=== PATIENT | female | born 1955 | race African-American/Black ===

== ENCOUNTER 2017-07-28 18:23 | Emergency (ER) | payer MEDICAID, OTHER ==
[2017-07-28 19:36] LABS: #Lymphocytes 1.9 thou/uL (1.20-3.40); #Monocytes 0.2 thou/uL (0.11-0.59); %Basophils 0.1 % (0.0-1.0); %Eosinophils 0.2 % (0.0-10.0); %Lymphocytes 37.4 % (21.0-51.0); %Monocytes 4.4 % (0.0-10.0); Hematocrit 40.4 % (36.0-47.0); Mean Platelet Volume 8.1 fL (7.4-10.4); Red Blood Cell (RBC) Count 4.57 mill/uL (4.20-5.40); White Blood Cell (WBC) Count 5.2 thou/uL (4.8-10.8)
[2017-07-28 19:54] LABS: Anion Gap 12 mmol/L (10-20); BUN (Urea Nitrogen) 26 mg/dL (9.8-20.1); Calc. Creatinine Clearance 0 mL/min (70-130); Calcium 9.5 mg/dL (7.8-10.44); Carbon Dioxide 28 mmol/L (23-31); Chloride 106 mmol/L (98-107); Estimated GFR-MDRD 58
[2017-07-28 20:23] LABS: Bilirubin Negative (Negative); Blood, Urine Trace (Negative); Glucose, Urine (Dipstick) Negative (Negative); Ketone, Urine Negative (Negative); Nitrite Negative (Negative); Protein, Urine (Dipstick) 100 mg/dL (Neg-Trace); Urobilinogen 0.2 mg/dL (0.2-1.0)
[2017-07-28 20:24] LABS: Bacteria/HPF None Seen HPF (None Seen); Hyaline Casts/LPF 0-3 HYALINE CAST LPF (0-3 Hyaline); RBC/HPF 0-3 HPF (0-3); Squamous Epithelial 0-3 HPF (0-3); WBC/HPF 0-3 HPF (0-3)
== END 2017-07-28 21:28 | disposition home or self-care (01) ==
LOC: ERS 18:23
DX: S30.814A Abrasion of vagina and vulva, initial encounter (principal); E11.9 Type 2 diabetes mellitus without complications; E78.5 Hyperlipidemia, unspecified; F32.9 Major depressive disorder, single episode, unspecified; Z79.899 Other long term (current) drug therapy; Z79.84 Long term (current) use of oral hypoglycemic drugs
CPT/HCPCS: 36415; 51701; 80048; 81003; 81015; 82274; 85025; 87086; 87480; 87491; 87510; 87591; 87660; A4353

== ENCOUNTER 2020-03-01 16:23 | Inpatient (IN) | payer OTHER ==
[2020-03-01 17:31] LABS: #Monocytes 0.3 thou/uL (0.11-0.59); #Neutrophils 4.1 thou/uL (1.40-6.50); %Basophils 0.1 % (0.0-1.0); %Eosinophils 0.3 % (0.0-10.0); %Lymphocytes 17.8 % (21.0-51.0); %Monocytes 5.1 % (0.0-10.0); %Neutrophils 76.7 % (42.0-75.0); Hemoglobin 11.4 g/dL (12.0-16.0); Mean Corpuscular HGB CONC 33.6 g/dL (32.0-36.0); Mean Corpuscular Hemoglobin 30.8 pg (27.0-31.0); Mean Corpuscular Volume 91.8 fL (78.0-98.0); Mean Platelet Volume 8.6 fL (7.4-10.4); Platelet Count 176 thou/uL (130-400); RBC Distribution Width 12.6 % (11.5-14.5); White Blood Cell (WBC) Count 5.4 thou/uL (4.8-10.8)
--- NOTE | 2020-03-01 17:46 | RAD ---
SINGLE VIEW OF THE CHEST: 03/01/20 COMPARISON: 08/14/09. HISTORY: Shortness of breath and congestion for a week. FINDINGS: Single view of the chest shows an enlarged cardiomediastinal silhouette. There appears to be a small left pleural effusion. Adjacent atelectasis may be present. IMPRESSION: 1. Cardiomegaly. 2. Small left pleural effusion. POS: EAA
[2020-03-01 17:53] LABS: ALT (SGPT) 8 U/L (8-55); AST (SGOT) 10 U/L (5-34); Albumin 3.2 g/dL (3.4-4.8); Alkaline Phosphatase 55 U/L (40-110); Anion Gap 14 mmol/L (10-20); BUN (Urea Nitrogen) 28 mg/dL (9.8-20.1); Bilirubin, Total 0.5 mg/dL (0.2-1.2); Calc. Creatinine Clearance 0 mL/min (70-130); Calcium 8.2 mg/dL (7.8-10.44); Carbon Dioxide 24 mmol/L (23-31); Chloride 115 mmol/L (98-107); Estimated GFR-MDRD 26; Globulin 3.4 g/dL (2.4-3.5); Glucose 98 mg/dL (80-115); Potassium 4.7 mmol/L (3.5-5.1); Protein, Total 6.6 g/dL (6.0-8.3); Sodium 148 mmol/L (136-145)
[2020-03-01] MEDS ORDERED: Acetaminophen 500 MG TAB ONE (20:37)
[2020-03-01] MEDS ORDERED: Enoxaparin Sodium 100 MG/ML SYRINGE ONE (21:23)
[2020-03-01] MEDS ORDERED: Azithromycin 500 MG VIAL ONE (21:23)
[2020-03-01] MEDS ORDERED: Senokot S 8.6-50 MG TAB PO PRN (21:52)
[2020-03-01] MEDS: Sodium Chloride 0.45% 1,000 ML IV SCH (22:35)
[2020-03-02] MEDS ORDERED: Simethicone Chewable 80 MG TAB PO PRN (02:41)
--- NOTE | 2020-03-02 03:20 | HP ---
CHIEF COMPLAINT: Shortness of breath. HISTORY OF PRESENT ILLNESS: The patient is a 64-year-old female, who lives at [facility], who presents to the hospital with complaints of shortness of breath going on for the past week. Per the ER records, it is noted that the there was an employee at [facility] who was positive for COVID. The patient was swabbed on , however, her results have not been up yet. The patient has a history of stroke with left-sided weakness and paralysis. She denies any cough, denies any fevers; however, states that she has been feeling shortness of breath at times. Denies any chest tightness, any abdominal pain. However, she stated that she had some diarrhea yesterday, which resolved. The patient is bed-bound and does not ambulate. In the ER, she was given Lovenox full dose. Unable to get a CTA for concerns for acute kidney injury. The patient states that she has been short of breath and that is why she has not been eating and drinking very much. However, denies any difficulty swallowing or any pain. PAST MEDICAL HISTORY: She has a history of stroke, has a history of epilepsy, anemia, osteoporosis, acute subdural hematoma, hemorrhoids, diabetes type 2, and hyperlipidemia. PAST SURGICAL HISTORY: She has had a subdural hematoma and surgical history of cholecystectomy. SOCIAL HISTORY: She denies any alcohol use, drug use, or smoking history. She is a full code. REVIEW OF SYSTEMS: All negative except the ones mentioned above in the HPI. ALLERGIES: NO KNOWN DRUG ALLERGIES. MEDICATIONS: She is on the following medications; 1. Amlodipine 10 mg daily. 2. She is on amoxicillin 500 mg twice a day until 03/04. 3. Atorvastatin 40 mg daily. 4. Colace 100 mg as needed. 5. Coreg 25 mg twice a day. 6. Hydralazine 10 mg every 6 hours as needed. 7. Hydralazine 25 mg twice a day. 8. Ipratropium as needed. 9. Levothyroxine 50 mcg daily. 10. Sertraline 25 mg daily. 11. Vitamin D daily. PHYSICAL EXAMINATION: VITAL SIGNS: As of the following; temperature 98.0, 86, 18, 92% on room air, 129/86. GENERAL: She is awake, alert, and oriented x3. Does not appear in any distress. CV: S1, S2 present. No murmurs, rubs, or gallops. LUNGS: Clear to auscultation. No rhonchi or wheezes noted. ABDOMEN: Soft, nontender. Bowel sounds are present x2. EXTREMITIES: She does have lower extremity edema. NEUROVASCULAR: She does have left-sided paralysis, upper extremity and lower extremity and she does have some slurred speech also. SKIN: No cuts, lesions or bruises noted. LABORATORY RESULTS: Her EKG is reviewed which appears to be regular normal sinus. WBC of 5.0, hemoglobin of 11.4, hematocrit of 34.0, platelets of 176, lymphocytes are low. Chemistry; sodium of 148, potassium of 4.7, BUN of 20, creatinine of 2.31. LFTs are normal. Troponins are negative. Her urine appears she has trace of blood. She did have a chest x-ray which indicated small left pleural effusion and cardiomegaly. ASSESSMENT AND PLAN: The patient is a 64-year-old female, who presents to the hospital with complaints of dyspnea. 1. Shortness of breath. The patient did have mildly elevated BNP of 117, however, nothing significant. Her chest x-ray has some mild effusion, nothing significant either. We will go ahead and get an echocardiogram on this patient. We retest her for COVID since we called the senior care who stated that the results might take about a week to come back. She may benefit from the Decadron if she is COVID positive. She is currently now on COVID isolation. I will hold off on the neb treatments. However, her lungs sound clear. We will hydrate her gently and see if her creatinine improves. 2. Acute kidney injury. Her baseline creatinine back in 2017 was 1.15, she is currently 2.31. We will hydrate her, check her labs in the morning. 3. Hypernatremia, possible from dehydration, mild. We will continue to monitor and give her some half-normal saline. 4. Cerebrovascular accident. I do not see aspirin on her medication list. It states that she had a subdural hematoma, unclear how old that is. We will continue the statin and I will add a baby aspirin. 5. Deep venous thrombosis prophylaxis. I will put her on Lovenox or heparin for deep vein thrombosis prophylaxis. Her D-dimer was only mildly elevated at 0.77. Unclear of the etiology of her shortness of breath. We will also get Speech to evaluate her for possible aspiration. Job ID: [id number]
[2020-03-02] MEDS: AMOXicillin 250 MG CAP PO SCH ×3 (06:10→20:39)
[2020-03-02] MEDS: Levothyroxine Sodium 50 MCG TAB PO SCH (06:11)
[2020-03-02] MEDS: Carvedilol 25 MG TAB PO SCH ×2 (08:20→16:41)
[2020-03-02] MEDS: Aspirin 81 mg Enteric Coated Tablet PO SCH (08:20)
[2020-03-02] MEDS: Ezetimibe 10 MG TAB PO SCH (08:20)
[2020-03-02] MEDS: Latanoprost 0.005% Ophth Soln 2.5 ml Bottle EA EYE SCH (08:20)
[2020-03-02] MEDS ORDERED: Furosemide 40 MG/4 ML VIAL SLOW IVP SCH ×2 (09:00→15:30)
[2020-03-02] MEDS ORDERED: Enoxaparin Sodium 40 MG/0.4 ML SYRINGE SC SCH (09:00)
[2020-03-02] MEDS: Sodium Chloride 0.45% 1,000 ML IV SCH ×2 (10:21→11:54)
[2020-03-02 10:29] LABS: #Lymphocytes 0.8 thou/uL (1.20-3.40); #Monocytes 0.3 thou/uL (0.11-0.59); #Neutrophils 5.2 thou/uL (1.40-6.50); %Basophils 0.1 % (0.0-1.0); %Eosinophils 0.6 % (0.0-10.0); %Lymphocytes 12.5 % (21.0-51.0); %Monocytes 4.7 % (0.0-10.0); Hemoglobin 10.4 g/dL (12.0-16.0); Mean Corpuscular HGB CONC 32.7 g/dL (32.0-36.0); Mean Corpuscular Hemoglobin 30.2 pg (27.0-31.0); Mean Corpuscular Volume 92.5 fL (78.0-98.0); Mean Platelet Volume 9.4 fL (7.4-10.4); Platelet Count 131 thou/uL (130-400); RBC Distribution Width 12.6 % (11.5-14.5); Red Blood Cell (RBC) Count 3.44 mill/uL (4.20-5.40); White Blood Cell (WBC) Count 6.4 thou/uL (4.8-10.8)
[2020-03-02 10:57] LABS: ALT (SGPT) 10 U/L (8-55); AST (SGOT) 14 U/L (5-34); Albumin 2.9 g/dL (3.4-4.8); Alkaline Phosphatase 53 U/L (40-110); Anion Gap 16 mmol/L (10-20); BUN (Urea Nitrogen) 28 mg/dL (9.8-20.1); Bilirubin, Total 0.4 mg/dL (0.2-1.2); Calc. Creatinine Clearance 39 mL/min (70-130); Calcium 7.8 mg/dL (7.8-10.44); Carbon Dioxide 19 mmol/L (23-31); Chloride 117 mmol/L (98-107); Estimated GFR-MDRD 26; Globulin 3.1 g/dL (2.4-3.5); Glucose 72 mg/dL (80-115); Potassium 4.7 mmol/L (3.5-5.1); Sodium 147 mmol/L (136-145)
[2020-03-02 11:51] LABS: SARS-CoV-2 MS2 Positive; SARS-CoV-2 N Gene Negative; SARS-CoV-2 S Gene Negative; SARS-CoV-2 orf1ab Negative
[2020-03-02] MEDS ORDERED: Ondansetron ODT 4 MG TAB PO PRN (11:53)
[2020-03-02] MEDS: Acetaminophen 325 MG TAB PO PRN (14:13)
--- NOTE | 2020-03-02 19:53 | PDOC.HOSPP ---
- Subjective Encounter Date: 03/02/20 Encounter Time: 16:00 Subjective: CC: SOB The patient reports chronic shortness of breath. She reports having multiple strokes and being bed-bound at baseline. She has mild dry cough. She states she feels she cannot take a deep breath She denies URI symptoms Patient desaturated when weaned down to room air this afternoon - Objective Vital Signs & Weight: Vital Signs (12 hours) Temp Pulse Resp BP Pulse Ox 03/02/20 19:26 95 03/02/20 16:10 80 18 95 03/02/20 16:05 83 18 72 L 03/02/20 16:02 97.4 F L 84 18 147/73 H 03/02/20 12:10 98.4 F 81 16 155/72 H 96 03/02/20 08:15 98.3 F 72 18 147/70 H 93 L Weight Weight 220 lb 7.396 oz I&O: 03/01/20 03/02/20 03/03/20 06:59 06:59 06:59 Intake Total 1050 Balance 1050 Result Diagrams: 03/02/20 10:19 03/02/20 10:19 Additional Labs: Accuchecks 03/02/20 03/02/20 16:13 12:05 POC Glucose 79 75 Hospitalist ROS - Review of Systems Constitutional: denies: fever, chills - Medication Medications: Active Medications Generic Name Dose Route Start Last Admin Trade Name Freq PRN Reason Stop Dose Admin Acetaminophen 650 mg 03/01/20 21:52 03/02/20 14:13 Tylenol PO 650 mg Q4H PRN Administration Headache/Fever/Mild Pain (1-3) Amoxicillin 500 mg 03/02/20 06:00 03/02/20 14:13 Amoxil PO 500 mg Q8HR TRANG Administration Aspirin 81 mg 03/02/20 09:00 03/02/20 08:20 Ecotrin PO 81 mg DAILY TRANG Administration Carvedilol 25 mg 03/02/20 08:00 03/02/20 16:41 Coreg PO 25 mg BID-WM TRANG Administration Ezetimibe 10 mg 03/02/20 09:00 03/02/20 08:20 Zetia PO 10 mg DAILY TRANG Administration Furosemide 40 mg 03/02/20 09:00 03/02/20 15:38 Lasix SLOW IVP Not Given 0900 [facility] Latanoprost 1 drop 03/02/20 09:00 03/02/20 08:20 Xalatan 0.005% Ophth Soln EA EYE 1 drop DAILY TRANG Administration Levothyroxine Sodium 50 mcg 03/02/20 06:00 03/02/20 06:11 Synthroid PO 50 mcg 0600 TRANG Administration Ondansetron HCl 4 mg 03/02/20 11:53 03/02/20 14:14 Zofran Odt PO 4 mg Q8H PRN Administration Nausea/Vomiting Sertraline HCl 25 mg 03/02/20 09:00 03/02/20 08:20 Zoloft PO 25 mg DAILY TRANG Administration - Exam General Appearance: NAD, awake alert Eye: PERRL, anicteric sclera ENT: normocephalic atraumatic, no oropharyngeal lesions Neck: supple, no JVD Heart: RRR, no murmur, no gallops, no rubs Respiratory: no wheezes, rales Respiratory - other findings: dec breath sounds bilaterally but with poor effort Gastrointestinal: soft, non-tender, non-distended, normal bowel sounds, no palpable masses Extremities: no cyanosis, no clubbing Skin: normal turgor, no lesions, no rashes Neurological: cranial nerve grossly intact, normal sensation to touch, no focal deficits, no new deficit Musculoskeletal: normal tone, normal strength, no muscle wasting Psychiatric: normal affect, normal behavior, A&O x 3 Hosp A/P - Plan Chest Xray: cardiomegaly, left pleural effusion This is a 64 year old female who presented with SOB and respiratory failure Acute hypoxic respiratory failure secondary to like CHF - COVID negative. Xray shows cardiomegaly. Still on 2L nasal cannula - will start IV lasix - ECHO pending YING - creatinine 2.30. Start IV lasix - check UA Hypernatremia/Hyperchloremia - sodium 147. Will d/c IV fluids - give 40 mg IV lasix Code statuS: full code
[2020-03-02] MEDS: Atorvastatin Calcium 40 MG TAB PO SCH (20:39)
[2020-03-03 00:52] LABS: Bacteria/HPF None Seen HPF (None Seen); Bilirubin Negative (Negative); Blood, Urine Negative (Negative); Clarity Clear (Clear); Glucose, Urine (Dipstick) Normal (Negative); Ketone, Urine Trace mg/dL (Negative); Leukocyte Negative Leu/uL (Negative); Nitrite Negative (Negative); Protein, Urine (Dipstick) 100 mg/dL (Neg-Trace); RBC/HPF 0-3 HPF (0-3); Specific Gravity, Urine 1.013 (1.002-1.036); Squamous Epithelial None Seen HPF (0-3); Urobilinogen Normal mg/dL (Less than 2); WBC/HPF 0-3 HPF (0-3); pH, Urine 5.5 (5.0-9.0)
[2020-03-03] MEDS: Levothyroxine Sodium 50 MCG TAB PO SCH (05:42)
[2020-03-03] MEDS: AMOXicillin 250 MG CAP PO SCH ×2 (05:42→14:00)
[2020-03-03 06:15] LABS: #Lymphocytes 0.7 thou/uL (1.20-3.40); #Neutrophils 13.3 thou/uL (1.40-6.50); %Basophils 0.1 % (0.0-1.0); %Eosinophils 0.1 % (0.0-10.0); %Lymphocytes 4.3 % (21.0-51.0); %Monocytes 6.6 % (0.0-10.0); %Neutrophils 88.9 % (42.0-75.0); Hemoglobin 11.3 g/dL (12.0-16.0); Mean Corpuscular HGB CONC 32.9 g/dL (32.0-36.0); Mean Corpuscular Hemoglobin 31.2 pg (27.0-31.0); Mean Corpuscular Volume 94.8 fL (78.0-98.0); Mean Platelet Volume 8.7 fL (7.4-10.4); Platelet Count 222 thou/uL (130-400); RBC Distribution Width 12.6 % (11.5-14.5); Red Blood Cell (RBC) Count 3.61 mill/uL (4.20-5.40); White Blood Cell (WBC) Count 14.9 thou/uL (4.8-10.8)
[2020-03-03 06:33] LABS: Anion Gap 15 mmol/L (10-20); BUN (Urea Nitrogen) 42 mg/dL (9.8-20.1); Calc. Creatinine Clearance 28 mL/min (70-130); Calcium 8.1 mg/dL (7.8-10.44); Carbon Dioxide 20 mmol/L (23-31); Chloride 115 mmol/L (98-107); Estimated GFR-MDRD 18; Glucose 104 mg/dL (80-115); Potassium 6.4 mmol/L (3.5-5.1); Sodium 144 mmol/L (136-145)
[2020-03-03] MEDS ORDERED: Calcium Gluconate 4.6 MEQ in Sodium Chloride 0.9% 100 ML IVPB SCH (06:37)
[2020-03-03] MEDS ORDERED: Sodium Chloride 0.9% 500 ML IV SCH (06:45)
--- NOTE | 2020-03-03 08:06 | ULT ---
ULTRASOUND RETROPERITONEUM COMPLETE: (RENAL) DATE: 03/03/2020 HISTORY: Acute kidney injury in 64-year-old female FINDINGS: Left kidney is very poorly visualized because patient is unable to follow instructions for right late ral decubitus positioning. The right kidney measures 10.5 x 5.5 x 5 cm. The left kidney measures 9 x 5.5 x 4.5 cm. Both kidneys have diffusely abnormally increased parenchymal echogenicity. There is no hydronephrosis. No moderate sized or large right renal cystic or solid right renal lesion is identified. The urinary bladder volume is 25 mL at time of scan. IMPRESSION: 1) Evidence for medical renal disease. 2) no hydronephrosis.
[2020-03-03] MEDS ORDERED: Heparin 10,000 UNITS/ 10 ML VIAL ONE (09:03)
[2020-03-03] MEDS: Aspirin 81 mg Enteric Coated Tablet PO SCH (09:40)
[2020-03-03] MEDS: Ezetimibe 10 MG TAB PO SCH (09:41)
[2020-03-03] MEDS: Latanoprost 0.005% Ophth Soln 2.5 ml Bottle EA EYE SCH ×2 (09:42)
--- NOTE | 2020-03-03 11:11 | RAD ---
Chest AP view INDICATION: Hypoxia COMPARISON: March 01, 2020 FINDINGS: Lungs: There is worsening bilateral perihilar airspace disease suspicious for airspace edema Cardiac silhouette: Moderate to prominent cardiomegaly persists Pulmonary vasculature: Pulmonary vascular congestion persists Pleural spaces: There are tiny right and [id number] left pleural effusions, increased in size from prior exam. Upper abdomen: No abnormality seen. Osseous structures: No acute osseous abnormality. Additional findings: None. IMPRESSION: Worsening CHF
[2020-03-03 11:41] LABS: Calcium 7.8 mg/dL (7.8-10.44); Chloride 117 mmol/L (98-107); Sodium 147 mmol/L (136-145)
[2020-03-03 11:42] LABS: Glucose 93 mg/dL (80-115)
[2020-03-03 11:43] LABS: Anion Gap 22 mmol/L (10-20); Carbon Dioxide 15 mmol/L (23-31)
[2020-03-03 11:45] LABS: Calc. Creatinine Clearance 25 mL/min (70-130); Estimated GFR-MDRD 15
[2020-03-03 11:46] LABS: BUN (Urea Nitrogen) 46 mg/dL (9.8-20.1); Potassium 7.1 mmol/L (3.5-5.1)
[2020-03-03 12:45] LABS: Base Excess (BEa) -8.9 mEq/L (-2.0 to +3.0); Calcium, Ionized (arterial) 1.21 mmol/L (1.12-1.30); Carboxyhemoglobin (COHb) 0.8 gm% (0.0-3.0); Hemoglobin (Hb) 11.3 g/dL (12.0-16.0); O2 Tension (PaO2), arterial 62.9 mmHg (> 80.0); Potassium - ABG Lab 6.13 mmol/L (3.70-5.30)
[2020-03-03 12:46] LABS: CO2 Tension 101.1 mmHg (35.0-45.0); pH, Arterial 6.99 (7.35-7.45)
[2020-03-03 12:47] LABS: ALV-art Gradient 10.365 (0-20); Puncture Site RRA
--- NOTE | 2020-03-03 13:01 | PDOC.HOSPP ---
- Subjective Encounter Date: 03/03/20 Encounter Time: 13:02 Subjective: The patient was noted to desaturate overnight and become less responsive. Patient minimally arousable to stimuli. Potassium was 6.7 this morning, 500 cc fluid bolus was given. Calcium gluconate was given as well. Repeat BMP showed worsening potassium up to 7.1. Per nursing they were unable to give her kayexelate. Albuterol ordered and request for kayexelate rectally . Nephrology also contacted as well - Objective Vital Signs & Weight: Vital Signs (12 hours) Temp Pulse Resp BP BP Pulse Ox 03/03/20 11:36 67 26 H 96/62 100 03/03/20 11:30 69 30 H 92/60 96 03/03/20 08:00 96 03/03/20 07:01 97.4 F L 73 15 90/57 L 96 03/03/20 05:57 97.3 F L 71 22 H 91/56 L 98 Weight Weight 225 lb I&O: 03/02/20 03/03/20 03/04/20 06:59 06:59 06:59 Intake Total 1050 30 Balance 1050 30 Result Diagrams: 03/03/20 05:46 03/03/20 10:35 Additional Labs: Accuchecks 03/03/20 03/03/20 03/02/20 11:43 03:57 19:59 POC Glucose 103 114 H 109 03/02/20 03/02/20 16:13 12:05 POC Glucose 79 75 Hospitalist ROS - Review of Systems Constitutional: denies: fever, chills - Medication Medications: Active Medications Generic Name Dose Route Start Last Admin Trade Name Lemuelq PRN Reason Stop Dose Admin Acetaminophen 650 mg 03/01/20 21:52 03/02/20 14:13 Tylenol PO 650 mg Q4H PRN Administration Headache/Fever/Mild Pain (1-3) Amoxicillin 500 mg 03/02/20 06:00 03/03/20 05:42 Amoxil PO 03/04/20 06:00 Not Given Q8HR TRANG Aspirin 81 mg 03/02/20 09:00 03/03/20 09:40 Ecotrin PO Not Given DAILY TRANG Atorvastatin Calcium 40 mg 03/02/20 21:00 03/02/20 20:39 Lipitor PO 40 mg HS TRANG Administration Carvedilol 25 mg 03/02/20 08:00 03/02/20 16:41 Coreg PO 25 mg BID-WM TRANG Administration Ezetimibe 10 mg 03/02/20 09:00 03/03/20 09:41 Zetia PO Not Given DAILY TRANG Furosemide 40 mg 03/02/20 09:00 03/02/20 15:38 Lasix SLOW IVP Not Given 0900 [facility] Latanoprost 1 drop 03/02/20 09:00 03/03/20 09:42 Xalatan 0.005% Ophth Soln EA EYE 1 drop DAILY TRANG Administration Levothyroxine Sodium 50 mcg 03/02/20 06:00 03/03/20 05:42 Synthroid PO Not Given 0600 TRANG Ondansetron HCl 4 mg 03/02/20 11:53 03/02/20 14:14 Zofran Odt PO 4 mg Q8H PRN Administration Nausea/Vomiting Sertraline HCl 25 mg 03/02/20 09:00 03/03/20 09:42 Zoloft PO Not Given DAILY [facility] Sodium Chloride 10 ml 03/03/20 09:00 03/03/20 09:43 Flush - Normal Saline IVF 10 ml Q12HR TRANG Administration - Exam General Appearance: NAD General - other findings: less responsive Eye: PERRL, anicteric sclera ENT: normocephalic atraumatic, no oropharyngeal lesions Neck: no JVD Heart: RRR, no murmur, no gallops, no rubs Respiratory - other findings: diminished breath sounds bilaterally, poor effort Gastrointestinal: soft, non-tender, non-distended, normal bowel sounds Extremities: 1+ LE edema Skin: normal turgor, no lesions, no rashes Neurological: cranial nerve grossly intact, normal sensation to touch, no focal deficits, no new deficit Hosp A/P - Plan Chest Xray: cardiomegaly, left pleural effusion Renal US: chronic kidney disease, no hydronephrosis This is a 64 year old female who presented with SOB and respiratory failure #Acute hypoxic respiratory failure secondary to like aspiration pneumonia vs fluid overload #Acute respiratory acidosis - COVID negative. Xray shows cardiomegaly. She was on oral amoxicillin for pneumonia initially. REpeat Xray today shows worsening pleural effusion on left side. -given decompensation and WBC up to 14.9, will check blood cultures, start vanc and zosyn - hold additional lasix since patient may be dialyzed - ECHO pending - pulm consult, possibly needs BIPAP or intubation #YING #Hyperkalemia -creatinine worsening, has decreased urine output - nephrology consulted, plan for possible dialysis #Hypernatremia -improved with lasix but then worsened again after fluid bolus - likely needs dialysis Anemia - Hb 11, stable Code statuS: full code
[2020-03-03] MEDS ORDERED: Vancomycin HCl 1.5 GM in Sodium Chloride 0.9% 250 ML 300 ML IVPB SCH (14:00)
[2020-03-03] MEDS: Sodium Chloride 0.9% 1,000 ML IV SCH (14:00)
[2020-03-03] MEDS ORDERED: Vancomycin HCl 750 MG in Sodium Chloride 0.9% 250 ML 250 ML IVPB SCH (14:00)
[2020-03-03] MEDS ORDERED: Piperacillin/Tazobactam 3.375 GM in Sodium Chloride 0.9% 100 ML IVPB SCH (14:00)
[2020-03-03] MEDS ORDERED: Vancomycin Sliding Scale 1 EACH FS ONE (14:00)
[2020-03-03] MEDS ORDERED: Vancomycin 1 GM in Premix Bag 1 BAG IVPB SCH (14:00)
[2020-03-03] MEDS ORDERED: Vancomycin HCl 1.25 GM in Sodium Chloride 0.9% 250 ML 250 ML IVPB SCH (14:00)
[2020-03-03] MEDS ORDERED: HOLD VANCOMYCIN FOR LEVEL >20 FS SCH (14:00)
[2020-03-03] MEDS ORDERED: Fentanyl BOLUS 250 ML IVPB PRN (14:19)
[2020-03-03] MEDS ORDERED: Morphine 2 MG/ML SYRINGE SLOW IVP PRN (14:19)
[2020-03-03] MEDS ORDERED: fentaNYL Citrate/PF 2,000 MCG in Sodium Chloride 0.9% 60 ML IV SCH (14:19)
[2020-03-03] MEDS ORDERED: Lorazepam 2 MG/ML VIAL SLOW IVP PRN (14:19)
[2020-03-03] MEDS ORDERED: Propofol BOLUS 1,000 MG/100 ML VIAL IV PRN (14:19)
[2020-03-03] MEDS ORDERED: Norepinephrine 8 MG/0.9% NS 250 ML ONE (14:25)
[2020-03-03] MEDS ORDERED: Dextrose 50% Abboject 50 ML SYRINGE SLOW IVP SCH (14:45)
[2020-03-03] MEDS ORDERED: Insulin Regular 300 UNITS/3 ML VIAL IVP SCH (14:45)
--- NOTE | 2020-03-03 14:49 | CON ---
DATE OF CONSULTATION: 03/03/2020 CONSULTING PHYSICIAN: Marie Peña MD REASON FOR CONSULT: Hyperkalemia, acidosis, altered mentation, uremia. REASON FOR ADMISSION: Shortness of breath. HISTORY OF PRESENT ILLNESS: This is a 64-year-old female with history of CVA, epilepsy, anemia, osteoporosis, hemorrhoids, type 2 diabetes, who came to the hospital with shortness of breath that had been treated. She was found to have potassium of 7.1 this morning with acidosis and altered mentation. She was also found to have pH of 6.9 later, and she was being moved to ICU. The patient is obtunded and cannot give any history and I did talk with her brother over the phone. PAST MEDICAL HISTORY: Positive for CVA, epilepsy, anemia, osteoporosis, Subdural hematoma, hemorrhoids, type 2 diabetes, and hyperlipidemia. PAST SURGICAL HISTORY: Subdural hematoma, cholecystectomy. HOME MEDICATIONS: 1. Amlodipine. 2. Amoxicillin. 3. Atorvastatin. 4. Colace. 5. Coreg. 6. Hydralazine. 7. Ipratropium. 8. Levothyroxine. 9. Sertraline. 10. Vitamin D. ALLERGIES: NO KNOWN DRUG ALLERGIES. SOCIAL HISTORY: No smoking, alcohol, or illicit drugs abuse. FAMILY HISTORY: No history of kidney disease. REVIEW OF SYSTEMS: Could not be obtained. PHYSICAL EXAMINATION: GENERAL: Reveals an obese female, who is obtunded. VITAL SIGNS: Temperature 97.5, pulse 73, respiratory rate 18, and blood pressure 92/60. HEENT: Atraumatic, normocephalic. NECK: Supple. CV: S1 and S2 heard. RESPIRATORY: Clear. GASTROINTESTINAL: Abdomen is soft. MUSCULOSKELETAL: No edema. DERMATOLOGIC: No skin rash. NEUROLOGIC: Obtunded. LABORATORY DATA: Potassium 7, BUN is 46, and creatinine is 3.6. ASSESSMENT AND PLAN: 1. Acute kidney injury with hyperkalemia. Plan to have dialysis emergently. 2. Hypernatremia. 3. Severe hyperkalemia. 4. Acidosis. 5. Anemia. 6. Altered mentation. 7. Acute hypoxic respiratory failure. 8. Respiratory acidosis. Prognosis is y poor. I did talk over with her brother over the phone and he agrees with emergent dialysis. We will continue to have close monitor. Surgeon is being notified for dialysis access. Dialysis nurse notified. Dialysis orders as tolerated. Prognosis is very, very poor. Continue critical care monitoring and care and agree with involving critical care team and we will continue close followup for renal issues. Plan is to have dialysis once access is placed. If tolerated risk for complications during dialysis. We will have close followup. Thank you for the consult. Job ID: [id number]
[2020-03-03] MEDS ORDERED: Vancomycin 1.5 GRAM/300 ML BAG 1.5 GM in Premix Bag 1 BAG IVPB SCH (15:00)
[2020-03-03 16:21] LABS: Hep B Core Total Ab Non-Reactive (NonReactive); Thyroid Stimulating Hormone 0.8412 uIU/mL (0.35-4.94)
[2020-03-03 16:22] LABS: HBSAB Concentration 2.55 mIU/mL; HBSAg Index 0.16 S/CO (0-0.99); Hep B Surf AB Non-Reactive (NonReactive); Hep B Surf Ag Non-Reactive S/CO (NonReactive); Hep C IgG Ab Non-Reactive (NonReactive); Hep C Index 0.13 S/CO (0-0.79)
--- NOTE | 2020-03-03 17:07 | CON ---
DATE OF CONSULTATION: HISTORY OF PRESENT ILLNESS: Amy Jerez is a 64-year-old morbidly obese female, 103 kg. She was admitted on 03/01 with shortness of breath from the senior care. She had previous CVA with left-sided weakness. She had further change in her mental status today with an emergency blood gas which shows a pO2 of 62, pCO2 of 101, pH of 7.69, was transferred to the ICU as she ws probably intubated. Potassium is 6.3. Additionally, her potassium on the chemistry profile is 7.1, BUN is 46, creatinine 3.61, and glucose is 103. She had a chest x-ray taken at 10 o'clock this morning, which showed she had cardiomegaly, possibly left-sided pleural effusion. Unable to get any additional information. She was very encephalopathic, unable to arouse. PAST MEDICAL HISTORY: Acute on chronic renal failure, CVA, osteoporosis, previous subdural hematoma, previous epilepsy, chronic anemia, history of glaucoma, hyperlipidemia, and morbid obesity. PAST SURGICAL HISTORY: Cholecystectomy, subdural evacuation. SOCIAL HISTORY: No alcohol or tobacco abuse. MEDICATIONS: From the senior care include: 1. Eyedrops for glaucoma. 2. Zofran. 3. Zoloft 25. 4. DuoNeb. 5. Hydralazine 25 twice a day. 6. Zetia 10. 7. Coreg 25 b.i.d. 8. Amlodipine 10. 9. Tylenol. She is now on vancomycin, Zosyn, Lasix, Synthroid, and Coreg. PHYSICAL EXAMINATION: NEUROLOGIC: She is encephalopathic. VITAL SIGNS: Temperature 97, pulse 67, respirations 26, blood pressure 92/62. CHEST: Decreased breath sounds. No wheezing. CARDIAC: Normal S1, S2. No gallops. ABDOMEN: Massive. EXTREMITIES: Trace edema. LABORATORY DATA: White count 14,000, H and H 11 and 34, platelet count is normal. Creatinine is 3.6, BUN 46. ASSESSMENT: 1. Acute on chronic respiratory failure, morbid obesity, probably hypoventilation syndrome. 2. Probably retained secretions. 3. Renal failure. 4. History of CVA. 5. History of hypertension. PLAN: She is intubated. #8 tube was placed with a bronchoscope with a bite block in place without any sedation. There was copious amount of purulent secretions back of throat, which was suctioned. Tube was passed above the vocal cords, placed above the wilma. She was bagged. Bronchoscope was repassed again to assess the placement of the tube. Both lungs were suctioned and lavaged until clear. No endobronchial disease was seen. She was connected to she was given an amp of D50 and 10 units of insulin. For the potassium, she has emergency dialysis. I agree with antibiotics, supportive care. Antibiotics are adjusted for renal failure. This is a 45-minute critical care time exclusive of the intubation. Job ID: [id number]
[2020-03-03] MEDS: cefTRIAXone\\ROCEPHIN 1 GM in Sodium Chloride 0.9% 100 ML IVPB SCH (17:21)
--- NOTE | 2020-03-03 18:09 | OP ---
DATE OF PROCEDURE: 03/03/2020 PREOPERATIVE DIAGNOSES: 1. Acute renal failure. 2. Acute hyperkalemia. POSTOPERATIVE DIAGNOSES: 1. Acute renal failure. 2. Acute hyperkalemia. PROCEDURE PERFORMED: Placement of right femoral Trialysis catheter for emergent hemodialysis. INDICATIONS FOR PROCEDURE: A 64-year-old woman, admitted with worsening acute renal failure and hyperkalemia. Potassium this morning was noted at 6.4 and repeat noted at 7.1. I was asked to place a temporary dialysis catheter for emergent hemodialysis. DESCRIPTION OF PROCEDURE: Informed consent obtained from the patient's power of compliance attorney. The patient is placed in supine position. Right groin was sterilely prepped and draped in the usual fashion. The right femoral artery was palpated at the groin. Medial to this, the overlying skin was anesthetized with 1% lidocaine. The right femoral vein was cannulated with an 18-gauge introducer needle, returning dark venous blood. Guidewire was passed through the needle and advanced into the right femoral vein without resistance. The needle was withdrawn over the guidewire. A stab incision was made adjacent to the guidewire using an 11 scalpel. Dilator was advanced over the guidewire, dilating the subcutaneous tissues. Dilator was removed and a triple-lumen Trialysis catheter was advanced over the guidewire and placed in the right femoral vein without resistance down to the hub. Guidewire was removed. Dark venous blood was aspirated from all 3 ports, which were individually flushed first with saline followed by heparin. The catheter was secured to anterior groin using 3-0 nylon suture at 2 points. Sterile dressings were applied. The patient tolerated this procedure without any apparent complication and remained hemodynamically stable following completion of procedure. Job ID: [id number]
[2020-03-03 18:17] LABS: Actual Bicarbonate (HCO3a) 20.9 mEq/L (22-28); Base Excess (BEa) -4.3 mEq/L (-2.0 to +3.0); CO2 Tension 38.9 mmHg (35.0-45.0); Carboxyhemoglobin (COHb) 0.4 gm% (0.0-3.0); Hemoglobin (Hb) 10.3 g/dL (12.0-16.0); O2 Tension (PaO2), arterial 78.9 mmHg (> 80.0); Potassium - ABG Lab 4.35 mmol/L (3.70-5.30); pH, Arterial 7.35 (7.35-7.45)
[2020-03-03 18:25] LABS: ALV-art Gradient 228.975 (0-20); Puncture Site RRA
[2020-03-03] MEDS: Propofol 1,000 MG/100 ML VIAL IV PRN (18:35)
[2020-03-03] MEDS: Atorvastatin Calcium 40 MG TAB PO SCH (21:43)
[2020-03-03 21:59] LABS: Anion Gap 17 mmol/L (10-20); BUN (Urea Nitrogen) 31 mg/dL (9.8-20.1); Calc. Creatinine Clearance 31 mL/min (70-130); Calcium 7.9 mg/dL (7.8-10.44); Carbon Dioxide 22 mmol/L (23-31); Chloride 110 mmol/L (98-107); Estimated GFR-MDRD 20; Glucose 76 mg/dL (80-115); Potassium 4.8 mmol/L (3.5-5.1); Sodium 144 mmol/L (136-145)
[2020-03-03] MEDS ORDERED: hydrALAZINE 25 MG TAB PO SCH (23:45)
[2020-03-04] MEDS: Sodium Chloride 0.9% 1,000 ML IV SCH ×3 (00:37→19:54)
[2020-03-04] MEDS: Propofol 1,000 MG/100 ML VIAL IV PRN (02:58)
[2020-03-04] MEDS: Levothyroxine Sodium 50 MCG TAB PO SCH (06:11)
[2020-03-04] MEDS: hydrALAZINE 10 MG TAB PO PRN ×2 (06:11→15:14)
[2020-03-04 06:55] LABS: Hemoglobin 9.5 g/dL (12.0-16.0); Mean Corpuscular HGB CONC 33.6 g/dL (32.0-36.0); Mean Corpuscular Hemoglobin 30.2 pg (27.0-31.0); Mean Corpuscular Volume 89.9 fL (78.0-98.0); Mean Platelet Volume 8.8 fL (7.4-10.4); Platelet Count 157 thou/uL (130-400); RBC Distribution Width 12.4 % (11.5-14.5); Red Blood Cell (RBC) Count 3.16 mill/uL (4.20-5.40); White Blood Cell (WBC) Count 13.3 thou/uL (4.8-10.8)
[2020-03-04 07:12] LABS: Anion Gap 15 mmol/L (10-20); BUN (Urea Nitrogen) 34 mg/dL (9.8-20.1); Calc. Creatinine Clearance 30 mL/min (70-130); Calcium 7.8 mg/dL (7.8-10.44); Carbon Dioxide 22 mmol/L (23-31); Chloride 111 mmol/L (98-107); Estimated GFR-MDRD 19; Glucose 73 mg/dL (80-115); Sodium 144 mmol/L (136-145)
[2020-03-04 07:41] LABS: Actual Bicarbonate (HCO3a) 18.3 mEq/L (22-28); CO2 Tension 28.1 mmHg (35.0-45.0); Calcium, Ionized (arterial) 1.11 mmol/L (1.12-1.30); Carboxyhemoglobin (COHb) 0.5 gm% (0.0-3.0); Hemoglobin (Hb) 9.7 g/dL (12.0-16.0); O2 Tension (PaO2), arterial 91.8 mmHg (> 80.0); Potassium - ABG Lab 4.03 mmol/L (3.70-5.30); pH, Arterial 7.43 (7.35-7.45)
[2020-03-04 07:46] LABS: Band 3 % (5-11); Lymphocytes 4 % (21-51); MDiff Complete? YES; Monocytes 2 % (0-10); Neutrophil 91 % (42-75); Platelet Morphology Comment Appears Adequate; Polychromasia SLIGHT = 2-3 cells (100X) (0-2/hpf)
[2020-03-04 08:24] LABS: ALV-art Gradient 158.275 (0-20); Puncture Site RB
[2020-03-04] MEDS: Aspirin 81 mg Enteric Coated Tablet PO SCH (08:40)
[2020-03-04] MEDS: Ezetimibe 10 MG TAB PO SCH (08:40)
[2020-03-04] MEDS: hydrALAZINE 25 MG TAB PO SCH ×2 (08:40→19:54)
[2020-03-04] MEDS: Latanoprost 0.005% Ophth Soln 2.5 ml Bottle EA EYE SCH (08:42)
[2020-03-04] MEDS ORDERED: Heparin 10,000 UNITS/ 10 ML VIAL ONE (08:55)
--- NOTE | 2020-03-04 08:59 | PRG ---
DATE OF SERVICE: 03/04/2020 SUBJECTIVE: Amy Jerez remains intubated in the vent, shows emergency dialysis last night. OBJECTIVE: VITAL SIGNS: Saturations are 98%, blood pressure , respirations 18, pulse 80. GENERAL: Morbidly obese. CHEST: Decreased breath sounds. No wheezing. CARDIAC: Normal S1, S2. No gallops. ABDOMEN: No masses. LABORATORY DATA: White count 13,000, H and H of 9 and 28, platelet count 57. PO2 is 91, pCO2 is . Creatinine is 3, BUN is 44, potassium is 4. ASSESSMENT: 1. Morbid obesity. 2. Respiratory failure. 3. Renal failure. 4. Sleep apnea. 5. Hypertension. PLAN: Hold sedation. We will consider weaning and extubation today. TIME SPENT: One-half hour of critical care time. Job ID: [id number]
--- NOTE | 2020-03-04 09:53 | RAD ---
CHEST 1 VIEW: INDICATION: History of intubation. COMPARISON: Prior exam dated 03/03/2020. IMPRESSION: There is worsening central edema pattern. There is persistent cardiomegaly and pulmonary vascular co ngestion. There are tiny bilateral pleural effusions. Endotracheal tube tip is now in place ending 2.7 cm above the wilma. There is a new gastric catheter projecting beyond the field of view and bel ow the left hemidiaphragm. No pneumothorax is evident. POS: BH
[2020-03-04 12:26] LABS: Vancomycin, Random 6.9 ug/mL (See Comment)
[2020-03-04] MEDS ORDERED: Vancomycin 1 GM in Premix Bag 1 BAG IVPB SCH (12:50)
--- NOTE | 2020-03-04 13:05 | PDOC.HOSPP ---
- Subjective Encounter Date: 03/04/20 Encounter Time: 11:00 Subjective: The patient was still intubated. SHe is following commands. Was trying to communicate some concerns but unable to understand patient. She reports some discomfort from the breathing tube. Per nursing, they are planning on keeping her ventilated one more day - Objective Vital Signs & Weight: Vital Signs (12 hours) Temp Pulse Resp BP Pulse Ox 03/04/20 12:00 98.8 F 14 03/04/20 11:19 93 20 100 03/04/20 11:17 95 171/68 H 03/04/20 10:00 12 03/04/20 08:00 16 03/04/20 07:25 92 16 100 03/04/20 07:05 91 197/121 H 03/04/20 07:00 98.8 F 03/04/20 06:11 89 173/98 H 03/04/20 06:00 16 03/04/20 04:00 97.0 F L 16 03/04/20 02:00 16 Weight Admit Weight 220 lb 7.396 oz Weight 225 lb Most Recent Monitor Data Heart Rate from ECG 92 NIBP 170/68 NIBP BP-Mean 102 Respiration from ECG 20 SpO2 100 I&O: 03/03/20 03/04/20 03/05/20 06:59 06:59 06:59 Intake Total 1050 2791 Output Total 140 80 Balance 1050 2651 -80 Result Diagrams: 03/04/20 06:29 03/04/20 06:29 Additional Labs: Accuchecks 03/03/20 16:20 POC Glucose 112 H Hospitalist ROS - Review of Systems Constitutional: denies: fever, chills - Medication Medications: Active Medications Generic Name Dose Route Start Last Admin Trade Name Freq PRN Reason Stop Dose Admin Acetaminophen 650 mg 03/01/20 21:52 03/02/20 14:13 Tylenol PO 650 mg Q4H PRN Administration Headache/Fever/Mild Pain (1-3) Albumin Human 12.5 gm 03/03/20 14:22 03/03/20 16:00 Albumin 5% IVPB 03/04/20 16:00 12.5 gm NOW TRANG Administration Albuterol/Ipratropium 3 ml 03/03/20 19:00 03/04/20 11:20 Duoneb NEB Not Given [id number] TRANG Albuterol/Ipratropium 3 ml 03/04/20 10:30 03/04/20 11:19 Duoneb NEB 3 ml [id number] TRANG Administration Aspirin 81 mg 03/02/20 09:00 03/04/20 08:40 Ecotrin PO 81 mg DAILY TRANG Administration Atorvastatin Calcium 40 mg 03/02/20 21:00 03/03/20 21:43 Lipitor PO 40 mg HS TRANG Administration Carvedilol 25 mg 03/02/20 08:00 03/02/20 16:41 Coreg PO 25 mg BID-WM TRANG Administration Ezetimibe 10 mg 03/02/20 09:00 03/04/20 08:40 Zetia PO 10 mg DAILY TRANG Administration Hydralazine HCl 25 mg 03/04/20 09:00 03/04/20 08:40 Apresoline PO 25 mg BID TRANG Administration Hydralazine HCl 10 mg 03/03/20 23:40 03/04/20 06:11 Apresoline PO 10 mg Q6HR PRN Administration Hypertension Ceftriaxone Sodium 1 gm/ 100 mls @ 200 mls/hr 03/03/20 14:00 03/03/20 17:21 Sodium Chloride IVPB 100 mls Q24HR TRANG Administration Sodium Chloride 1,000 mls @ 100 mls/hr 03/03/20 14:30 03/04/20 08:48 Normal Saline 0.9% IV 1,000 mls .Q10H TRANG Administration Latanoprost 1 drop 03/02/20 09:00 03/04/20 08:42 Xalatan 0.005% Ophth Soln EA EYE 1 drop DAILY TRANG Administration Levothyroxine Sodium 50 mcg 03/02/20 06:00 03/04/20 06:11 Synthroid PO 50 mcg 0600 TRANG Administration Lorazepam 2 mg 03/03/20 14:19 03/03/20 15:24 Ativan SLOW IVP 04/02/20 14:19 2 mg Q1H PRN Administration Breakthrough agitation Ondansetron HCl 4 mg 03/02/20 11:53 03/02/20 14:14 Zofran Odt PO 4 mg Q8H PRN Administration Nausea/Vomiting Propofol 1,000 mg 03/03/20 14:19 03/04/20 02:58 Diprivan IV 07/22/20 14:19 1,000 mg INF PRN Administration TO ACHIEVE GOAL RASS Protocol Sertraline HCl 25 mg 03/02/20 09:00 03/04/20 08:40 Zoloft PO 25 mg DAILY TRANG Administration Sodium Chloride 10 ml 03/03/20 09:00 03/04/20 08:42 Flush - Normal Saline IVF 10 ml Q12HR TRANG Administration - Exam General Appearance: NAD General - other findings: intubated Eye: PERRL, anicteric sclera ENT: normocephalic atraumatic, no oropharyngeal lesions Neck: no JVD Heart: RRR, no murmur, no gallops, no rubs Respiratory: CTAB, no wheezes, no rales, no ronchi Gastrointestinal: soft, non-tender, non-distended, normal bowel sounds Extremities: no cyanosis, no clubbing, no edema Extremities - other findings: left arm restrained. Can move left leg and arms Skin: normal turgor, no rashes Neurological: cranial nerve grossly intact, normal sensation to touch, no focal deficits, no new deficit Musculoskeletal: normal tone, normal strength, no muscle wasting Hosp A/P - Plan Chest Xray: cardiomegaly, left pleural effusion Renal US: chronic kidney disease, no hydronephrosis Chest Xray: worsening pulmonary edema ECHO: EF 60-65%, mild TR, mild MR, mild UT This is a 64 year old female who presented with SOB and respiratory failure #Acute hypoxic respiratory failure secondary to like aspiration pneumonia vs fluid overload #Acute respiratory acidosis - COVID negative. Xray shows cardiomegaly. She was on oral amoxicillin for pneumonia initially. - patient decompensated 03/03, started on IV vanc and ceftriaxone. WBC has improved to 13.3 - patient required intubation for acute respiratory acidosis 03/03. Repeat ABG have improved - ECHO unremarkable - chesT X ray 03/04 shows persistent pulmonary edema. Plan to do another session of dialysis again today #YING- worsened #Hyperkalemia - resolved -creatinine worsening to 3.06 still - repeat dialysis planned for today #Hypernatremia resolved Anemia - Hb 11, stable Code statuS: full code
[2020-03-04] MEDS: Carvedilol 25 MG TAB PO SCH ×2 (15:13→19:54)
[2020-03-04] MEDS: cefTRIAXone\\ROCEPHIN 1 GM in Sodium Chloride 0.9% 100 ML IVPB SCH (15:19)
--- NOTE | 2020-03-04 18:38 | PRG ---
DATE OF SERVICE: 03/04/2020 SUBJECTIVE: The patient was seen and examined in ICU, she remains intubated. OBJECTIVE: GENERAL: This is an obese female, intubated. VITAL SIGNS: Temperature 98.4, pulse is 88, respiratory rate 22, blood pressure 147/69. HEENT: Intubated. CV: S1 and S2 heard. RESPIRATORY: Clear. GI: Abdomen is soft. MUSCULOSKELETAL: 1+ edema. Dermatologic: No skin rash. NEUROLOGIC: Intubated. LABORATORY DATA: Potassium 4.0, BUN is 34, creatinine 3.06. ASSESSMENT AND PLAN: 1. Acute kidney injury on chronic kidney disease, stage 3 with improvement after dialysis, tolerated dialysis well, plan to have another dialysis today. 2. Hypernatremia, better. 3. Hyperkalemia, it was severe and life-threatening yesterday, better. 4. Acidosis. 5. Acute hypoxic respiratory failure. 6. Respiratory acidosis. Overall, labs are better with dialysis, remains fluid overloaded. Plan to have dialysis today. Monitor fluid status. Job ID: [id number]
[2020-03-04] MEDS: Atorvastatin Calcium 40 MG TAB PO SCH (19:54)
[2020-03-05 04:44] LABS: Anion Gap 16 mmol/L (10-20); BUN (Urea Nitrogen) 24 mg/dL (9.8-20.1); Calc. Creatinine Clearance 35 mL/min (70-130); Calcium 7.9 mg/dL (7.8-10.44); Carbon Dioxide 24 mmol/L (23-31); Chloride 103 mmol/L (98-107); Estimated GFR-MDRD 23; Glucose 72 mg/dL (80-115); Potassium 3.7 mmol/L (3.5-5.1); Sodium 139 mmol/L (136-145)
[2020-03-05] MEDS: Levothyroxine Sodium 50 MCG TAB PO SCH ×2 (05:14→05:15)
[2020-03-05 05:41] LABS: Band 14 % (5-11); Hemoglobin 10.2 g/dL (12.0-16.0); Lymphocytes 5 % (21-51); MDiff Complete? YES; Mean Corpuscular HGB CONC 34.1 g/dL (32.0-36.0); Mean Corpuscular Volume 90.8 fL (78.0-98.0); Mean Platelet Volume 8.3 fL (7.4-10.4); Monocytes 2 % (0-10); Neutrophil 79 % (42-75); Platelet Count 143 thou/uL (130-400); RBC Distribution Width 12.4 % (11.5-14.5); Red Blood Cell (RBC) Count 3.31 mill/uL (4.20-5.40); White Blood Cell (WBC) Count 18.8 thou/uL (4.8-10.8)
--- NOTE | 2020-03-05 07:11 | RAD ---
CHEST 1 VIEW: INDICATION: History of intubation. COMPARISON: Prior study dated 03/04/2020. FINDINGS: The patient has been intervally extubated with removal of the gastric catheter. Cardiomegaly with pu lmonary vascular congestion persists. There is worsening airspace opacity seen perihilarly but great er in the right. There is persistent small left and tiny right pleural effusion. No pneumothorax is evident. IMPRESSION: 1. Interval extubation with removal of the gastric catheter. 2. Worsening perihilar opacity suspicious for worsening central edema. Continued followup is recomm ended. POS: HIEN
[2020-03-05] MEDS: Latanoprost 0.005% Ophth Soln 2.5 ml Bottle EA EYE SCH (08:04)
[2020-03-05] MEDS: Piperacillin/Tazobactam 2.25 GM in Sodium Chloride 0.9% 100 ML IVPB SCH ×3 (08:04→23:21)
[2020-03-05] MEDS ORDERED: Heparin 10,000 UNITS/ 10 ML VIAL ONE (10:08)
--- NOTE | 2020-03-05 10:44 | PRG ---
DATE OF SERVICE: 03/05/2020 SUBJECTIVE: Amy Jerez is a morbidly obese female. This morning, she is awake, responsive, but clearly encephalopathic, weak. Last night, she had bouts of apnea, had to be placed on BiPAP as opposed to CPAP. OBJECTIVE: VITAL SIGNS: Temperature 99, pulse 105, saturations are 91 on 4 L, and blood pressure 174/55. CHEST: Decreased breath sounds, bilateral rhonchi. CARDIAC: Normal S1, S2. No gallops. ABDOMEN: No masses. IMPRESSION: Respiratory failure, renal failure, morbid obesity, sleep apnea, cerebrovascular accident. I spoke to patient's brother, Shayne Schulte, telephone number is [phone], who wants everything to be done for his sister including intubation, PEG, trach, etc. Regarding his wishes, will get Palliative Care to talk to the family. One-half hour of critical care time. Job ID: [id number]
[2020-03-05] MEDS: Amlodipine 10 MG TAB PO SCH (11:33)
[2020-03-05] MEDS: Carvedilol 25 MG TAB PO SCH ×2 (11:33→19:07)
[2020-03-05] MEDS: hydrALAZINE 25 MG TAB PO SCH ×2 (11:34→19:07)
[2020-03-05] MEDS: Aspirin 81 mg Enteric Coated Tablet PO SCH (11:34)
[2020-03-05] MEDS: Ezetimibe 10 MG TAB PO SCH (11:34)
[2020-03-05] MEDS ORDERED: hydrALAZINE 20 MG/ML VIAL SLOW IVP PRN (12:18)
[2020-03-05] MEDS: methylPREDNISolone Sod Succ 40 MG VIAL IVP SCH ×3 (12:22→23:21)
--- NOTE | 2020-03-05 14:02 | PQF ---
CLINICAL DOCUMENTATION IMPROVEMENT CLARIFICATION FORM: ICD-10 Updated PLEASE DO AN ADDENDUM TO THE PROGRESS NOTE WITH ANY DOCUMENTATION UPDATES OR ADDITIONS AND CARRY THROUGH TO DC SUMMARY. THANK YOU. DATE: 03/05/2020 ATTN: Dr. Peña Please exercise your independent, professional judgment in responding to the clarification form. Clinical indicators are provided on the bottom of this form for your review Please check appropriate box(s): [ X] Encephalopathy: Type: [ X ] Acute [ ] Subacute [ ] Chronic Etiology: [X ] Metabolic [ ] Toxic [ X] Hypoxic [ ] Septic [ ] Unspecified [ ] Other (please specify) [ ] Other diagnosis [ ] Unable to determine In addition, please specify: Present on Admission (POA): [ ] Yes [ X ] No [ ] Unable to determine For continuity of documentation, please document condition throughout progress notes and discharge summary. Thank You. CLINICAL INDICATORS - SIGNS / SYMPTOMS / LABS / RESULTS AND LOCATION IN EMR 03/03 (Mariana) Subjective: The pt was noted to desaturate overnight and became less responsive. Pt minimally arousable to stimuli. Potassium was 6.7 this morning. A/P: Acute hypoxic resp. failure 2/2 like aspiration pneumonia vs fluid overload Acute respiratory acidosis Hyperkalemia Hypernatremia 03/03 (Kc) She was very encephalopathic, unable to arouse. 03/04 (Mariana) The pt still intubated. She is following commands. RISKS: H&P 03/01: Hx DM 2. A/P: YING. Hypernatremia 03/03 (Kc) Acute on chronic respiratory failure. Renal failure. TREATMENT: 03/03 (Mariana) Albuterol ordered and request for kayexalate rectally. 03/04 (Mariana) A/P: pt required intubation for acute respiratory acidosis 03/03 Thank you, Nuzhat (This form is maintained as a part of the permanent medical record) 2014 [employer]. All Rights Reserved Nuzhat Sen, RN, BSN [email or web address]
--- NOTE | 2020-03-05 14:19 | PDOC.HOSPP ---
- Subjective Encounter Date: 03/05/20 Encounter Time: 09:30 Subjective: The patient was extubated yesterday. She sounds extremely rhonchorous - Objective Vital Signs & Weight: Vital Signs (12 hours) Temp Pulse Resp Pulse Ox 03/05/20 12:00 97.7 F 03/05/20 11:07 95 34 H 93 L 03/05/20 08:09 91 L 03/05/20 08:08 105 H 28 H 91 L 03/05/20 08:00 99.0 F 03/05/20 04:00 98.2 F Weight Admit Weight 220 lb 7.396 oz Weight 225 lb Most Recent Monitor Data Heart Rate from ECG 108 NIBP 133/76 NIBP BP-Mean 95 Respiration from ECG 43 SpO2 96 I&O: 03/04/20 03/05/20 03/06/20 06:59 06:59 06:59 Intake Total 2791 1028.4 Output Total 140 165 40 Balance 2651 863.4 -40 Result Diagrams: 03/05/20 04:03 03/05/20 04:03 Hospitalist ROS - Review of Systems Constitutional: denies: fever, chills Respiratory: denies: cough, dry, shortness of breath - Medication Medications: Active Medications Generic Name Dose Route Start Last Admin Trade Name Freq PRN Reason Stop Dose Admin Acetaminophen 650 mg 03/01/20 21:52 03/02/20 14:13 Tylenol PO 650 mg Q4H PRN Administration Headache/Fever/Mild Pain (1-3) Albuterol/Ipratropium 3 ml 03/04/20 10:30 03/05/20 11:07 Duoneb NEB 3 ml [id number] TRANG Administration Amlodipine Besylate 10 mg 03/05/20 09:00 03/05/20 11:33 Norvasc PO Not Given DAILY TRANG Aspirin 81 mg 03/02/20 09:00 03/05/20 11:34 Ecotrin PO Not Given DAILY TRANG Atorvastatin Calcium 40 mg 03/02/20 21:00 03/04/20 19:54 Lipitor PO Not Given HS TRANG Carvedilol 25 mg 03/04/20 21:00 03/05/20 11:33 Coreg PO Not Given BID TRANG Ezetimibe 10 mg 03/02/20 09:00 03/05/20 11:34 Zetia PO Not Given DAILY TRANG Hydralazine HCl 25 mg 03/04/20 09:00 03/05/20 11:34 Apresoline PO Not Given BID TRANG Hydralazine HCl 10 mg 03/03/20 23:40 03/04/20 15:14 Apresoline PO 10 mg Q6HR PRN Administration Hypertension Hydralazine HCl 20 mg 03/05/20 12:18 03/05/20 12:25 Apresoline SLOW IVP 20 mg Q6H PRN Administration Hypertension Vancomycin HCl 1.25 gm/ Sodium 250 mls @ 166.667 mls/hr 03/03/20 14:00 13:50 Chloride IVPB 250 mls WILLCALL TRANG Administration Sodium Chloride 1,000 mls @ 0 mls/hr 03/03/20 14:30 03/04/20 19:54 Normal Saline 0.9% IV Not Given .Q0M TRANG KVO Piperacillin Sod/Tazobactam 100 mls @ 200 mls/hr 03/05/20 08:00 03/05/20 08: 04 Sod 2.25 gm/ Sodium Chloride IVPB 100 mls 0800,1600,2359 TRANG Administration Latanoprost 1 drop 03/02/20 09:00 03/05/20 08:04 Xalatan 0.005% Ophth Soln EA EYE 1 drop DAILY TRANG Administration Levothyroxine Sodium 50 mcg 03/05/20 06:00 03/05/20 05:15 Synthroid PO Not Given 0600 TRANG Lorazepam 2 mg 03/03/20 14:19 03/03/20 15:24 Ativan SLOW IVP 04/02/20 14:19 2 mg Q1H PRN Administration Breakthrough agitation Methylprednisolone Sodium Succinate 40 mg 03/05/20 12:00 03/05/20 12:22 Solu-Medrol IVP 40 mg Q6HR TRANG Administration Ondansetron HCl 4 mg 03/02/20 11:53 03/02/20 14:14 Zofran Odt PO 4 mg Q8H PRN Administration Nausea/Vomiting Propofol 1,000 mg 03/03/20 14:19 03/04/20 02:58 Diprivan IV 04/02/20 14:19 1,000 mg INF PRN Administration TO ACHIEVE GOAL RASS Protocol Sertraline HCl 25 mg 03/02/20 09:00 03/05/20 11:34 Zoloft PO Not Given DAILY TRANG Sodium Chloride 10 ml 03/03/20 09:00 03/05/20 09:00 Flush - Normal Saline IVF 10 ml Q12HR TRANG Administration - Exam General - other findings: groggy Eye: PERRL, anicteric sclera ENT: normocephalic atraumatic, no oropharyngeal lesions Neck: supple, symmetric, no JVD, no thyromegaly Heart: RRR, no murmur, no gallops, no rubs Respiratory - other findings: diffuse crackles Gastrointestinal: soft, non-tender, non-distended, normal bowel sounds Extremities: no cyanosis, no clubbing Extremities - other findings: 4+ edema Skin: normal turgor, no lesions, no rashes Hosp A/P - Plan Chest Xray: cardiomegaly, left pleural effusion Renal US: chronic kidney disease, no hydronephrosis Chest Xray: worsening pulmonary edema ECHO: EF 60-65%, mild TR, mild MR, mild MO This is a 64 year old female who presented with SOB and respiratory failure #Acute hypoxic respiratory failure secondary to like aspiration pneumonia vs fluid overload #Acute respiratory acidosis - COVID negative. Xray shows cardiomegaly. She was on oral amoxicillin for pneumonia initially. - patient decompensated 03/03, required intubation and was started on IV vanc and ceftriaxone. WBC increased to 18.8. Switch ceftriaxone to zosyn 03/05 - patient is now extubated. Per family discussion, they still want aggressive care - CXR today shows persistent pulmonary edema. ECHO unremarkable. Plan for dialysis today #YING- improved - creatinine down to 2.58 - continue dialysis today #Hypertensive Urgency - BP 180, added IV BP meds prn - plan for dialysis today #Hyperkalemia - resolved #Hypernatremia resolved Anemia - Hb 11, stable Code statuS: full code
--- NOTE | 2020-03-05 15:56 | PRG ---
DATE OF SERVICE: 03/05/2020 SUBJECTIVE: Patient was seen and examined at bedside and overnight events noted. Patient denies any shortness of breath or chest pain or palpitation. No history of nausea or vomiting or diarrhea or fever or chills or cramps. OBJECTIVE: GENERAL: This is an obese female, in no apparent distress. VITAL SIGNS: Temperature 97.7, pulse 94, respiratory rate , and blood pressure 117/54. HEENT: Atraumatic, normocephalic. Oral mucosa is moist. NECK: Supple. CARDIOVASCULAR: S1, S2 heard. Rate and rhythm regular. RESPIRATORY: Clear to auscultation. GASTROINTESTINAL: Abdomen is soft. MUSCULOSKELETAL: No tenderness. No edema. DERMATOLOGIC: No skin rash. NEUROLOGIC: Alert and awake and oriented x3. No focal neurologic deficits. Moving all the extremities. PSYCHIATRIC: Mood and affect normal. LABORATORY DATA: Potassium is 3.7, BUN is 24, creatinine is 2.5. ASSESSMENT AND PLAN: 1. Acute kidney injury on chronic kidney disease, stage 3, dialysis dependent. Had good clearance yesterday, but she remains fluid overloaded today and plan is to have ultrafiltration only today. We will have dialysis for 3 hours, attempt to remove 3 L of if tolerated. Her blood pressure is stable. She is looking puffy and crackles present. 2. Hypernatremia, better. 3. Hyperkalemia, better. 4. Acidosis, stable. 5. Acute hypoxic respiratory failure. 6. Respiratory acidosis. Overall, labs are better. Monitor urine output. Avoid nephrotoxins, and we will have another session of dialysis for fluid removal as tolerated. Job ID: [id number]
[2020-03-05 18:46] LABS: Vancomycin, Random 12.3 ug/mL (See Comment)
[2020-03-05] MEDS: Atorvastatin Calcium 40 MG TAB PO SCH (19:07)
[2020-03-05] MEDS: Sodium Chloride 0.9% 1,000 ML IV SCH (19:07)
[2020-03-06 05:09] LABS: Band 11 % (5-11); Eosinophils 1 % (0-10); Hemoglobin 9.3 g/dL (12.0-16.0); Lymphocytes 4 % (21-51); MDiff Complete? YES; Mean Corpuscular HGB CONC 32.2 g/dL (32.0-36.0); Mean Corpuscular Hemoglobin 29.6 pg (27.0-31.0); Mean Platelet Volume 8.8 fL (7.4-10.4); Neutrophil 84 % (42-75); Platelet Count 156 thou/uL (130-400); Platelet Morphology Comment Appears Adequate; RBC Distribution Width 12.7 % (11.5-14.5); Red Blood Cell (RBC) Count 3.15 mill/uL (4.20-5.40); White Blood Cell (WBC) Count 17.1 thou/uL (4.8-10.8)
[2020-03-06 05:19] LABS: Anion Gap 20 mmol/L (10-20); BUN (Urea Nitrogen) 39 mg/dL (9.8-20.1); Calc. Creatinine Clearance 23 mL/min (70-130); Calcium 8.2 mg/dL (7.8-10.44); Carbon Dioxide 20 mmol/L (23-31); Chloride 104 mmol/L (98-107); Estimated GFR-MDRD 14; Glucose 108 mg/dL (80-115); Potassium 4.1 mmol/L (3.5-5.1); Sodium 140 mmol/L (136-145)
[2020-03-06] MEDS: Levothyroxine Sodium 50 MCG TAB PO SCH ×2 (05:31→10:24)
[2020-03-06] MEDS: methylPREDNISolone Sod Succ 40 MG VIAL IVP SCH ×3 (05:31→20:18)
[2020-03-06] MEDS: Sodium Chloride 0.9% 1,000 ML IV SCH ×2 (05:31→20:18)
--- NOTE | 2020-03-06 07:46 | EKG ---
Test Reason : Blood Pressure : / mmHG Vent. Rate : 074 BPM Atrial Rate : 074 BPM P-R Int : 156 ms QRS Dur : 092 ms QT Int : 430 ms P-R-T Axes : 058 012 041 degrees QTc Int : 477 ms Normal sinus rhythm Normal ECG When compared with ECG of 01-MAR-2020 17:22, (Unconfirmed) QT has lengthened Confirmed by DR. Padmini COYLE ([id number]) on 03/06/2020 7:45:56 AM Referred By: JERSEY Confirmed By:DR. Padmini COYLE
--- NOTE | 2020-03-06 07:53 | RAD ---
EXAM: Single view of the chest HISTORY: Ventilated patient with respiratory failure. COMPARISON: 03/05/2020 FINDINGS: Single view of the chest shows an enlarged but stable cardiomediastinal silhouette. Multifo franklin areas of airspace opacity is seen in the right lung. The left hemidiaphragm cannot be visualized which may be secondary to patient's large heart or a left pleural effusion. The bones are unremarkable. IMPRESSION: Stable exam
[2020-03-06] MEDS: Piperacillin/Tazobactam 2.25 GM in Sodium Chloride 0.9% 100 ML IVPB SCH ×2 (07:58→15:26)
[2020-03-06 08:28] LABS: Base Excess (BEa) -5.1 mEq/L (-2.0 to +3.0); CO2 Tension 43.3 mmHg (35.0-45.0); Calcium, Ionized (arterial) 1.15 mmol/L (1.12-1.30); Carboxyhemoglobin (COHb) 0.7 gm% (0.0-3.0); Hemoglobin (Hb) 10.4 g/dL (12.0-16.0); O2 Tension (PaO2), arterial 68.7 mmHg (> 80.0); Potassium - ABG Lab 4.31 mmol/L (3.70-5.30); Puncture Site RB
[2020-03-06 08:29] LABS: ALV-art Gradient 105.335 (0-20)
[2020-03-06] MEDS ORDERED: Heparin 10,000 UNITS/ 10 ML VIAL ONE (10:12)
[2020-03-06] MEDS: Amlodipine 10 MG TAB PO SCH (10:23)
[2020-03-06] MEDS: hydrALAZINE 25 MG TAB PO SCH ×2 (10:24→20:23)
[2020-03-06] MEDS: Carvedilol 25 MG TAB PO SCH ×2 (10:24→20:23)
[2020-03-06] MEDS ORDERED: Aspirin Chewable 81 MG TAB PO SCH (10:30)
[2020-03-06] MEDS: Latanoprost 0.005% Ophth Soln 2.5 ml Bottle EA EYE SCH (10:34)
[2020-03-06] MEDS ORDERED: Sodium Chloride 0.9% (PF) 10 ML VIAL FS PRN (10:55)
--- NOTE | 2020-03-06 12:33 | PRG ---
DATE OF SERVICE: 03/06/2020 SUBJECTIVE: Patient was seen and examined at bedside and overnight events noted. Patient denies any shortness of breath or chest pain or palpitation. No history of nausea or vomiting or diarrhea or fever or chills or cramps. OBJECTIVE: GENERAL: This is an obese female, in no apparent distress. VITAL SIGNS: Temperature 98.1. Pulse 105. Respiratory rate 18. Blood pressure 169/81. HEENT: Atraumatic, normocephalic. Oral mucosa is moist. NECK: Supple. CARDIOVASCULAR: S1, S2 heard. Rate and rhythm regular. RESPIRATORY: Clear to auscultation. GASTROINTESTINAL: Abdomen is soft. MUSCULOSKELETAL: No tenderness. No edema. DERMATOLOGIC: No skin rash. NEUROLOGIC: Alert and awake and oriented x3. No focal neurologic deficits. Moving all the extremities. PSYCHIATRIC: Mood and affect normal. LABORATORY DATA: Potassium 4.1, BUN is 39, and creatinine is 3.9. ASSESSMENT AND PLAN: 1. Acute kidney injury on chronic kidney stage 3, dialysis dependent. We will have dialysis today with cleaning for 3 hours as tolerated. 2. Fluid overload, seems to be better. 3. Hypernatremia. 4. Hyperkalemia. 5. Acute hypoxic respiratory failure. 6. Respiratory distress. 7. The patient is looking much better clinically and we will continue to follow. Job ID: [id number]
--- NOTE | 2020-03-06 14:33 | PRG ---
DATE OF SERVICE: 03/06/2020 SUBJECTIVE: This morning, she is much more awake, responsive to my surprise. She is answering appropriately, nodding. OBJECTIVE: VITAL SIGNS: Saturations on 3 L are 95%, pulse 103, respiratory rate , blood pressure 142/65. CHEST: Decreased breath sounds, no wheezing. CARDIAC: Normal S1, S2. ABDOMEN: No masses. LABORATORY DATA: White count 51261, H and H are 9 and 23, platelet count 156. BUN and creatinine are elevated. All cultures are negative. ASSESSMENT: Respiratory failure, superimposed fluid overload, acute renal failure. Abnormal x-ray, probably nonspecific infiltrates, pleural effusion. PLAN: Continue aggressive dialysis. Continue nocturnal BiPAP, transfer out of the ICU. PT, supportive care. One-half hour of critical care time. Job ID: [id number]
[2020-03-06] MEDS: Aspirin 81 mg Enteric Coated Tablet PO SCH (15:14)
[2020-03-06] MEDS: Ezetimibe 10 MG TAB PO SCH (15:14)
--- NOTE | 2020-03-06 17:39 | PDOC.HOSPP ---
- Objective Vital Signs & Weight: Vital Signs (12 hours) Temp Pulse Resp BP Pulse Ox 03/06/20 15:10 98.2 F 03/06/20 14:39 93 24 H 99 03/06/20 11:00 99.5 F 03/06/20 10:55 108 H 20 97 03/06/20 10:24 108 H 169/81 H 03/06/20 10:23 108 H 168/81 H 03/06/20 08:00 96 03/06/20 07:38 107 H 24 H 95 03/06/20 07:34 95 03/06/20 07:00 98.1 F Weight Admit Weight 220 lb 7.396 oz Weight 225 lb Most Recent Monitor Data Heart Rate from ECG 86 NIBP 130/58 NIBP BP-Mean 82 Respiration from ECG 30 SpO2 97 I&O: 03/05/20 03/06/20 03/07/20 06:59 06:59 06:59 Intake Total 1028.4 746 145 Output Total 165 116 40 Balance 863.4 630 105 Result Diagrams: 03/06/20 03:53 03/06/20 03:53 Additional Labs: Accuchecks 03/06/20 03/05/20 03/05/20 16:51 20:51 17:32 POC Glucose 134 H 115 H 81 03/05/20 03/04/20 03/04/20 12:12 20:42 17:45 POC Glucose 76 111 H 95 03/04/20 03/04/20 03/03/20 11:29 06:20 21:46 POC Glucose 83 76 79 Hospitalist ROS - Medication Medications: Active Medications Generic Name Dose Route Start Last Admin Trade Name Freq PRN Reason Stop Dose Admin Acetaminophen 650 mg 03/01/20 21:52 03/02/20 14:13 Tylenol PO 650 mg Q4H PRN Administration Headache/Fever/Mild Pain (1-3) Albuterol/Ipratropium 3 ml 03/04/20 10:30 03/06/20 14:39 Duoneb NEB 3 ml [id number] TRANG Administration Amlodipine Besylate 10 mg 03/05/20 09:00 03/06/20 10:23 Norvasc PO 10 mg DAILY TRANG Administration Atorvastatin Calcium 40 mg 03/02/20 21:00 03/05/20 19:07 Lipitor PO Not Given HS TRANG Carvedilol 25 mg 03/04/20 21:00 03/06/20 10:24 Coreg PO 25 mg BID TRANG Administration Ezetimibe 10 mg 03/02/20 09:00 03/06/20 15:14 Zetia PO Not Given DAILY TRANG Hydralazine HCl 25 mg 03/04/20 09:00 03/06/20 10:24 Apresoline PO 25 mg BID TRANG Administration Hydralazine HCl 10 mg 03/03/20 23:40 03/04/20 15:14 Apresoline PO 10 mg Q6HR PRN Administration Hypertension Hydralazine HCl 20 mg 03/05/20 12:18 03/05/20 12:25 Apresoline SLOW IVP 20 mg Q6H PRN Administration Hypertension Sodium Chloride 1,000 mls @ 0 mls/hr 03/03/20 14:30 03/06/20 05:31 Normal Saline 0.9% IV Not Given .Q0M TRANG KVO Piperacillin Sod/Tazobactam 100 mls @ 200 mls/hr 03/05/20 08:00 03/06/20 15: 26 Sod 2.25 gm/ Sodium Chloride IVPB 100 mls 0800,1600,2359 TRANG Administration Latanoprost 1 drop 03/02/20 09:00 03/06/20 10:34 Xalatan 0.005% Ophth Soln EA EYE 1 drop DAILY TRANG Administration Levothyroxine Sodium 50 mcg 03/05/20 06:00 03/06/20 10:24 Synthroid PO 50 mcg 0600 TRANG Administration Methylprednisolone Sodium Succinate 40 mg 03/06/20 09:00 03/06/20 10:30 Solu-Medrol IVP 40 mg BID TRANG Administration Ondansetron HCl 4 mg 03/02/20 11:53 03/02/20 14:14 Zofran Odt PO 4 mg Q8H PRN Administration Nausea/Vomiting Sertraline HCl 25 mg 03/02/20 09:00 03/06/20 10:24 Zoloft PO 25 mg DAILY TRANG Administration Sodium Chloride 10 ml 03/03/20 09:00 03/06/20 10:31 Flush - Normal Saline IVF 10 ml Q12HR TRANG Administration - Exam General Appearance: NAD, awake alert Eye: PERRL, anicteric sclera ENT: normocephalic atraumatic, no oropharyngeal lesions Neck: supple, symmetric, no JVD, no thyromegaly Hosp A/P - Plan Chest Xray: cardiomegaly, left pleural effusion Renal US: chronic kidney disease, no hydronephrosis Chest Xray: worsening pulmonary edema ECHO: EF 60-65%, mild TR, mild MR, mild AL This is a 64 year old female who presented with SOB and respiratory failure #Acute hypoxic respiratory failure secondary to like aspiration pneumonia vs fluid overload #Acute respiratory acidosis - COVID negative. Xray shows cardiomegaly. She was on oral amoxicillin for pneumonia initially. - patient decompensated 03/03, required intubation and was started on IV vanc and ceftriaxone. WBC increased to 18.8. Switch ceftriaxone to zosyn 03/05 - patient is now extubated. Per family discussion, they still want aggressive care - CXR today shows persistent pulmonary edema. ECHO unremarkable. Plan for dialysis today #YING- improved - creatinine down to 2.58 - continue dialysis today #Hypertensive Urgency - BP 180, added IV BP meds prn - plan for dialysis today #Hyperkalemia - resolved #Hypernatremia resolved Anemia - Hb 11, stable Code statuS: full code
--- NOTE | 2020-03-06 17:45 | PDOC.HOSPP ---
- Subjective Encounter Date: 03/06/20 Encounter Time: 11:00 Subjective: The patient was extubated today. She denies significant chest pain or shortness of breath. Patient failed swallow eval today. The patient states before coming to the hospital she was eating solid food. She does not have dentures. She denies prior problems with swallowing. - Objective Vital Signs & Weight: Vital Signs (12 hours) Temp Pulse Resp BP Pulse Ox 03/06/20 15:10 98.2 F 03/06/20 14:39 93 24 H 99 03/06/20 11:00 99.5 F 03/06/20 10:55 108 H 20 97 03/06/20 10:24 108 H 169/81 H 03/06/20 10:23 108 H 168/81 H 03/06/20 08:00 96 03/06/20 07:38 107 H 24 H 95 03/06/20 07:34 95 03/06/20 07:00 98.1 F Weight Admit Weight 220 lb 7.396 oz Weight 225 lb Most Recent Monitor Data Heart Rate from ECG 86 NIBP 130/58 NIBP BP-Mean 82 Respiration from ECG 30 SpO2 97 I&O: 03/05/20 03/06/20 03/07/20 06:59 06:59 06:59 Intake Total 1028.4 746 145 Output Total 165 116 40 Balance 863.4 630 105 Result Diagrams: 03/06/20 03:53 03/06/20 03:53 Additional Labs: Accuchecks 03/06/20 03/05/20 03/05/20 16:51 20:51 17:32 POC Glucose 134 H 115 H 81 03/05/20 03/04/20 03/04/20 12:12 20:42 17:45 POC Glucose 76 111 H 95 03/04/20 03/04/20 03/03/20 11:29 06:20 21:46 POC Glucose 83 76 79 Hospitalist ROS - Review of Systems Constitutional: denies: fever, chills - Medication Medications: Active Medications Generic Name Dose Route Start Last Admin Trade Name Freq PRN Reason Stop Dose Admin Acetaminophen 650 mg 03/01/20 21:52 03/02/20 14:13 Tylenol PO 650 mg Q4H PRN Administration Headache/Fever/Mild Pain (1-3) Albuterol/Ipratropium 3 ml 03/04/20 10:30 03/06/20 14:39 Duoneb NEB 3 ml [id number] TRANG Administration Amlodipine Besylate 10 mg 03/05/20 09:00 03/06/20 10:23 Norvasc PO 10 mg DAILY TRANG Administration Atorvastatin Calcium 40 mg 03/02/20 21:00 03/05/20 19:07 Lipitor PO Not Given HS TRANG Carvedilol 25 mg 03/04/20 21:00 03/06/20 10:24 Coreg PO 25 mg BID TRANG Administration Ezetimibe 10 mg 03/02/20 09:00 03/06/20 15:14 Zetia PO Not Given DAILY TRANG Hydralazine HCl 25 mg 03/04/20 09:00 03/06/20 10:24 Apresoline PO 25 mg BID TRANG Administration Hydralazine HCl 10 mg 03/03/20 23:40 03/04/20 15:14 Apresoline PO 10 mg Q6HR PRN Administration Hypertension Hydralazine HCl 20 mg 03/05/20 12:18 03/05/20 12:25 Apresoline SLOW IVP 20 mg Q6H PRN Administration Hypertension Sodium Chloride 1,000 mls @ 0 mls/hr 03/03/20 14:30 03/06/20 05:31 Normal Saline 0.9% IV Not Given .Q0M TRANG KVO Piperacillin Sod/Tazobactam 100 mls @ 200 mls/hr 03/05/20 08:00 03/06/20 15: 26 Sod 2.25 gm/ Sodium Chloride IVPB 100 mls 0800,1600,2359 TRANG Administration Latanoprost 1 drop 03/02/20 09:00 03/06/20 10:34 Xalatan 0.005% Ophth Soln EA EYE 1 drop DAILY TRANG Administration Levothyroxine Sodium 50 mcg 03/05/20 06:00 03/06/20 10:24 Synthroid PO 50 mcg 0600 TRANG Administration Methylprednisolone Sodium Succinate 40 mg 03/06/20 09:00 03/06/20 10:30 Solu-Medrol IVP 40 mg BID TRANG Administration Ondansetron HCl 4 mg 03/02/20 11:53 03/02/20 14:14 Zofran Odt PO 4 mg Q8H PRN Administration Nausea/Vomiting Sertraline HCl 25 mg 03/02/20 09:00 03/06/20 10:24 Zoloft PO 25 mg DAILY TRANG Administration Sodium Chloride 10 ml 03/03/20 09:00 03/06/20 10:31 Flush - Normal Saline IVF 10 ml Q12HR TRANG Administration - Exam General Appearance: NAD, awake alert Eye: PERRL, anicteric sclera ENT: normocephalic atraumatic, no oropharyngeal lesions Neck: supple, no JVD Heart: RRR, no murmur, no gallops, no rubs Respiratory: CTAB, no wheezes, no rales, no ronchi Gastrointestinal: soft, non-tender, non-distended, normal bowel sounds Extremities: no cyanosis, no clubbing, no edema Skin: normal turgor, no lesions, no rashes Neurological: cranial nerve grossly intact, normal sensation to touch, no focal deficits, no new deficit Musculoskeletal: normal tone, normal strength, no muscle wasting Hosp A/P - Plan Chest Xray: cardiomegaly, left pleural effusion Renal US: chronic kidney disease, no hydronephrosis Chest Xray: worsening pulmonary edema ECHO: EF 60-65%, mild TR, mild MR, mild HI This is a 64 year old female who presented with SOB and respiratory failure #Acute hypoxic respiratory failure secondary to like aspiration pneumonia vs fluid overload #Acute respiratory acidosis - COVID negative. Xray shows cardiomegaly. She was on oral amoxicillin for pneumonia initially. - patient decompensated 03/03, required intubation and was started on IV vanc and ceftriaxone. IV vanc discontinued. Ceftriaxone switched to zosyn 03/05. WBC decreasing to 17, continue - patient is now extubated. Patient transferred to IMCU today #YING- improved - creatinine 3.91 - nephrology following #Hypertensive Urgency - BP 180, added IV BP meds prn - plan for dialysis today #Hyperkalemia - resolved #Hypernatremia resolved Anemia - Hb 11, stable Code statuS: full code
[2020-03-06] MEDS: Pantoprazole 40 MG VIAL IVP SCH (20:18)
[2020-03-06] MEDS: Atorvastatin Calcium 40 MG TAB PO SCH (20:23)
[2020-03-06] MEDS ORDERED: Morphine 2 MG/ML SYRINGE SLOW IVP SCH (22:15)
[2020-03-07] MEDS: Piperacillin/Tazobactam 2.25 GM in Sodium Chloride 0.9% 100 ML IVPB SCH ×3 (00:24→16:08)
[2020-03-07] MEDS: Levothyroxine Sodium 50 MCG TAB PO SCH (05:32)
[2020-03-07] MEDS: Sodium Chloride 0.9% 1,000 ML IV SCH ×3 (05:32→21:08)
[2020-03-07] MEDS: Latanoprost 0.005% Ophth Soln 2.5 ml Bottle EA EYE SCH (09:35)
[2020-03-07] MEDS: hydrALAZINE 25 MG TAB PO SCH ×2 (09:37→20:42)
[2020-03-07] MEDS: Ezetimibe 10 MG TAB PO SCH (09:38)
[2020-03-07] MEDS: Carvedilol 25 MG TAB PO SCH ×2 (09:38→20:42)
[2020-03-07] MEDS: Aspirin Chewable 81 MG TAB PO SCH (09:38)
[2020-03-07] MEDS: Amlodipine 10 MG TAB PO SCH (09:38)
[2020-03-07] MEDS: methylPREDNISolone Sod Succ 40 MG VIAL IVP SCH ×2 (09:39→20:47)
[2020-03-07 11:51] LABS: Hemoglobin 8.8 g/dL (12.0-16.0); Mean Corpuscular HGB CONC 31.8 g/dL (32.0-36.0); Mean Corpuscular Hemoglobin 29.5 pg (27.0-31.0); Mean Corpuscular Volume 92.6 fL (78.0-98.0); Mean Platelet Volume 7.9 fL (7.4-10.4); Platelet Count 174 thou/uL (130-400); RBC Distribution Width 12.3 % (11.5-14.5); Red Blood Cell (RBC) Count 2.98 mill/uL (4.20-5.40); White Blood Cell (WBC) Count 12.4 thou/uL (4.8-10.8)
[2020-03-07 12:10] LABS: Anion Gap 16 mmol/L (10-20); BUN (Urea Nitrogen) 36 mg/dL (9.8-20.1); Calc. Creatinine Clearance 25 mL/min (70-130); Calcium 7.9 mg/dL (7.8-10.44); Carbon Dioxide 26 mmol/L (23-31); Chloride 101 mmol/L (98-107); Estimated GFR-MDRD 15; Glucose 146 mg/dL (80-115); Potassium 3.8 mmol/L (3.5-5.1); Sodium 139 mmol/L (136-145)
--- NOTE | 2020-03-07 12:31 | PRG ---
DATE OF SERVICE: 03/07/2020 SUBJECTIVE: Patient was seen and examined at bedside and overnight events noted. Patient denies any shortness of breath or chest pain or palpitation. No history of nausea or vomiting or diarrhea or fever or chills or cramps. OBJECTIVE: GENERAL: This is a well-built female, in no apparent distress. VITAL SIGNS: Temperature 98.6. Heart Rate 74. Respiratory rate 20. Blood pressure 107/49. HEENT: Atraumatic, normocephalic. Oral mucosa is moist. NECK: Supple. CARDIOVASCULAR: S1, S2 heard. Rate and rhythm regular. RESPIRATORY: Clear to auscultation. GASTROINTESTINAL: Abdomen is soft. MUSCULOSKELETAL: No tenderness. No edema. DERMATOLOGIC: No skin rash. NEUROLOGIC: Alert and awake and oriented x3. No focal neurologic deficits. Moving all the extremities. PSYCHIATRIC: Mood and affect normal. LABORATORY DATA: Not done today. ASSESSMENT AND PLAN: 1. Acute kidney injury on chronic kidney disease stage 3, dialysis dependent. We will monitor. No dialysis today. 2. Fluid overload, better. 3. Hyperkalemia. 4. Respiratory distress. Overall, no indication for dialysis today. We will continue to monitor. Job ID: [id number]
[2020-03-07 12:57] VITALS: BMI 33.0
--- NOTE | 2020-03-07 14:35 | PDOC.HOSPP ---
- Subjective Encounter Date: 03/07/20 Encounter Time: 10:00 Subjective: The patient is doing well, no chest pain or SOB. Speech has upgraded her diet today. I spoke with patient's brother who had questions about whether patient needs dialysis long-term, stated unsure yet - Objective Vital Signs & Weight: Vital Signs (12 hours) Temp Pulse Resp BP Pulse Ox 03/07/20 11:24 98.6 F 03/07/20 11:07 74 20 98 03/07/20 09:38 87 110/44 L 03/07/20 09:37 92 110/44 L 03/07/20 07:51 100 03/07/20 07:41 79 23 H 100 03/07/20 07:18 98.3 F 03/07/20 03:37 97.8 F Weight Admit Weight 220 lb 7.396 oz Weight 223 lb 5.252 oz Most Recent Monitor Data Heart Rate from ECG 67 NIBP 118/50 NIBP BP-Mean 72 Respiration from ECG 22 SpO2 100 I&O: 03/06/20 03/07/20 03/08/20 06:59 06:59 06:59 Intake Total 746 360 Output Total 116 2615 Balance 630 -2255 Result Diagrams: 03/07/20 11:40 03/07/20 11:40 Additional Labs: Accuchecks 03/07/20 03/07/20 03/06/20 10:39 05:28 20:26 POC Glucose 156 H 127 H 91 03/06/20 16:51 POC Glucose 134 H Hospitalist ROS - Review of Systems Constitutional: denies: fever, chills - Medication Medications: Active Medications Generic Name Dose Route Start Last Admin Trade Name Freq PRN Reason Stop Dose Admin Acetaminophen 650 mg 03/01/20 21:52 03/02/20 14:13 Tylenol PO 650 mg Q4H PRN Administration Headache/Fever/Mild Pain (1-3) Albuterol/Ipratropium 3 ml 03/04/20 10:30 03/07/20 11:07 Duoneb NEB 3 ml [id number] TRANG Administration Amlodipine Besylate 10 mg 03/05/20 09:00 03/07/20 09:38 Norvasc PO 10 mg DAILY TRANG Administration Aspirin 81 mg 03/07/20 09:00 03/07/20 09:38 Aspirin Chewable PO 81 mg DAILY TRANG Administration Atorvastatin Calcium 40 mg 03/02/20 21:00 03/06/20 20:23 Lipitor PO Not Given HS [facility] Carvedilol 25 mg 03/04/20 21:00 03/07/20 09:38 Coreg PO 25 mg BID TRANG Administration Ezetimibe 10 mg 03/02/20 09:00 03/07/20 09:38 Zetia PO 10 mg DAILY TRANG Administration Hydralazine HCl 25 mg 03/04/20 09:00 03/07/20 09:37 Apresoline PO 25 mg BID TRANG Administration Hydralazine HCl 10 mg 03/03/20 23:40 03/04/20 15:14 Apresoline PO 10 mg Q6HR PRN Administration Hypertension Hydralazine HCl 20 mg 03/05/20 12:18 03/05/20 12:25 Apresoline SLOW IVP 20 mg Q6H PRN Administration Hypertension Sodium Chloride 1,000 mls @ 0 mls/hr 03/03/20 14:30 03/07/20 11:59 Normal Saline 0.9% IV 1,000 mls .Q0M TRANG Administration KVO Piperacillin Sod/Tazobactam 100 mls @ 200 mls/hr 03/05/20 08:00 03/07/20 09: 36 Sod 2.25 gm/ Sodium Chloride IVPB 100 mls 0800,1600,2359 TRANG Administration Latanoprost 1 drop 03/02/20 09:00 03/07/20 09:35 Xalatan 0.005% Ophth Soln EA EYE 1 drop DAILY TRANG Administration Levothyroxine Sodium 50 mcg 03/05/20 06:00 03/07/20 05:32 Synthroid PO Not Given 0600 [facility] Methylprednisolone Sodium Succinate 40 mg 03/06/20 09:00 03/07/20 09:39 Solu-Medrol IVP 40 mg BID TRANG Administration Ondansetron HCl 4 mg 03/02/20 11:53 03/02/20 14:14 Zofran Odt PO 4 mg Q8H PRN Administration Nausea/Vomiting Pantoprazole Sodium 40 mg 03/06/20 21:00 03/06/20 20:18 Protonix IVP 40 mg 2100 TRANG Administration Sertraline HCl 25 mg 03/02/20 09:00 03/07/20 09:39 Zoloft PO 25 mg DAILY TRANG Administration Sodium Chloride 10 ml 03/03/20 09:00 03/07/20 09:39 Flush - Normal Saline IVF 10 ml Q12HR TRANG Administration - Exam General Appearance: NAD, awake alert Eye: PERRL, anicteric sclera ENT: normocephalic atraumatic, no oropharyngeal lesions Neck: no JVD Heart: RRR, no murmur, no gallops, no rubs Respiratory: CTAB, no wheezes, no rales, no ronchi Gastrointestinal: soft, non-tender, non-distended, normal bowel sounds Extremities: no cyanosis, no clubbing, 1+ LE edema Skin: normal turgor, no lesions, no rashes Neurological: cranial nerve grossly intact, normal sensation to touch, no focal deficits, no new deficit Hosp A/P - Plan Chest Xray: cardiomegaly, left pleural effusion Renal US: chronic kidney disease, no hydronephrosis Chest Xray: worsening pulmonary edema ECHO: EF 60-65%, mild TR, mild MR, mild NC This is a 64 year old female who presented with SOB and respiratory failure #Acute hypoxic respiratory failure secondary to like aspiration pneumonia vs fluid overload #Acute respiratory acidosis - possibly from COPD vs obesity hypoventilation - COVID negative. Xray shows cardiomegaly. She was on oral amoxicillin for pneumonia initially. Patient decompensated 03/03, required intubation and was started on IV vanc and ceftriaxone. IV vanc discontinued. Ceftriaxone switched to zosyn 03/05. She is extubated now. - 03/07: continue zosyn. WBC is improving to 12.1. Consider switching to oral abx tomorrow. Transfer to medical floor. - continue IV steroids 40 mg po bid - continue BIPAP 16/6 qhs #YING- improved - creatinine 3.66, nephrology following - patient did require dialysis when intubated #Anemia - Hb 8.8, stable #Hypertension - continue hydralazine 25 mg po bid - coreg 25 mg po bid #Hyperkalemia - resolved #Hypernatremia resolved Dispo: transfer to medical floor Code statuS: full code
--- NOTE | 2020-03-07 17:54 | ULT ---
EXAM: US Pelvic Limited DATE: 03/07/2020 3:34 PM INDICATION: Vaginal bleeding COMPARISON: CT of the pelvis dated 06/24/2016 FINDING: Transabdominal examination was performed only. The patient declined a transvaginal exam. Overlying bowel gas heavily limits image detail. There is a large fibroid uterus measuring 11.4 x 7.7 x 8.5 cm. Endometrium is not seen. The ovaries were not seen. No definite free fluid is evident. IMPRESSION:Limited exam. Fibroid uterus.
[2020-03-07] MEDS: Atorvastatin Calcium 40 MG TAB PO SCH (20:43)
[2020-03-07] MEDS: Pantoprazole 40 MG VIAL IVP SCH (20:43)
[2020-03-08] MEDS: Piperacillin/Tazobactam 2.25 GM in Sodium Chloride 0.9% 100 ML IVPB SCH ×2 (00:20→08:36)
[2020-03-08 05:34] LABS: Hemoglobin 9.2 g/dL (12.0-16.0); Mean Corpuscular HGB CONC 33.6 g/dL (32.0-36.0); Mean Corpuscular Hemoglobin 30.4 pg (27.0-31.0); Mean Corpuscular Volume 90.6 fL (78.0-98.0); Mean Platelet Volume 7.7 fL (7.4-10.4); Platelet Count 146 thou/uL (130-400); RBC Distribution Width 12.1 % (11.5-14.5); Red Blood Cell (RBC) Count 3.02 mill/uL (4.20-5.40); White Blood Cell (WBC) Count 9.8 thou/uL (4.8-10.8)
[2020-03-08 05:48] LABS: Anion Gap 15 mmol/L (10-20); BUN (Urea Nitrogen) 58 mg/dL (9.8-20.1); Calc. Creatinine Clearance 18 mL/min (70-130); Calcium 7.8 mg/dL (7.8-10.44); Carbon Dioxide 25 mmol/L (23-31); Chloride 105 mmol/L (98-107); Estimated GFR-MDRD 10; Glucose 164 mg/dL (80-115); Potassium 3.7 mmol/L (3.5-5.1); Sodium 141 mmol/L (136-145)
[2020-03-08] MEDS: Levothyroxine Sodium 50 MCG TAB PO SCH (06:08)
[2020-03-08] MEDS: hydrALAZINE 25 MG TAB PO SCH ×2 (08:37→20:39)
[2020-03-08] MEDS: Sodium Chloride 0.9% 1,000 ML IV SCH ×2 (08:37→17:58)
[2020-03-08] MEDS: Carvedilol 25 MG TAB PO SCH ×2 (08:38→20:38)
[2020-03-08] MEDS: Acetaminophen 325 MG TAB PO PRN ×2 (08:38→15:37)
[2020-03-08] MEDS: Ezetimibe 10 MG TAB PO SCH (08:38)
[2020-03-08] MEDS: Aspirin Chewable 81 MG TAB PO SCH (08:38)
[2020-03-08] MEDS: Amlodipine 10 MG TAB PO SCH (08:38)
[2020-03-08] MEDS: methylPREDNISolone Sod Succ 40 MG VIAL IVP SCH (08:39)
[2020-03-08] MEDS: Latanoprost 0.005% Ophth Soln 2.5 ml Bottle EA EYE SCH (08:39)
[2020-03-08] MEDS ORDERED: Heparin 10,000 UNITS/ 10 ML VIAL ONE (09:49)
[2020-03-08] MEDS ORDERED: Tuberculin PPD 0.1 ML VIAL I-DERMAL SCH (13:00)
--- NOTE | 2020-03-08 13:03 | PRG ---
DATE OF SERVICE: 03/08/2020 SUBJECTIVE: Patient was seen and examined at bedside and overnight events noted. Patient denies any shortness of breath or chest pain or palpitation. No history of nausea or vomiting or diarrhea or fever or chills or cramps. OBJECTIVE: GENERAL: This is an obese female, in no apparent distress, seen today in dialysis. VITAL SIGNS: Temperature 99.0. Heart rate 64. Respiratory rate 18. Blood pressure 121/63. HEENT: Atraumatic, normocephalic. Oral mucosa is moist NECK: Supple. CARDIOVASCULAR: S1, S2 heard. Rate and rhythm regular. RESPIRATORY: Clear to auscultation. GASTROINTESTINAL: Abdomen is soft. MUSCULOSKELETAL: No tenderness. No edema. DERMATOLOGIC: No skin rash. NEUROLOGIC: Alert and awake and oriented X3. No focal neurologic deficits. Moving all the extremities. PSYCHIATRIC: Mood and affect normal. LABORATORY DATA: Potassium 3.7, BUN is 58, and creatinine is 5.02. ASSESSMENT AND PLAN: 1. Acute kidney injury on chronic kidney disease, stage 3, dialysis dependent. We will monitor. Remains dialysis dependent. Had dialysis today and tolerated well. 2. Fluid overload. 3. Hyperkalemia. 4. Respiratory distress. 5. History of hypertension. 6. Anemia of chronic disease. We will continue on dialysis as tolerated. Case Management consult for outpatient dialysis placement. We will follow. Job ID: [id number]
--- NOTE | 2020-03-08 15:11 | PDOC.HOSPP ---
- Subjective Encounter Date: 03/08/20 (f/u resp failure) Encounter Time: 15:10 Subjective: Pt is now on HD8 - admitted for respiratory failure. She has been on antibiotics, steroids, and was intubated -04 March. She is also receiving dialysis per Nephrology. Pt is c/o right hand pain and left leg pain. She did receive dialysis today. She denies any n/v/abd pain/dyspnea or other concerns. - Objective Vital Signs & Weight: Vital Signs (12 hours) Temp Pulse Resp BP BP Pulse Ox 03/08/20 08:38 64 121/63 03/08/20 08:37 64 121/63 03/08/20 08:00 100 03/08/20 07:37 98.0 F 64 22 H 121/63 100 03/08/20 07:32 73 18 03/08/20 04:30 98 03/08/20 04:23 98.6 F 73 20 149/71 H 20 L 03/08/20 03:30 99 Weight Admit Weight 220 lb 7.396 oz Weight 223 lb 5.252 oz Most Recent Monitor Data Heart Rate from ECG 67 NIBP 118/50 NIBP BP-Mean 72 Respiration from ECG 22 SpO2 100 I&O: 03/07/20 03/08/20 03/09/20 06:59 06:59 06:59 Intake Total 360 Output Total 2615 Balance -2255 Result Diagrams: 03/08/20 05:26 03/08/20 05:26 Additional Labs: Accuchecks 03/08/20 03/07/20 03/07/20 05:02 19:33 16:38 POC Glucose 167 H 171 H 139 H Hospitalist ROS - Medication Medications: Active Medications Generic Name Dose Route Start Last Admin Trade Name Freq PRN Reason Stop Dose Admin Acetaminophen 650 mg 03/01/20 21:52 03/08/20 08:38 Tylenol PO 650 mg Q4H PRN Administration Headache/Fever/Mild Pain (1-3) Albuterol/Ipratropium 3 ml 03/04/20 10:30 03/08/20 12:48 Duoneb NEB Not Given [id number] TRANG Amlodipine Besylate 10 mg 03/05/20 09:00 03/08/20 08:38 Norvasc PO 10 mg DAILY TRANG Administration Aspirin 81 mg 03/07/20 09:00 03/08/20 08:38 Aspirin Chewable PO 81 mg DAILY TRANG Administration Atorvastatin Calcium 40 mg 03/02/20 21:00 03/07/20 20:43 Lipitor PO 40 mg HS TRANG Administration Carvedilol 25 mg 03/04/20 21:00 03/08/20 08:38 Coreg PO 25 mg BID TRANG Administration Ezetimibe 10 mg 03/02/20 09:00 03/08/20 08:38 Zetia PO 10 mg DAILY TRANG Administration Hydralazine HCl 25 mg 03/04/20 09:00 03/08/20 08:37 Apresoline PO 25 mg BID TRANG Administration Hydralazine HCl 10 mg 03/03/20 23:40 03/04/20 15:14 Apresoline PO 10 mg Q6HR PRN Administration Hypertension Hydralazine HCl 20 mg 03/05/20 12:18 03/05/20 12:25 Apresoline SLOW IVP 20 mg Q6H PRN Administration Hypertension Sodium Chloride 1,000 mls @ 0 mls/hr 03/03/20 14:30 03/08/20 08:37 Normal Saline 0.9% IV 1,000 mls .Q0M TRANG Administration KVO Latanoprost 1 drop 03/02/20 09:00 03/08/20 08:39 Xalatan 0.005% Ophth Soln EA EYE 1 drop DAILY TRANG Administration Levothyroxine Sodium 50 mcg 03/05/20 06:00 03/08/20 06:08 Synthroid PO 50 mcg 0600 TRANG Administration Ondansetron HCl 4 mg 03/02/20 11:53 03/02/20 14:14 Zofran Odt PO 4 mg Q8H PRN Administration Nausea/Vomiting Sertraline HCl 25 mg 03/02/20 09:00 03/08/20 08:38 Zoloft PO 25 mg DAILY TRANG Administration Sodium Chloride 10 ml 03/03/20 09:00 03/08/20 08:39 Flush - Normal Saline IVF 10 ml Q12HR TRANG Administration - Exam General Appearance: NAD Heart: RRR, no murmur Respiratory: no wheezes, no rales, no ronchi Respiratory - other findings: decreased breath sounds at the bases Gastrointestinal: soft, non-tender, non-distended Extremities - other findings: 1+ pitting edema in LE Neurological - other findings: No movement of left arm/leg, left facial droop Hosp A/P (1) Acute respiratory failure Code(s): J96.00 - ACUTE RESPIRATORY FAILURE, UNSP W HYPOXIA OR HYPERCAPNIA Status: Acute Qualifiers: Respiratory failure complication: hypoxia Qualified Code(s): J96.01 - Acute respiratory failure with hypoxia (2) Acute on chronic kidney failure Code(s): N17.9 - ACUTE KIDNEY FAILURE, UNSPECIFIED; N18.9 - CHRONIC KIDNEY DISEASE, UNSPECIFIED Status: Acute Qualifiers: Acute renal failure type: unspecified (3) Volume overload Code(s): E87.70 - FLUID OVERLOAD, UNSPECIFIED Status: Acute Qualifiers: Hypervolemia type: other Qualified Code(s): E87.79 - Other fluid overload (4) Anemia Code(s): D64.9 - ANEMIA, UNSPECIFIED Status: Chronic Qualifiers: Anemia type: due to chronic kidney disease (5) Hypertension Code(s): I10 - ESSENTIAL (PRIMARY) HYPERTENSION Status: Chronic Qualifiers: Hypertension type: essential hypertension Qualified Code(s): I10 - Essential (primary) hypertension (6) Pneumonia Code(s): J18.9 - PNEUMONIA, UNSPECIFIED ORGANISM Status: Suspected Qualifiers: Pneumonia type: aspiration pneumonia - Plan YING with CKD - s/p dialysis today and tolerated well. She currently has a right groin femoral dialysis cath. Hand pain - unknown etiology, may be related to blood draws or IV. Will request RN remove. Acute hypoxic resp failure -may be secondary to pneumonia vs volume overload associated with YING - WBC count now in normal range - change or oral antibiotics with renal dosing for 2 more doses. - Change to oral steroids and start to wean Anemia - stable HTN - well controlled Will order PT/OT evaluations Has a patiño catheter - will ask Dr. Norris if it's still needed. dvt prophy - hepari gi prophy - change from IV to oral protonix while pt is on steroids code status full Anticipated length of stay based on determination of future dialysis needs, arranging access/location for dialysis prn. Reviewed plan of care with patient , no questions or further needs at end of eval.
--- NOTE | 2020-03-08 17:44 | PRG ---
DATE OF SERVICE: 03/08/2020 SUBJECTIVE: Ms. Jerez is awake and alert today. She denies pain. She unfortunately is not able to tell me when she came to the hospital or why she came to the hospital. She feels that she is getting close to baseline. She cannot tell me where she lives other than "in [place]." PHYSICAL EXAMINATION: VITAL SIGNS: Blood pressure 121/63, heart rate 64. She is afebrile. Pulse ox 100% on 3 L oxygen. GENERAL: She is an obese, slow, female with somewhat dysarthric speech. She is not using accessory muscles. LUNGS: Fairly clear without wheezing. HEART: Regular rate and rhythm. ABDOMEN: Morbidly obese. There is no organomegaly. EXTREMITIES: She has 1+ edema. LABORATORY DATA: White count 9800, hemoglobin was 9.2 with platelet count of 146,000. Sodium 141, potassium 3.7, chloride 105, BUN 58, and creatinine 5. IMPRESSION: Respiratory failure with initial blood gas demonstrating very severe hypercapnic respiratory acidosis. Following ventilatory support, she was weaned , and blood gas is dramatically improved. It is difficult for me to fully explain the severity of her hypercapnia. There is a question of whether she might have sleep apnea, but the patient is not able to give history to confirm or deny it. She does not have evidence of secondary polycythemia or evidence of chronic CO2 retention given her normal bicarbonate. PLAN: At this point, we will continue supportive care. It does not appear as though she is going to need home noninvasive ventilator support. Outpatient sleep study would be quite reasonable, but decision that regard is deferred at this time. Job ID: [id number] MTDD
[2020-03-08] MEDS: Atorvastatin Calcium 40 MG TAB PO SCH (20:39)
[2020-03-08] MEDS: Heparin 5,000 UNITS/ML VIAL SC SCH (20:39)
[2020-03-09] MEDS: Sodium Chloride 0.9% 1,000 ML IV SCH ×2 (04:06→15:26)
[2020-03-09] MEDS: Levothyroxine Sodium 50 MCG TAB PO SCH (05:55)
[2020-03-09 06:28] LABS: #Neutrophils 7.5 thou/uL (1.40-6.50); %Eosinophils 0.4 % (0.0-10.0); %Lymphocytes 10.7 % (21.0-51.0); %Monocytes 10.3 % (0.0-10.0); %Neutrophils 78.6 % (42.0-75.0); Hemoglobin 9.5 g/dL (12.0-16.0); Mean Corpuscular HGB CONC 33.6 g/dL (32.0-36.0); Mean Corpuscular Hemoglobin 30.2 pg (27.0-31.0); Mean Corpuscular Volume 89.8 fL (78.0-98.0); Mean Platelet Volume 8.6 fL (7.4-10.4); Platelet Count 172 thou/uL (130-400); RBC Distribution Width 11.9 % (11.5-14.5); Red Blood Cell (RBC) Count 3.16 mill/uL (4.20-5.40); White Blood Cell (WBC) Count 9.6 thou/uL (4.8-10.8)
[2020-03-09 06:51] LABS: Anion Gap 13 mmol/L (10-20); BUN (Urea Nitrogen) 37 mg/dL (9.8-20.1); Calc. Creatinine Clearance 23 mL/min (70-130); Calcium 7.7 mg/dL (7.8-10.44); Carbon Dioxide 29 mmol/L (23-31); Chloride 104 mmol/L (98-107); Estimated GFR-MDRD 14; Glucose 129 mg/dL (80-115); Potassium 3.6 mmol/L (3.5-5.1); Sodium 142 mmol/L (136-145)
[2020-03-09] MEDS ORDERED: predniSONE 20 MG TAB PO SCH ×3 (08:00→12:15)
[2020-03-09] MEDS: Carvedilol 25 MG TAB PO SCH ×2 (08:40→22:37)
[2020-03-09] MEDS: Amlodipine 10 MG TAB PO SCH (08:40)
[2020-03-09] MEDS: Cefdinir 300 MG CAP PO SCH (08:40)
[2020-03-09] MEDS: Aspirin Chewable 81 MG TAB PO SCH (08:40)
[2020-03-09] MEDS: Ezetimibe 10 MG TAB PO SCH (08:40)
[2020-03-09] MEDS: Heparin 5,000 UNITS/ML VIAL SC SCH ×2 (08:41→22:36)
[2020-03-09] MEDS: hydrALAZINE 25 MG TAB PO SCH ×2 (08:41→22:37)
[2020-03-09] MEDS: Latanoprost 0.005% Ophth Soln 2.5 ml Bottle EA EYE SCH (08:41)
--- NOTE | 2020-03-09 11:17 | EKG ---
Test Reason : Blood Pressure : / mmHG Vent. Rate : 069 BPM Atrial Rate : 069 BPM P-R Int : 142 ms QRS Dur : 076 ms QT Int : 378 ms P-R-T Axes : 061 005 046 degrees QTc Int : 405 ms Normal sinus rhythm with sinus arrhythmia Normal ECG Confirmed by ALBA GOODWIN DO ([id number]), image editor TONNY LOPEZ ([id number]) on 03/09/2020 11:17:13 AM Referred By: Confirmed By:ALBA GOODWIN DO
--- NOTE | 2020-03-09 12:18 | PDOC.HOSPP ---
- Subjective Encounter Date: 03/09/20 (f/u Resp failure) Encounter Time: 12:16 Subjective: Pt less alert today during my evaluation - RN reports she was more awake and interactive with family present this mrjohn. She declined breakfast, and was sleeping at time of arrival. Pt c/o left sided arm and leg pain - chronic. - Objective Vital Signs & Weight: Vital Signs (12 hours) Temp Pulse Resp BP BP Pulse Ox Pulse Ox 03/09/20 11:36 75 16 03/09/20 10:50 98 03/09/20 08:41 61 134/73 03/09/20 08:40 61 134/73 03/09/20 08:00 96 03/09/20 07:52 61 20 03/09/20 07:31 98.5 F 61 20 134/73 100 03/09/20 04:10 98.3 F 66 18 111/57 L 99 03/09/20 02:53 100 03/09/20 02:52 100 Weight Admit Weight 220 lb 7.396 oz Weight 223 lb 5.252 oz Most Recent Monitor Data Heart Rate from ECG 67 NIBP 118/50 NIBP BP-Mean 72 Respiration from ECG 22 SpO2 100 Result Diagrams: 03/09/20 06:10 03/09/20 06:10 Additional Labs: Accuchecks 03/09/20 03/09/20 03/08/20 11:42 05:44 19:38 POC Glucose 97 127 H 167 H 03/08/20 03/06/20 16:51 12:27 POC Glucose 133 H 123 H Hospitalist ROS - Medication Medications: Active Medications Generic Name Dose Route Start Last Admin Trade Name Freq PRN Reason Stop Dose Admin Acetaminophen 650 mg 03/01/20 21:52 03/08/20 15:37 Tylenol PO 650 mg Q4H PRN Administration Headache/Fever/Mild Pain (1-3) Albuterol/Ipratropium 3 ml 03/04/20 10:30 03/09/20 11:36 Duoneb NEB 3 ml [id number] TRANG Administration Amlodipine Besylate 10 mg 03/05/20 09:00 03/09/20 08:40 Norvasc PO 10 mg DAILY TRANG Administration Aspirin 81 mg 03/07/20 09:00 03/09/20 08:40 Aspirin Chewable PO 81 mg DAILY TRANG Administration Atorvastatin Calcium 40 mg 03/02/20 21:00 03/08/20 20:39 Lipitor PO 40 mg HS TRANG Administration Carvedilol 25 mg 03/04/20 21:00 03/09/20 08:40 Coreg PO 25 mg BID TRANG Administration Cefdinir 300 mg 03/09/20 09:00 03/09/20 08:40 Omnicef PO 03/11/20 09:01 300 mg Q48H TRANG Administration Ezetimibe 10 mg 03/02/20 09:00 03/09/20 08:40 Zetia PO 10 mg DAILY TRANG Administration Heparin Sodium (Porcine) 5,000 units 03/08/20 21:00 03/09/20 08:41 Heparin SC 5,000 units BID TRANG Administration Hydralazine HCl 25 mg 03/04/20 09:00 03/09/20 08:41 Apresoline PO 25 mg BID TRANG Administration Hydralazine HCl 10 mg 03/03/20 23:40 03/04/20 15:14 Apresoline PO 10 mg Q6HR PRN Administration Hypertension Hydralazine HCl 20 mg 03/05/20 12:18 03/05/20 12:25 Apresoline SLOW IVP 20 mg Q6H PRN Administration Hypertension Sodium Chloride 1,000 mls @ 0 mls/hr 03/03/20 14:30 03/09/20 04:06 Normal Saline 0.9% IV Not Given .Q0M [facility] KVO Latanoprost 1 drop 03/02/20 09:00 03/09/20 08:41 Xalatan 0.005% Ophth Soln EA EYE Not Given DAILY [facility] Levothyroxine Sodium 50 mcg 03/05/20 06:00 03/09/20 05:55 Synthroid PO 50 mcg 0600 TRANG Administration Ondansetron HCl 4 mg 03/02/20 11:53 03/02/20 14:14 Zofran Odt PO 4 mg Q8H PRN Administration Nausea/Vomiting Pantoprazole Sodium 40 mg 03/09/20 09:00 03/09/20 08:40 Protonix PO 40 mg DAILY TRANG Administration Sertraline HCl 25 mg 03/02/20 09:00 03/09/20 08:42 Zoloft PO 25 mg DAILY TRANG Administration Sodium Chloride 10 ml 03/03/20 09:00 06/28/20 08:42 Flush - Normal Saline IVF 10 ml Q12HR TRANG Administration Tuberculin PPD 0.1 ml 03/08/20 13:00 03/08/20 15:34 Tuberculin Ppd I-DERMAL 03/11/20 13:01 0.1 ml ONE TRANG Administration - Exam General Appearance: NAD Heart: RRR, no murmur Respiratory: CTAB, no wheezes, no rales, no ronchi Extremities: no cyanosis, no clubbing, no edema Neurological - other findings: known left sided hemiparesis secondary to prior stroke Hosp A/P (1) Acute respiratory failure Code(s): J96.00 - ACUTE RESPIRATORY FAILURE, UNSP W HYPOXIA OR HYPERCAPNIA Status: Acute Qualifiers: Respiratory failure complication: hypoxia Qualified Code(s): J96.01 - Acute respiratory failure with hypoxia (2) Acute on chronic kidney failure Code(s): N17.9 - ACUTE KIDNEY FAILURE, UNSPECIFIED; N18.9 - CHRONIC KIDNEY DISEASE, UNSPECIFIED Status: Acute Qualifiers: Acute renal failure type: unspecified (3) Volume overload Code(s): E87.70 - FLUID OVERLOAD, UNSPECIFIED Status: Acute Qualifiers: Hypervolemia type: other Qualified Code(s): E87.79 - Other fluid overload (4) Anemia Code(s): D64.9 - ANEMIA, UNSPECIFIED Status: Chronic Qualifiers: Anemia type: due to chronic kidney disease (5) Hypertension Code(s): I10 - ESSENTIAL (PRIMARY) HYPERTENSION Status: Chronic Qualifiers: Hypertension type: essential hypertension Qualified Code(s): I10 - Essential (primary) hypertension (6) Pneumonia Code(s): J18.9 - PNEUMONIA, UNSPECIFIED ORGANISM Status: Suspected Qualifiers: Pneumonia type: aspiration pneumonia - Plan YING with CKD - s/p dialysis yesterday and tolerated well. She currently has a right groin femoral dialysis cath - will d/w Nephrology regarding needs for longer-term catheter. Hand & leg pain =- chronic issue, start low dose gabapentin. Continue prn tylenol Acute hypoxic resp failure -may be secondary to pneumonia vs volume overload associated with YING - Continue weaning steroids - Abx changed to oral yesterday with plan for 2 doses - q48h apart due to renal function Anemia - stable HTN - well controlled d/c patiño cath - no longer needed Consult placed to Pall Care to re-engage with goals of care and pt's understanding of dialysis. dvt prophy - heparin gi prophy - protonix while on steroids code status full Anticipated length of stay based on determination of future dialysis needs, arranging access/location for dialysis prn. Reviewed plan of care with patient , no questions or further needs at end of eval.
[2020-03-09] MEDS ORDERED: CEFAZOLIN 2 GM in Premix Bag 1 BAG IVPB SCH (14:30)
--- NOTE | 2020-03-09 16:03 | PRG ---
DATE OF SERVICE: 03/09/2020 SUBJECTIVE: Patient was seen and examined at bedside and overnight events noted. Patient denies any shortness of breath or chest pain or palpitation. No history of nausea or vomiting or diarrhea or fever or chills or cramps. OBJECTIVE: GENERAL: This is an obese female, in no apparent distress. VITAL SIGNS: Temperature 98.5. Heart rate 75. Respiratory rate 16. Blood pressure 134/73. HEENT: Atraumatic, normocephalic. Oral mucosa is moist. NECK: Supple. CARDIOVASCULAR: S1, S2 heard. Rate and rhythm regular. RESPIRATORY: Clear to auscultation. GASTROINTESTINAL: Abdomen is soft. MUSCULOSKELETAL: No tenderness. No edema. DERMATOLOGIC: No skin rash. NEUROLOGIC: Alert and awake and oriented x3. No focal neurologic deficits. Moving all the extremities. PSYCHIATRIC: Mood and affect normal. LABORATORY DATA: Potassium 3.6, BUN is 37, and creatinine is 3.9. ASSESSMENT AND PLAN: 1. Acute kidney injury on chronic kidney disease, stage 3, dialysis dependent. We will continue on dialysis. Monitor urine output. 2. Fluid overload. 3. Respiratory distress. 4. Hyperkalemia. 5. Hypertension. 6. Anemia of chronic disease. 7. Obesity. Continue on dialysis as tolerated. Job ID: [id number]
--- NOTE | 2020-03-09 17:57 | ULT ---
MAPPING BILATERAL UPPER EXTREMITIES: Technique: Ultrasound of veins of both upper extremities evaluated to access veins for dialysis graft . RIGHT UPPER EXTREMITY BRACHIAL ARTERY: 3.8 mm RADIAL ARTERY: 1.8 mm ULNAR ARTERY: 2.2 mm CEPHALIC VEIN Axilla: 3.4 mm Proximal humerus: 3.0 mm Mid humerus: 1.2 mm Distal humerus: 2.4 mm Elbow: 2.4 mm Mid Forearm: 2.0 mm BASILIC VEIN Axilla: 3.4 mm Proximal humerus: 3.4 mm Mid humerus: 3.2 mm Distal humerus: 2.7 mm Elbow: 3.1 mm Mid Forearm: 1.1 mm LEFT UPPER EXTREMITY BRACHIAL ARTERY: 4.1 mm RADIAL ARTERY: 1.9 mm ULNAR ARTERY: 1.9 mm CEPHALIC VEIN Axilla: 3.8 mm Proximal humerus: 3.3 mm Mid humerus: 2.4 mm Distal humerus: 2.3 mm Elbow: 3.7 mm Mid Forearm: 2.2 mm BASILIC VEIN Axilla: Unable to visualize Proximal humerus: 2.3 mm Mid humerus: 2.2 mm Distal humerus: 2.0 mm Elbow: 1.9 mm Mid Forearm: 1.6 mm IMPRESSION: As above. POS: AGW
--- NOTE | 2020-03-09 20:02 | PRG ---
DATE OF SERVICE: 03/09/2020 SUBJECTIVE: Ms. Jerez is feeling fairly well today, although she complains of pain in her left leg. She states that this has been present only briefly today and began after her leg was flexed to allow her to be repositioned in bed. She is tentatively scheduled for placement of a PermCath tomorrow for ongoing hemodialysis. OBJECTIVE: VITAL SIGNS: Blood pressure 129/63, oxygen saturations 100% on 2 L. She is afebrile at 99.2 and heart rate 75. GENERAL: She is a somewhat difficult to understand speech, but can communicate that she is having pain in her leg. She has features with suggestive of obstructive sleep apnea, but has never been studied. LUNGS: Show rhonchi, but no wheezing. She has no increase in effort or evidence of distress. HEART: Regular rate and rhythm. ABDOMEN: Soft, obese. EXTREMITIES: She has edema of her lower extremities. She has paresis of the left. She reports increasing pain when I have re-manipulated her left leg. LABORATORY DATA: White count today 9600, hemoglobin is 9.5, stable, and hematocrit 28.3. Electrolytes today had included BUN of 37 and creatinine of 3.92. Potassium is 3.6. She is not acidemic. IMPRESSION: Respiratory distress, improved. This is most likely related to her renal failure and volume overload. Her COVID test was negative. PLAN: We will continue supportive care. The patient would be a candidate for sleep study evaluation on outpatient basis. She is stable from a pulmonary perspective for PermCath tomorrow and probable discharge thereafter. Job ID: [id number]
[2020-03-09] MEDS: Acetaminophen 325 MG TAB PO PRN (22:37)
[2020-03-09] MEDS: Atorvastatin Calcium 40 MG TAB PO SCH (22:38)
[2020-03-09] MEDS: Gabapentin 100 MG CAP PO SCH (22:38)
[2020-03-10 06:02] LABS: Anion Gap 12 mmol/L (10-20); BUN (Urea Nitrogen) 60 mg/dL (9.8-20.1); Calc. Creatinine Clearance 16 mL/min (70-130); Calcium 7.7 mg/dL (7.8-10.44); Carbon Dioxide 28 mmol/L (23-31); Chloride 107 mmol/L (98-107); Estimated GFR-MDRD 9; Glucose 112 mg/dL (80-115); Potassium 3.6 mmol/L (3.5-5.1); Sodium 143 mmol/L (136-145)
[2020-03-10] MEDS: Levothyroxine Sodium 50 MCG TAB PO SCH (06:06)
[2020-03-10] MEDS: Carvedilol 25 MG TAB PO SCH ×2 (06:06→21:25)
[2020-03-10] MEDS: Sodium Chloride 0.9% 1,000 ML IV SCH ×3 (06:08→21:25)
--- NOTE | 2020-03-10 06:40 | CON ---
DATE OF CONSULTATION: HISTORY OF PRESENT ILLNESS: Amy Jerez is a 64-year-old black female, some cognitive disability. Height 5 foot and 9 inches, weight 223 pounds, 33 BMI, whom Dr. Raymundo placed a Trialysis catheter on 03/03/2020. Dr. Norris asked me to see her regarding placement of a hemodialysis catheter. There are still hopes that her kidney function may improve that the fistula is not yet indicated. Plan at this time is placement of hemodialysis catheter and a central line tomorrow. I have discussed with the patient, she consents. The patient has chronic kidney disease with acute kidney injury and she has longstanding chronic kidney disease. She is morbidly obese and hypertensive. HOME MEDICATIONS: 1. Eyedrops. 2. Sertraline. 3. Zofran. 4. Levothyroxine. 5. Inhalers. 6. Hydralazine. 7. Ezetimibe. 8. Colace. 9. Vitamin D3. 10. Coreg. 11. Atorvastatin. 12. Amlodipine. 13. Acetaminophen. FAMILY HISTORY: Not possible due to her cognitive disability. REVIEW OF SYSTEMS: Not possible due to her cognitive disability. She is not reliable. PAST SURGICAL HISTORY: Subdural hematoma and surgical history of cholecystectomy. PAST MEDICAL HISTORY: Hypertension, past history of stroke, epilepsy, anemia, osteoporosis, subdural hematoma, hemorrhoids, diabetes mellitus type 2, and hyperlipidemia. SOCIAL HISTORY: Alcohol drug use, none. Tobacco, none. CODE STATUS: She is a full code. PHYSICAL EXAMINATION: VITAL SIGNS: Height 5 foot and 9 inches, weight 223 pounds, 33 BMI, pulse 74, and blood pressure 134/73. HEAD, EARS, EYES, NOSE, AND THROAT: Unremarkable. LUNGS: Clear to auscultation. CARDIAC: Rhythm without murmur or gallop. ABDOMEN: Soft, obese, and nontender. EXTREMITIES: Unremarkable. Femoral catheter, Trialysis, right groin. ASSESSMENT AND PLAN: Morbidly obese, fluid overloaded. Edema of lower extremities and upper extremities. Recommend hemodialysis catheter and central line tomorrow. N.p.o. after midnight. Ultrasound vein mapping ordered and pending, but performed. Job ID: [id number]
[2020-03-10] MEDS ORDERED: predniSONE 20 MG TAB PO SCH (08:00)
[2020-03-10] MEDS: Heparin 5,000 UNITS/ML VIAL SC SCH ×2 (08:10→21:24)
[2020-03-10] MEDS: Latanoprost 0.005% Ophth Soln 2.5 ml Bottle EA EYE SCH (08:11)
[2020-03-10] MEDS ORDERED: Heparin 10,000 UNITS/ 10 ML VIAL ONE (09:23)
[2020-03-10] MEDS: hydrALAZINE 25 MG TAB PO SCH ×2 (09:44→21:24)
[2020-03-10] MEDS: Ezetimibe 10 MG TAB PO SCH (09:44)
[2020-03-10] MEDS: Aspirin Chewable 81 MG TAB PO SCH (09:44)
[2020-03-10] MEDS: Amlodipine 10 MG TAB PO SCH (09:44)
--- NOTE | 2020-03-10 12:26 | PRG ---
DATE OF SERVICE: 03/10/2020 SUBJECTIVE: This morning, she is awake, alert, and responsive. She is being dialyzed, more awake. OBJECTIVE: VITAL SIGNS: Temperature 97, pulse 74, respiratory rate 20, saturations 100%, blood pressure 135/68. CHEST: Decreased breath sounds. No wheezing. CARDIAC: Normal S1 and S2. No gallops. ABDOMEN: No masses. ASSESSMENT: Morbid obesity, respiratory failure, CVA hypoventilation syndrome. PLAN: Continue present treatment, nocturnal BiPAP as tolerated, eventually placement. Job ID: [id number]
--- NOTE | 2020-03-10 14:07 | PRG ---
DATE OF SERVICE: 03/10/2020 SUBJECTIVE: A 64-year-old female, being seen for end-stage renal disease. The patient denied any nausea, vomiting, or chest pain. OBJECTIVE: General: The patient is awake and alert. Vital Signs: Afebrile, pulse 75, breathing at 16, blood pressure 135/68. HEENT: Head normocephalic and atraumatic. Eyes intact, no ulcers. Nose intact, no ulcers. Ears intact, no ulcers. Neck: Supple. No JVD. Chest: Symmetrical and clear. Cardiovascular: Shows S1 and S2, no rub, no murmur. Gastrointestinal: Abdomen is soft, bowel sounds positive. Extremities: Show no edema or ulcers. Skin: Shows no rash or petechiae. Musculoskeletal: Shows no joint swelling or stiffness. Genitourinary: Shows no Napoles or CVA tenderness. Neurologic: Motor intact. Cranial nerves intact. LABORATORY DATA: Reviewed. ASSESSMENT AND PLAN: 1. chronic kidney disease, plan hemodialysis. 2. Hypertension, stable. 3. Anemia, stable. 4. Medication based on GFR appropriate. Job ID: [id number]
[2020-03-10] MEDS ORDERED: Fentanyl 100 MCG/2 ML VIAL ONE (14:22)
[2020-03-10] MEDS ORDERED: Sodium Chloride 0.9% 20 ML ONE (14:28)
[2020-03-10] MEDS ORDERED: Bupivacaine PF 0.5% 30 ML VIAL ONE (14:28)
[2020-03-10] MEDS ORDERED: Lidocaine 1% w/Epinephrine 1:100K 20 ML VIAL ONE (14:28)
[2020-03-10] MEDS ORDERED: Ondansetron HCl/PF 4 MG/2 ML Vial IVP PRN (15:54)
[2020-03-10] MEDS ORDERED: Promethazine HCl 25 MG/ML VIAL IM PRN (15:54)
[2020-03-10] MEDS ORDERED: Promethazine HCl 25 MG/ML VIAL SLOW IVP PRN (15:54)
--- NOTE | 2020-03-10 16:19 | RAD ---
EXAM: Single view of the chest HISTORY: Central line placement COMPARISON: 03/06/2020 FINDINGS: Single view of the chest shows an enlarged but stable cardiomediastinal silhouette. A righ t IJ dialysis catheter seen with its tip in the superior vena cava. A left IJ central venous catheter seen with its tip in the superior vena cava. No pneumothorax is seen. Opacity in the left l lizzy base may represent atelectasis or an infiltrate. The bones are unremarkable. IMPRESSION: 1. Status post central line placement without evidence of complication 2. Possible left lower lobe infiltrate
--- NOTE | 2020-03-10 17:11 | PDOC.HOSPP ---
- Subjective Encounter Date: 03/10/20 (f/u resp failure) Encounter Time: 17:10 Subjective: Pt is s/p OR today for chest dialysis catheter and central line placement. She is without complaints. - Objective Vital Signs & Weight: Vital Signs (12 hours) Temp Pulse Resp BP BP Pulse Ox 03/10/20 16:30 98.4 F 72 18 144/69 H 94 L 03/10/20 09:44 74 03/10/20 08:00 100 03/10/20 07:32 97.9 F 74 20 135/68 100 03/10/20 07:17 68 16 97 Weight Admit Weight 220 lb 7.396 oz Weight 223 lb 5.252 oz Most Recent Monitor Data Heart Rate from ECG 67 NIBP 118/50 NIBP BP-Mean 72 Respiration from ECG 22 SpO2 100 Result Diagrams: 03/09/20 06:10 03/10/20 05:10 Additional Labs: Accuchecks 03/10/20 03/09/20 04:32 19:42 POC Glucose 121 H 110 Hospitalist ROS - Medication Medications: Active Medications Generic Name Dose Route Start Last Admin Trade Name Freq PRN Reason Stop Dose Admin Acetaminophen 650 mg 03/01/20 21:52 03/09/20 22:37 Tylenol PO 650 mg Q4H PRN Administration Headache/Fever/Mild Pain (1-3) Albuterol/Ipratropium 3 ml 03/04/20 10:30 03/10/20 14:42 Duoneb NEB Not Given F6OO-LR TRANG Amlodipine Besylate 10 mg 03/05/20 09:00 03/10/20 09:44 Norvasc PO Not Given DAILY TRANG Aspirin 81 mg 03/07/20 09:00 03/10/20 09:44 Aspirin Chewable PO Not Given DAILY TRANG Atorvastatin Calcium 40 mg 03/02/20 21:00 03/09/20 22:38 Lipitor PO 40 mg HS TRANG Administration Carvedilol 25 mg 03/04/20 21:00 03/10/20 06:06 Coreg PO 25 mg BID TRANG Administration Cefdinir 300 mg 03/09/20 09:00 03/09/20 08:40 Omnicef PO 03/11/20 09:01 300 mg Q48H TRANG Administration Ezetimibe 10 mg 03/02/20 09:00 03/10/20 09:44 Zetia PO Not Given DAILY TRANG Gabapentin 100 mg 03/09/20 21:00 03/09/20 22:38 Neurontin PO 100 mg HS TRANG Administration Heparin Sodium (Porcine) 5,000 units 03/08/20 21:00 03/10/20 08:10 Heparin SC Not Given BID TRANG Hydralazine HCl 25 mg 03/04/20 09:00 03/10/20 09:44 Apresoline PO Not Given BID TRANG Hydralazine HCl 10 mg 03/03/20 23:40 03/04/20 15:14 Apresoline PO 10 mg Q6HR PRN Administration Hypertension Hydralazine HCl 20 mg 03/05/20 12:18 03/05/20 12:25 Apresoline SLOW IVP 20 mg Q6H PRN Administration Hypertension Sodium Chloride 1,000 mls @ 0 mls/hr 03/03/20 14:30 03/10/20 10:15 Normal Saline 0.9% IV Not Given .Q0M [facility] KVO Latanoprost 1 drop 03/02/20 09:00 03/10/20 08:11 Xalatan 0.005% Ophth Soln EA EYE Not Given DAILY [facility] Levothyroxine Sodium 50 mcg 03/05/20 06:00 03/10/20 06:06 Synthroid PO 50 mcg 0600 TRANG Administration Ondansetron HCl 4 mg 03/02/20 11:53 03/02/20 14:14 Zofran Odt PO 4 mg Q8H PRN Administration Nausea/Vomiting Pantoprazole Sodium 40 mg 03/09/20 09:00 03/10/20 09:44 Protonix PO Not Given DAILY TRANG Prednisone 30 mg 03/10/20 08:00 03/10/20 09:44 Prednisone PO Not Given QAM-WM TRANG Sertraline HCl 25 mg 03/02/20 09:00 03/10/20 09:45 Zoloft PO Not Given DAILY TRANG Sodium Chloride 10 ml 03/03/20 09:00 03/10/20 09:45 Flush - Normal Saline IVF Not Given Q12HR TRANG Tuberculin PPD 0.1 ml 03/08/20 13:00 03/08/20 15:34 Tuberculin Ppd I-DERMAL 03/11/20 13:01 0.1 ml ONE TRANG Administration - Exam General Appearance: NAD Heart: RRR, no murmur Respiratory: CTAB, no wheezes, no rales, no ronchi Extremities - other findings: unchanged left hemiparesis Psychiatric - other findings: speech is slowed c/w post-operative condition Hosp A/P (1) Acute respiratory failure Code(s): J96.00 - ACUTE RESPIRATORY FAILURE, UNSP W HYPOXIA OR HYPERCAPNIA Status: Acute Qualifiers: Respiratory failure complication: hypoxia Qualified Code(s): J96.01 - Acute respiratory failure with hypoxia (2) Acute on chronic kidney failure Code(s): N17.9 - ACUTE KIDNEY FAILURE, UNSPECIFIED; N18.9 - CHRONIC KIDNEY DISEASE, UNSPECIFIED Status: Acute Qualifiers: Acute renal failure type: unspecified (3) Volume overload Code(s): E87.70 - FLUID OVERLOAD, UNSPECIFIED Status: Acute Qualifiers: Hypervolemia type: other Qualified Code(s): E87.79 - Other fluid overload (4) Anemia Code(s): D64.9 - ANEMIA, UNSPECIFIED Status: Chronic Qualifiers: Anemia type: due to chronic kidney disease (5) Hypertension Code(s): I10 - ESSENTIAL (PRIMARY) HYPERTENSION Status: Chronic Qualifiers: Hypertension type: essential hypertension Qualified Code(s): I10 - Essential (primary) hypertension (6) Pneumonia Code(s): J18.9 - PNEUMONIA, UNSPECIFIED ORGANISM Status: Suspected Qualifiers: Pneumonia type: aspiration pneumonia - Plan YING with CKD with ongoing need for dialysis, now with longer-term access Hand & leg pain = gabapentin started yesterday Acute hypoxic resp failure -may be secondary to pneumonia vs volume overload associated with YING - Will continue weaning steroids - Abx changed to oral yesterday with plan for 2 doses - q48h apart due to renal function Anemia - stable HTN - well controlled Consult placed to Pall Care placed yesterday to re-engage with goals of care. dvt prophy - heparin gi prophy - protonix while on steroids code status full Anticipated length of stay based on determination of future dialysis needs, arranging access/location for dialysis prn. Reviewed plan of care with patient , no questions or further needs at end of eval.
--- NOTE | 2020-03-10 17:54 | OP ---
DATE OF PROCEDURE: 03/10/2020 PREOPERATIVE DIAGNOSIS: End-stage renal disease, hopefully renal recovery, right arm midline placed in a chronic kidney disease patient, predisposing her to cephalic vein thrombosis and need for prosthetic graft. POSTOPERATIVE DIAGNOSIS: End-stage renal disease, hopefully renal recovery, right arm midline placed in a chronic kidney disease patient, predisposing her to cephalic vein thrombosis and need for prosthetic graft. PROCEDURES PERFORMED: 1. Right internal jugular cuffed tunneled hemodialysis catheter, angio Dynamics, pre-curved. 2. Left internal jugular central line triple lumen, ultrasound and fluoroscopy used. ANESTHESIA: Intravenous sedation and local with 0.5% Marcaine 30 mL, mixed with 1% Xylocaine with epinephrine 20 mL. DESCRIPTION OF PROCEDURE: The patient was taken to the operating room where under IV sedation, neck and chest prepared with ChloraPrep and draped in routine fashion. Local anesthetic mixture was infiltrated into the skin and subcutaneous tissue about the operative site. Using ultrasound guidance, the right and left internal jugular veins were cannulated with trocar catheter, J-wire threaded, trocar catheter removed. Skin site enlarged sharply at the J-wire entry site bilaterally. Stab incision was made over the right chest. Seldinger technique was used to place triple-lumen catheter in the left IJ, secured with 3-0 nylon suture. Each port aspirated blood, flushed with saline solution. Angio Dynamics pre-curved hemodialysis catheter tunneled between 2 incisions, placed the fabric cuff beneath the skin exit site over the chest. Catheter secured with 2 interrupted sutures of 3-0 nylon. Sterile dressing applied. Small and medium size dilators were placed over the J-wire into the internal jugular vein and removed. Dilator and Peel-Away sheath placed over the J-wire in the superior vena cava. Dilator and J-wire removed. Catheter placed with Peel-Away sheath. Peel-Away sheath was removed. Fluoroscopic images revealed good line placement. Platysma was approximated with 4-0 Monocryl, skin with subdermal 4-0 Monocryl and [place] glue and sterile dressings applied. Each of the ports of all catheters aspirated blood and flushed with saline solution and a hemodialysis catheter flushed with 1000 units of heparin per mL, indicating volume of the port. The patient tolerated the procedure well. Job ID: [id number]
[2020-03-10] MEDS: Atorvastatin Calcium 40 MG TAB PO SCH (21:24)
[2020-03-10] MEDS: Gabapentin 100 MG CAP PO SCH (21:24)
[2020-03-10] MEDS: Acetaminophen 325 MG TAB PO PRN (21:24)
[2020-03-11] MEDS: Levothyroxine Sodium 50 MCG TAB PO SCH (04:56)
[2020-03-11] MEDS: Acetaminophen 325 MG TAB PO PRN ×3 (04:59→14:46)
[2020-03-11] MEDS: Sodium Chloride 0.9% 1,000 ML IV SCH ×2 (07:23→15:24)
[2020-03-11] MEDS ORDERED: predniSONE 20 MG TAB PO SCH (08:00)
[2020-03-11] MEDS: Ezetimibe 10 MG TAB PO SCH (08:23)
[2020-03-11] MEDS: Heparin 5,000 UNITS/ML VIAL SC SCH ×2 (08:23→20:03)
[2020-03-11] MEDS: Aspirin Chewable 81 MG TAB PO SCH (08:24)
[2020-03-11] MEDS: hydrALAZINE 25 MG TAB PO SCH ×2 (08:24→20:01)
[2020-03-11] MEDS: Cefdinir 300 MG CAP PO SCH (08:24)
[2020-03-11] MEDS: Carvedilol 25 MG TAB PO SCH ×2 (08:24→20:02)
[2020-03-11] MEDS: Latanoprost 0.005% Ophth Soln 2.5 ml Bottle EA EYE SCH (08:25)
[2020-03-11] MEDS: Amlodipine 10 MG TAB PO SCH (08:25)
--- NOTE | 2020-03-11 11:55 | PRG ---
DATE OF SERVICE: 03/11/2020 SUBJECTIVE: Amy Jerez is morbidly obese female. This morning, still lethargic, but arousable. OBJECTIVE: VITAL SIGNS: Temperature 98, pulse 78, saturations 99% on 2 L, blood pressure . CHEST: No wheezing or crackles. CARDIAC: Normal S1 and S2. IMPRESSION: Respiratory failure secondary to obesity hypoventilation syndrome, chronic renal failure, permanent dialysis, severe deconditioning. Pulmonary perez, she will require nocturnal support in BiPAP or CPAP. Unfortunately, I am not so sure she is going to be able to have an outpatient sleep study done. Continue aggressive PT. Job ID: [id number]
--- NOTE | 2020-03-11 14:48 | PRG ---
DATE OF SERVICE: 03/11/2020 SUBJECTIVE: A 64-year-old female being seen for acute kidney injury. Patient denied nausea, vomiting, or chest pain. OBJECTIVE: GENERAL: The patient is awake and alert. VITAL SIGNS: Pulse 74, breathing 16, blood pressure 130/72. HEENT: Head normocephalic and atraumatic. Eyes intact, no ulcers. Nose intact, no ulcers. Ears intact, no ulcers. NECK: Supple. No JVD. CHEST: Symmetrical and clear. CARDIOVASCULAR: Shows S1 and S2, no rub, no murmur. GASTROINTESTINAL: Abdomen is soft, bowel sounds positive. EXTREMITIES: Show no edema or ulcers. SKIN: Shows no rash or petechiae. MUSCULOSKELETAL: Shows no joint swelling or stiffness. GENITOURINARY: Shows no Napoles or CVA tenderness. NEUROLOGIC: Motor intact. Cranial nerves intact. LABORATORY DATA: Hemoglobin 9.5, creatinine 5.78. ASSESSMENT: 1. Chronic kidney disease stage , plan dialysis. 2. Hypertension, stable. 3. Anemia, stable. Medication based on GFR appropriate. Job ID: [id number]
--- NOTE | 2020-03-11 15:09 | PDOC.HOSPP ---
- Subjective Encounter Date: 03/11/20 (f/u YING with CKD) Encounter Time: 15:07 Subjective: 64 y/o female with hx of stroke and left hemiparesis admitted for respiratory failure. Pt on bipap at night, and hemodialysis, with improvement in breathing through this hospitalization. Pt c/o pain in her left leg. She is requesting chocolate. She denies any problems with breathing, n/v/abd pain. - Objective Vital Signs & Weight: Vital Signs (12 hours) Temp Pulse Resp BP Pulse Ox Pulse Ox 03/11/20 13:29 79 14 98 03/11/20 10:01 98 03/11/20 08:25 75 03/11/20 08:24 75 03/11/20 08:00 98.5 F 78 18 116/64 99 03/11/20 06:48 75 16 98 Weight Admit Weight 220 lb 7.396 oz Weight 223 lb 5.252 oz Most Recent Monitor Data Heart Rate from ECG 67 NIBP 118/50 NIBP BP-Mean 72 Respiration from ECG 22 SpO2 100 Result Diagrams: 03/09/20 06:10 03/10/20 05:10 Additional Labs: Accuchecks 03/11/20 03/11/20 03/10/20 11:26 04:35 20:27 POC Glucose 118 H 101 102 Hospitalist ROS - Medication Medications: Active Medications Generic Name Dose Route Start Last Admin Trade Name Freq PRN Reason Stop Dose Admin Acetaminophen 650 mg 03/01/20 21:52 03/11/20 14:46 Tylenol PO 650 mg Q4H PRN Administration Headache/Fever/Mild Pain (1-3) Albuterol/Ipratropium 3 ml 03/04/20 10:30 03/11/20 13:29 Duoneb NEB 3 ml [id number] TRANG Administration Amlodipine Besylate 10 mg 03/05/20 09:00 03/11/20 08:25 Norvasc PO 10 mg DAILY TRANG Administration Aspirin 81 mg 03/07/20 09:00 03/11/20 08:24 Aspirin Chewable PO 81 mg DAILY TRANG Administration Atorvastatin Calcium 40 mg 03/02/20 21:00 03/10/20 21:24 Lipitor PO 40 mg HS TRANG Administration Carvedilol 25 mg 03/04/20 21:00 03/11/20 08:24 Coreg PO 25 mg BID TRANG Administration Ezetimibe 10 mg 03/02/20 09:00 03/11/20 08:23 Zetia PO 10 mg DAILY TRANG Administration Gabapentin 100 mg 03/09/20 21:00 03/10/20 21:24 Neurontin PO 100 mg HS TRANG Administration Heparin Sodium (Porcine) 5,000 units 03/08/20 21:00 03/11/20 08:23 Heparin SC 5,000 units BID TRANG Administration Hydralazine HCl 25 mg 03/04/20 09:00 03/11/20 08:24 Apresoline PO 25 mg BID TRANG Administration Hydralazine HCl 10 mg 03/03/20 23:40 03/04/20 15:14 Apresoline PO 10 mg Q6HR PRN Administration Hypertension Hydralazine HCl 20 mg 03/05/20 12:18 03/05/20 12:25 Apresoline SLOW IVP 20 mg Q6H PRN Administration Hypertension Sodium Chloride 1,000 mls @ 0 mls/hr 03/03/20 14:30 03/11/20 07:23 Normal Saline 0.9% IV Not Given .Q0M [facility] KVO Latanoprost 1 drop 03/02/20 09:00 03/11/20 08:25 Xalatan 0.005% Ophth Soln EA EYE Not Given DAILY TRANG Levothyroxine Sodium 50 mcg 03/05/20 06:00 03/11/20 04:56 Synthroid PO 50 mcg 0600 TRANG Administration Ondansetron HCl 4 mg 03/02/20 11:53 03/02/20 14:14 Zofran Odt PO 4 mg Q8H PRN Administration Nausea/Vomiting Pantoprazole Sodium 40 mg 03/09/20 09:00 03/11/20 08:25 Protonix PO 40 mg DAILY TRANG Administration Sertraline HCl 25 mg 03/02/20 09:00 03/11/20 08:24 Zoloft PO 25 mg DAILY TRANG Administration Sodium Chloride 10 ml 03/03/20 09:00 03/11/20 08:25 Flush - Normal Saline IVF Not Given Q12HR TRANG - Exam General Appearance: NAD Heart: RRR, no murmur Respiratory: CTAB, no wheezes, no rales, no ronchi Gastrointestinal: soft, non-tender, non-distended, normal bowel sounds Extremities - other findings: minimal movement of left hip flexor and left shoulder Hosp A/P (1) Acute respiratory failure Code(s): J96.00 - ACUTE RESPIRATORY FAILURE, UNSP W HYPOXIA OR HYPERCAPNIA Status: Acute Qualifiers: Respiratory failure complication: hypoxia Qualified Code(s): J96.01 - Acute respiratory failure with hypoxia (2) Acute on chronic kidney failure Code(s): N17.9 - ACUTE KIDNEY FAILURE, UNSPECIFIED; N18.9 - CHRONIC KIDNEY DISEASE, UNSPECIFIED Status: Acute Qualifiers: Acute renal failure type: unspecified (3) Volume overload Code(s): E87.70 - FLUID OVERLOAD, UNSPECIFIED Status: Acute Qualifiers: Hypervolemia type: other Qualified Code(s): E87.79 - Other fluid overload (4) Anemia Code(s): D64.9 - ANEMIA, UNSPECIFIED Status: Chronic Qualifiers: Anemia type: due to chronic kidney disease (5) Hypertension Code(s): I10 - ESSENTIAL (PRIMARY) HYPERTENSION Status: Chronic Qualifiers: Hypertension type: essential hypertension Qualified Code(s): I10 - Essential (primary) hypertension (6) Pneumonia Code(s): J18.9 - PNEUMONIA, UNSPECIFIED ORGANISM Status: Suspected Qualifiers: Pneumonia type: aspiration pneumonia (7) Leg pain Status: Chronic Qualifiers: Laterality: left Qualified Code(s): M79.605 - Pain in left leg - Plan YING with CKD now on dialysis - consul tto case management to arrange outpatient dialysis Hand & leg pain = increase gabapentin to 300 mg HS Acute hypoxic resp failure -may be secondary to pneumonia vs volume overload associated with YING - Will continue weaning steroids - 10 mg tomorrow then plan to stop - Abx changed to oral yesterday with plan for 2 doses - q48h apart due to renal function Anemia - stable HTN - well controlled Consult placed to Pall Care placed yesterday to re-engage with goals of care. dvt prophy - heparin gi prophy - protonix while on steroids code status full Anticipated length of stay based on determination of future dialysis needs, arranging access/location for dialysis prn. Reviewed plan of care with patient , no questions or further needs at end of eval.
[2020-03-11] MEDS: Atorvastatin Calcium 40 MG TAB PO SCH (20:01)
[2020-03-11] MEDS: Gabapentin 100 MG CAP PO SCH (20:02)
--- NOTE | 2020-03-11 22:46 | PDOC.EVN ---
Event Note - Event Note Event Note: Nurse called reporting periods of apnea on Bipap at night, sp02 99%, RT recommended ABG. Ordered ABG.
[2020-03-11 23:10] LABS: Base Excess (BEa) 0.9 mEq/L (-2.0 to +3.0); CO2 Tension 57.8 mmHg (35.0-45.0); Calcium, Ionized (arterial) 1.14 mmol/L (1.12-1.30); Carboxyhemoglobin (COHb) 0.3 gm% (0.0-3.0); Hemoglobin (Hb) 9.8 g/dL (12.0-16.0); O2 Tension (PaO2), arterial 176.5 mmHg (> 80.0); Potassium - ABG Lab 4.35 mmol/L (3.70-5.30)
[2020-03-11 23:11] LABS: Puncture Site RRA
[2020-03-12] MEDS: Sodium Chloride 0.9% 1,000 ML IV SCH ×4 (03:03→23:41)
[2020-03-12] MEDS: Levothyroxine Sodium 50 MCG TAB PO SCH (05:16)
[2020-03-12] MEDS: hydrALAZINE 25 MG TAB PO SCH ×2 (07:46→20:42)
[2020-03-12] MEDS: Aspirin Chewable 81 MG TAB PO SCH (07:46)
[2020-03-12] MEDS: Carvedilol 25 MG TAB PO SCH ×2 (07:46→20:42)
[2020-03-12] MEDS: Amlodipine 10 MG TAB PO SCH (07:46)
[2020-03-12] MEDS: Ezetimibe 10 MG TAB PO SCH (07:48)
[2020-03-12] MEDS: Latanoprost 0.005% Ophth Soln 2.5 ml Bottle EA EYE SCH (07:49)
[2020-03-12] MEDS: Heparin 5,000 UNITS/ML VIAL SC SCH ×2 (07:58→20:47)
[2020-03-12] MEDS ORDERED: predniSONE 5 MG TAB PO SCH (08:00)
[2020-03-12] MEDS ORDERED: Heparin 10,000 UNITS/ 10 ML VIAL ONE (09:02)
--- NOTE | 2020-03-12 10:33 | PRG ---
DATE OF SERVICE: 03/12/2020 SUBJECTIVE: 64-year-old female being seen for end-stage renal disease. The patient denies any nausea, vomiting, or chest pain. PHYSICAL EXAMINATION: General: The patient is awake and alert. Vital Signs: Afebrile, pulse 75, breathing at 16, blood pressure 132/78. HEENT: Head normocephalic and atraumatic. Eyes intact, no ulcers. Nose intact, no ulcers. Ears intact, no ulcers. Neck: Supple. No JVD. Chest: Symmetrical and clear. Cardiovascular: Shows S1 and S2, no rub, no murmur. Gastrointestinal: Abdomen is soft, bowel sounds positive. Extremities: Show no edema or ulcers. Skin: Shows no rash or petechiae. Musculoskeletal: Shows no joint swelling or stiffness. Genitourinary: Shows no Napoles or CVA tenderness. Neurologic: Motor intact. Cranial nerves intact. LABORATORY DATA: Labs reviewed. ASSESSMENT: 1. Stage 3 chronic kidney disease, stable. 2. Hypertension, stable. 3. Anemia. 4. Medication based on GFR appropriate. Job ID: [id number]
--- NOTE | 2020-03-12 11:46 | PRG ---
DATE OF SERVICE: 03/12/2020 SUBJECTIVE: This morning, she is being dialyzed. OBJECTIVE: VITAL SIGNS: Temperature 98, pulse 86, respirations 18, saturations 100% on 2 L, blood pressure 130/78. CHEST: No wheezing. No crackles. CARDIAC: Normal S1 and S2. No gallops. ABDOMEN: No masses. LABORATORY DATA: PO2 is 176, pCO2 of 50, pH is 7.3, on a BiPAP 40% FiO2. ASSESSMENT: 1. Chronic respiratory failure, morbid obesity hypoventilation syndrome. 2. Chronic renal failure. PLAN: She needs to be on nocturnal Bi[facility]AP [facility]. It is imperative otherwise she is going to come back into the hospital. Making a note with respiratory. Job ID: [id number]
--- NOTE | 2020-03-12 15:01 | PDOC.HOSPP ---
- Subjective Encounter Date: 03/12/20 (f/u resp failure) Encounter Time: 14:57 Subjective: Ms. Jerez is a 64 y/o female with hx of stroke and left hemiparesis who presented to the hospital for respiratory failure. Since admission, pt has been stabilized with bipap while sleeping, is now on hemodialysis with a chest catheter that was placed yesterday, and is now stable. She has chronic left arm and leg pain and gabapentin was initated. Pt is s/p dialysis today. Reports her neck hurts, and her left leg hurts. She wants to change positions in the bed and states she feels hot. No overnight events. RN/Halley notes that pt is not chewing much, but will take meds with applesauce. - Objective Vital Signs & Weight: Vital Signs (12 hours) Temp Pulse Resp BP BP Pulse Ox 03/12/20 12:18 98.4 F 71 18 113/65 100 03/12/20 08:01 98.2 F 86 18 132/78 100 03/12/20 08:00 100 03/12/20 07:46 87 03/12/20 07:00 87 10 L 100 03/12/20 06:59 80 12 100 03/12/20 04:59 98.2 F 71 16 121/62 97 Weight Admit Weight 220 lb 7.396 oz Weight 223 lb 5.252 oz Most Recent Monitor Data Heart Rate from ECG 67 NIBP 118/50 NIBP BP-Mean 72 Respiration from ECG 22 SpO2 100 I&O: 03/11/20 03/12/20 03/13/20 06:59 06:59 06:59 Intake Total 530 Balance 530 Result Diagrams: 03/09/20 06:10 03/10/20 05:10 Additional Labs: Accuchecks 03/12/20 03/11/20 03/11/20 04:58 19:42 16:22 POC Glucose 111 H 128 H 163 H Hospitalist ROS - Medication Medications: Active Medications Generic Name Dose Route Start Last Admin Trade Name Freq PRN Reason Stop Dose Admin Acetaminophen 650 mg 03/01/20 21:52 03/11/20 14:46 Tylenol PO 650 mg Q4H PRN Administration Headache/Fever/Mild Pain (1-3) Albuterol/Ipratropium 3 ml 03/04/20 10:30 03/12/20 10:32 Duoneb NEB Not Given [id number] TRANG Amlodipine Besylate 10 mg 03/05/20 09:00 03/12/20 07:46 Norvasc PO 10 mg DAILY TRANG Administration Aspirin 81 mg 03/07/20 09:00 03/12/20 07:46 Aspirin Chewable PO 81 mg DAILY TRANG Administration Atorvastatin Calcium 40 mg 03/02/20 21:00 03/11/20 20:01 Lipitor PO 40 mg HS TRANG Administration Carvedilol 25 mg 03/04/20 21:00 03/12/20 07:46 Coreg PO 25 mg BID TRANG Administration Ezetimibe 10 mg 03/02/20 09:00 03/12/20 07:48 Zetia PO 10 mg DAILY TRANG Administration Heparin Sodium (Porcine) 5,000 units 03/08/20 21:00 03/12/20 07:58 Heparin SC Not Given BID TRANG Hydralazine HCl 25 mg 03/04/20 09:00 03/12/20 07:46 Apresoline PO 25 mg BID TRANG Administration Hydralazine HCl 10 mg 03/03/20 23:40 03/04/20 15:14 Apresoline PO 10 mg Q6HR PRN Administration Hypertension Hydralazine HCl 20 mg 03/05/20 12:18 03/05/20 12:25 Apresoline SLOW IVP 20 mg Q6H PRN Administration Hypertension Sodium Chloride 1,000 mls @ 0 mls/hr 03/03/20 14:30 03/12/20 12:42 Normal Saline 0.9% IV Not Given .Q0M TRANG KVO Latanoprost 1 drop 03/02/20 09:00 03/12/20 07:49 Xalatan 0.005% Ophth Soln EA EYE Not Given DAILY TRANG Levothyroxine Sodium 50 mcg 03/05/20 06:00 03/12/20 05:16 Synthroid PO 50 mcg 0600 TRANG Administration Ondansetron HCl 4 mg 03/02/20 11:53 03/02/20 14:14 Zofran Odt PO 4 mg Q8H PRN Administration Nausea/Vomiting Pantoprazole Sodium 40 mg 03/09/20 09:00 03/12/20 07:48 Protonix PO 40 mg DAILY TRANG Administration Sertraline HCl 25 mg 03/02/20 09:00 03/12/20 07:45 Zoloft PO 25 mg DAILY TRANG Administration Sodium Chloride 10 ml 03/03/20 09:00 03/12/20 07:49 Flush - Normal Saline IVF Not Given Q12HR TRANG - Exam General Appearance: NAD Heart: RRR, no murmur Respiratory: CTAB, no wheezes, no rales, no ronchi Gastrointestinal: soft, non-tender, non-distended, normal bowel sounds Extremities: no cyanosis, no clubbing, no edema Neurological - other findings: left hemiparesis Psychiatric - other findings: unchanged - slowed speech Hosp A/P (1) Acute respiratory failure Code(s): J96.00 - ACUTE RESPIRATORY FAILURE, UNSP W HYPOXIA OR HYPERCAPNIA Status: Acute Qualifiers: Respiratory failure complication: hypoxia Qualified Code(s): J96.01 - Acute respiratory failure with hypoxia (2) Acute on chronic kidney failure Code(s): N17.9 - ACUTE KIDNEY FAILURE, UNSPECIFIED; N18.9 - CHRONIC KIDNEY DISEASE, UNSPECIFIED Status: Acute Qualifiers: Acute renal failure type: unspecified (3) Volume overload Code(s): E87.70 - FLUID OVERLOAD, UNSPECIFIED Status: Acute Qualifiers: Hypervolemia type: other Qualified Code(s): E87.79 - Other fluid overload (4) Anemia Code(s): D64.9 - ANEMIA, UNSPECIFIED Status: Chronic Qualifiers: Anemia type: due to chronic kidney disease (5) Hypertension Code(s): I10 - ESSENTIAL (PRIMARY) HYPERTENSION Status: Chronic Qualifiers: Hypertension type: essential hypertension Qualified Code(s): I10 - Essential (primary) hypertension (6) Pneumonia Code(s): J18.9 - PNEUMONIA, UNSPECIFIED ORGANISM Status: Suspected Qualifiers: Pneumonia type: aspiration pneumonia (7) Leg pain Status: Chronic Qualifiers: Laterality: left Qualified Code(s): M79.605 - Pain in left leg - Plan YING with CKD now on dialysis - Case management arranging this for outpatient. Pt lives at [facility] in [place]. There is no dialysis center in [place], so it has to be arranged at a facility in the [facility] area. Acute hypoxic resp failure -improved - continue bipap when sleeping - oxygen during the day - has completed a course of steroids and antibiotics - both d/c today Anemia - stable HTN - well controlled Speech consult to assess swallowing/recommendations on food texture to optimize nutrition. Change to pureed diet for now. dvt prophy - heparin gi prophy - will discontinue as today is the last dose of prednisone code status full Planning for discharge when dialysis arranged. Pt will also need bipap at her facility - will place CM consult for their awareness.
[2020-03-12] MEDS: Gabapentin 100 MG CAP PO SCH ×2 (15:32→20:42)
--- NOTE | 2020-03-12 16:55 | PDOC.PALPN ---
Palliative Progress Note - Subjective Awake, converses. Complains of neck and leg pain. Could not recall going to dialysis this morning. Overnight apnic episode. - Objective Vital Signs: Vital Signs - Most Recent Temp Pulse Resp BP Pulse Ox 98.4 F 81 14 113/65 98 03/12/20 12:18 03/12/20 15:20 03/12/20 15:20 03/12/20 12:18 03/12/20 15:20 - Physical Exam Constitutional: confusion, ill appearing HEENT: moist MMs, sclera anicteric, poor dentition Respiratory: no wheezing, diminished lung sound Cardiovascular: RRR Gastrointestinal: soft, positive bowel sounds, incontinent Genitourinary: incontinent Musculoskeletal: diffuse muscle atrophy Skin: cap refill <2 seconds, no lesions, no rash Psychiatric: normal mood - Assessment (1) Obesity Code(s): E66.9 - OBESITY, UNSPECIFIED Current Visit: Yes Status: Acute (2) Palliative care encounter Code(s): Z51.5 - ENCOUNTER FOR PALLIATIVE CARE Current Visit: Yes Status: Acute (3) Acute on chronic kidney failure Code(s): N17.9 - ACUTE KIDNEY FAILURE, UNSPECIFIED; N18.9 - CHRONIC KIDNEY DISEASE, UNSPECIFIED Current Visit: Yes Status: Acute Qualifiers: Acute renal failure type: unspecified (4) Acute respiratory failure Code(s): J96.00 - ACUTE RESPIRATORY FAILURE, UNSP W HYPOXIA OR HYPERCAPNIA Current Visit: Yes Status: Acute Qualifiers: Respiratory failure complication: hypoxia Qualified Code(s): J96.01 - Acute respiratory failure with hypoxia (5) Volume overload Code(s): E87.70 - FLUID OVERLOAD, UNSPECIFIED Current Visit: Yes Status: Acute Qualifiers: Hypervolemia type: other Qualified Code(s): E87.79 - Other fluid overload (6) Hypertension Code(s): I10 - ESSENTIAL (PRIMARY) HYPERTENSION Current Visit: Yes Status: Chronic Qualifiers: Hypertension type: essential hypertension Qualified Code(s): I10 - Essential (primary) hypertension (7) Leg pain Current Visit: Yes Status: Chronic Qualifiers: Laterality: left Qualified Code(s): M79.605 - Pain in left leg - Plan Plan: Communicated with patient. Continues to be on a pureed diet secondary to aspiration risk. Dialysis today. Spoke to brother at length who is surrogate decision maker. Discussed multiple morbidities and "Hope for the best plan for the worst". He is understanding of her decline, but hopeful that she will tolerate dialysis and not have further respiratory distress or pneumonia. Discussed option of symptom management if the family decides she is not tolerating dialysis or continues to decline. Offered family meeting via conference call, he will relay to siblings and confirm if this is decided on. *continue with aggressive measures, and if patient declines or does not tolerate revisit goal of care to ensure comfort for patient. [30] minutes spent on this encounter with >50% of the time in counseling and coordination of care. - ROS Constitutional: weakness ENT: alteration in dentition Respiratory: other (Patient denies shortness of breath) Gastrointestinal: other (negative for nausea or vomiting) Musculoskeletal: leg pain Neurological: weakness
--- NOTE | 2020-03-12 17:06 | PDOC.FMACP ---
Advance Care Planning - Problem (1) Obesity Status: Acute Code(s): E66.9 - OBESITY, UNSPECIFIED (2) Palliative care encounter Status: Acute Code(s): Z51.5 - ENCOUNTER FOR PALLIATIVE CARE (3) Acute on chronic kidney failure Status: Acute Code(s): N17.9 - ACUTE KIDNEY FAILURE, UNSPECIFIED; N18.9 - CHRONIC KIDNEY DISEASE, UNSPECIFIED Qualifiers: Acute renal failure type: unspecified (4) Acute respiratory failure Status: Acute Code(s): J96.00 - ACUTE RESPIRATORY FAILURE, UNSP W HYPOXIA OR HYPERCAPNIA Qualifiers: Respiratory failure complication: hypoxia Qualified Code(s): J96.01 - Acute respiratory failure with hypoxia (5) Volume overload Status: Acute Code(s): E87.70 - FLUID OVERLOAD, UNSPECIFIED Qualifiers: Hypervolemia type: other Qualified Code(s): E87.79 - Other fluid overload (6) Hypertension Status: Chronic Code(s): I10 - ESSENTIAL (PRIMARY) HYPERTENSION Qualifiers: Hypertension type: essential hypertension Qualified Code(s): I10 - Essential (primary) hypertension (7) Leg pain Status: Chronic Qualifiers: Laterality: left Qualified Code(s): M79.605 - Pain in left leg - Note Participants: surrogate decision-maker, palliative care Summary: Palliative care revisited Advanced Care Planning with patient sibling Shayne Jerez who is surrogate decision maker, allowed opportunity to decline. The diagnosis, prognosis and goals of care were discussed. Appropriate forms and documentation to accomplish the goals of care were discussed. All questions were answered. At the current time the siblings are electing to continue with full resuscitation measures and aggressive therapies. They request to revisit if decline occurs, poor toleration of dialysis or recurrent pneumonia. The Palliative Care Team will be engaged to assist with completion of any forms that are identified as needed in the future. Time Spent (mins): 30
[2020-03-12] MEDS: Atorvastatin Calcium 40 MG TAB PO SCH (20:42)
[2020-03-13] MEDS: Levothyroxine Sodium 50 MCG TAB PO SCH (05:37)
[2020-03-13] MEDS: hydrALAZINE 25 MG TAB PO SCH ×2 (08:36→20:27)
[2020-03-13] MEDS: Ezetimibe 10 MG TAB PO SCH (08:36)
[2020-03-13] MEDS: Aspirin Chewable 81 MG TAB PO SCH (08:36)
[2020-03-13] MEDS: Gabapentin 100 MG CAP PO SCH ×3 (08:36→20:27)
[2020-03-13] MEDS: Amlodipine 10 MG TAB PO SCH (08:37)
[2020-03-13] MEDS: Sodium Chloride 0.9% 1,000 ML IV SCH ×2 (08:37→17:23)
[2020-03-13] MEDS: Heparin 5,000 UNITS/ML VIAL SC SCH ×2 (08:37→20:27)
[2020-03-13] MEDS: Carvedilol 25 MG TAB PO SCH ×2 (08:37→20:27)
--- NOTE | 2020-03-13 08:44 | PDOC.HOSPP ---
- Subjective Encounter Date: 03/13/20 Encounter Time: 11:10 Subjective: No events overnight. Patient denies pain or shortness of breath. - Objective Vital Signs & Weight: Vital Signs (12 hours) Temp Pulse Resp BP Pulse Ox 03/13/20 07:58 98.2 F 85 20 131/72 91 L 03/13/20 06:22 85 15 98 03/13/20 05:45 98.5 F 84 16 107/65 96 03/13/20 02:28 77 21 H 100 03/13/20 00:00 100 03/12/20 22:09 86 16 97 Weight Admit Weight 220 lb 7.396 oz Weight 223 lb 5.252 oz Most Recent Monitor Data Heart Rate from ECG 67 NIBP 118/50 NIBP BP-Mean 72 Respiration from ECG 22 SpO2 100 I&O: 03/12/20 03/13/20 03/14/20 06:59 06:59 06:59 Intake Total 530 350 Balance 530 350 Result Diagrams: 03/09/20 06:10 03/10/20 05:10 Hospitalist ROS - Review of Systems Constitutional: denies: fever Respiratory: denies: cough, shortness of breath Cardiovascular: denies: chest pain Gastrointestinal: denies: nausea, vomiting - Medication Medications: Active Medications Generic Name Dose Route Start Last Admin Trade Name Freq PRN Reason Stop Dose Admin Acetaminophen 650 mg 03/01/20 21:52 03/11/20 14:46 Tylenol PO 650 mg Q4H PRN Administration Headache/Fever/Mild Pain (1-3) Albuterol/Ipratropium 3 ml 03/04/20 10:30 03/13/20 06:22 Duoneb NEB 3 ml [id number] TRANG Administration Amlodipine Besylate 10 mg 03/05/20 09:00 03/12/20 07:46 Norvasc PO 10 mg DAILY TRANG Administration Aspirin 81 mg 03/07/20 09:00 03/12/20 07:46 Aspirin Chewable PO 81 mg DAILY TRANG Administration Atorvastatin Calcium 40 mg 03/02/20 21:00 03/12/20 20:42 Lipitor PO 40 mg HS TRANG Administration Carvedilol 25 mg 03/04/20 21:00 03/12/20 20:42 Coreg PO 25 mg BID TRANG Administration Ezetimibe 10 mg 03/02/20 09:00 03/12/20 07:48 Zetia PO 10 mg DAILY TRANG Administration Gabapentin 100 mg 03/12/20 15:00 03/12/20 20:42 Neurontin PO 100 mg TID TRANG Administration Heparin Sodium (Porcine) 5,000 units 03/08/20 21:00 03/12/20 20:47 Heparin SC 5,000 units BID TRANG Administration Hydralazine HCl 25 mg 03/04/20 09:00 03/12/20 20:42 Apresoline PO 25 mg BID TRANG Administration Hydralazine HCl 10 mg 03/03/20 23:40 03/04/20 15:14 Apresoline PO 10 mg Q6HR PRN Administration Hypertension Hydralazine HCl 20 mg 03/05/20 12:18 03/05/20 12:25 Apresoline SLOW IVP 20 mg Q6H PRN Administration Hypertension Sodium Chloride 1,000 mls @ 0 mls/hr 03/03/20 14:30 03/12/20 23:41 Normal Saline 0.9% IV 1,000 mls .Q0M TRANG Administration KVO Latanoprost 1 drop 03/02/20 09:00 03/12/20 07:49 Xalatan 0.005% Ophth Soln EA EYE Not Given DAILY TRANG Levothyroxine Sodium 50 mcg 03/05/20 06:00 03/13/20 05:37 Synthroid PO 50 mcg 0600 TRANG Administration Ondansetron HCl 4 mg 03/02/20 11:53 03/02/20 14:14 Zofran Odt PO 4 mg Q8H PRN Administration Nausea/Vomiting Sertraline HCl 25 mg 03/02/20 09:00 03/12/20 07:45 Zoloft PO 25 mg DAILY TRANG Administration Sodium Chloride 10 ml 03/03/20 09:00 03/12/20 20:43 Flush - Normal Saline IVF 10 ml Q12HR TRANG Administration - Exam General Appearance: NAD, awake alert ENT: moist mucosa Heart: RRR, no murmur, no gallops, no rubs Respiratory: CTAB, no wheezes, no rales, no ronchi Respiratory - other findings: on NC O2 Gastrointestinal: soft, non-tender, non-distended, normal bowel sounds Psychiatric: normal affect, normal behavior Hosp A/P (1) End-stage renal disease needing dialysis Code(s): N18.6 - END STAGE RENAL DISEASE; Z99.2 - DEPENDENCE ON RENAL DIALYSIS Status: Acute (2) Acute respiratory failure Code(s): J96.00 - ACUTE RESPIRATORY FAILURE, UNSP W HYPOXIA OR HYPERCAPNIA Status: Acute Qualifiers: Respiratory failure complication: hypoxia Qualified Code(s): J96.01 - Acute respiratory failure with hypoxia (3) Obesity Code(s): E66.9 - OBESITY, UNSPECIFIED Status: Chronic (4) Volume overload Code(s): E87.70 - FLUID OVERLOAD, UNSPECIFIED Status: Acute Qualifiers: Hypervolemia type: other Qualified Code(s): E87.79 - Other fluid overload (5) Anemia Code(s): D64.9 - ANEMIA, UNSPECIFIED Status: Chronic Qualifiers: Anemia type: due to chronic kidney disease (6) Hypertension Code(s): I10 - ESSENTIAL (PRIMARY) HYPERTENSION Status: Chronic Qualifiers: Hypertension type: essential hypertension Qualified Code(s): I10 - Essential (primary) hypertension - Plan YING with CKD now on dialysis - Case management arranging this for outpatient. Pt lives at [facility] in [place]. There is no dialysis center in [place], so it has to be arranged at a facility in the [facility] area. Acute hypoxic resp failure -improved, suspect some underlying NANCY with apneic spells at night - will need chronic bipap when sleeping - oxygen during the day Anemia - stable HTN - well controlled Speech consult to assess swallowing/recommendations on food texture to optimize nutrition. Change to pureed diet for now. dvt prophy - heparin gi prophy - will discontinue as today is the last dose of prednisone code status full Planning for discharge when dialysis arranged. Pt will also need bipap at her facility - CM arranging.
--- NOTE | 2020-03-13 10:59 | PRG ---
DATE OF SERVICE: 03/13/2020 SUBJECTIVE: A 64-year-old female, being seen for end-stage renal disease. The patient denied any nausea, vomiting, or chest pain. OBJECTIVE: General: The patient is awake and alert. Vital Signs: Afebrile, pulse 86, breathing at 16, blood pressure 131/72. HEENT: Head normocephalic and atraumatic. Eyes intact, no ulcers. Nose intact, no ulcers. Ears intact, no ulcers. Neck: Supple. No JVD. Chest: Symmetrical and clear. Cardiovascular: Shows S1 and S2, no rub, no murmur. Gastrointestinal: Abdomen is soft, bowel sounds positive. Extremities: Show no edema or ulcers. Skin: Shows no rash or petechiae. Musculoskeletal: Shows no joint swelling or stiffness. Genitourinary: Shows no Napoles or CVA tenderness. Neurologic: Motor intact. Cranial nerves intact. LABORATORY DATA: Reviewed. ASSESSMENT AND PLAN: 1. Stage 3 chronic kidney disease, stable. 2. Hypertension, stable. 3. Anemia, stable. 4. Medication based on GFR appropriate. Job ID: [id number]
[2020-03-13] MEDS: Acetaminophen 325 MG TAB PO PRN ×2 (11:11→16:59)
[2020-03-13] MEDS: Latanoprost 0.005% Ophth Soln 2.5 ml Bottle EA EYE SCH (11:12)
--- NOTE | 2020-03-13 11:48 | PRG ---
DATE OF SERVICE: 03/13/2020 SUBJECTIVE: This morning, she is more responsive. OBJECTIVE: VITAL SIGNS: Temperature 98, pulse 79, respiratory rate 16, saturation 99% on room air, blood pressure 131/72. CHEST: No wheezing or crackles. CARDIAC: Normal S1 and S2. No gallops. ABDOMEN: No masses. ASSESSMENT: Morbid obesity, respiratory failure, probably sleep apnea, [id number] renal failure, diabetes. PLAN: Continue nocturnal BiPAP. Probably, she is discharged home on that. Pulmonary will follow at a distance. Call if needed. Job ID: [id number]
[2020-03-13] MEDS: Atorvastatin Calcium 40 MG TAB PO SCH (20:27)
[2020-03-14] MEDS: Sodium Chloride 0.9% 1,000 ML IV SCH ×2 (04:09→16:01)
[2020-03-14] MEDS: Levothyroxine Sodium 50 MCG TAB PO SCH (05:16)
[2020-03-14] MEDS: Latanoprost 0.005% Ophth Soln 2.5 ml Bottle EA EYE SCH (09:00)
[2020-03-14] MEDS: Heparin 5,000 UNITS/ML VIAL SC SCH ×2 (09:00→21:09)
[2020-03-14] MEDS ORDERED: Heparin 10,000 UNITS/ 10 ML VIAL ONE (11:17)
--- NOTE | 2020-03-14 11:46 | PRG ---
DATE OF SERVICE: 03/14/2020 SUBJECTIVE: A 64-year-old female, being seen for end-stage renal disease. The patient denies nausea, vomiting, or chest pain. OBJECTIVE: GENERAL: The patient is awake and alert. VITAL SIGNS: Afebrile, pulse 79, breathing at 16, blood pressure 120/66. HEENT: Head normocephalic and atraumatic. Eyes intact, no ulcers. Nose intact, no ulcers. Ears intact, no ulcers. NECK: Supple. No JVD. CHEST: Symmetrical and clear. CARDIOVASCULAR: Shows S1 and S2, no rub, no murmur. GASTROINTESTINAL: Abdomen is soft, bowel sounds positive. EXTREMITIES: Show no edema or ulcers. SKIN: Shows no rash or petechiae. MUSCULOSKELETAL: Shows no joint swelling or stiffness. GENITOURINARY: Shows no Napoles or CVA tenderness. NEUROLOGIC: Motor intact. Cranial nerves intact. LABORATORY DATA: Show hemoglobin 9.5. ASSESSMENT AND RECOMMENDATIONS: 1. Stage 6 chronic kidney disease. Continue hemodialysis. 2. Hypertension, stable. 3. Anemia, stable. 4. Medication based on GFR, appropriate. Job ID: [id number]
--- NOTE | 2020-03-14 12:24 | PDOC.HOSPP ---
- Subjective Encounter Date: 03/14/20 Subjective: Patient seen and examined at bedside this morning in dialysis denying chest pain shortness of breath fever chills nausea or vomiting no significant overnight events patient currently awaiting outpatient set up for dialysis at a snf - Objective Vital Signs & Weight: Vital Signs (12 hours) Temp Pulse Resp BP Pulse Ox 03/14/20 08:00 98.4 F 79 20 120/66 100 03/14/20 06:54 83 14 03/14/20 02:11 83 24 H 95 Weight Admit Weight 220 lb 7.396 oz Weight 223 lb 5.252 oz Most Recent Monitor Data Heart Rate from ECG 67 NIBP 118/50 NIBP BP-Mean 72 Respiration from ECG 22 SpO2 100 I&O: 03/13/20 03/14/20 03/15/20 06:59 06:59 06:59 Intake Total 350 350 Balance 350 350 Result Diagrams: 03/09/20 06:10 03/10/20 05:10 Hospitalist ROS - Medication Medications: Active Medications Generic Name Dose Route Start Last Admin Trade Name Freq PRN Reason Stop Dose Admin Acetaminophen 650 mg 03/01/20 21:52 03/13/20 16:59 Tylenol PO 650 mg Q4H PRN Administration Headache/Fever/Mild Pain (1-3) Albuterol/Ipratropium 3 ml 03/04/20 10:30 03/14/20 10:52 Duoneb NEB Not Given D6OH-DL TRANG Amlodipine Besylate 10 mg 03/05/20 09:00 03/13/20 08:37 Norvasc PO 10 mg DAILY TRANG Administration Aspirin 81 mg 03/07/20 09:00 03/13/20 08:36 Aspirin Chewable PO 81 mg DAILY TRANG Administration Atorvastatin Calcium 40 mg 03/02/20 21:00 03/13/20 20:27 Lipitor PO 40 mg HS TRANG Administration Carvedilol 25 mg 03/04/20 21:00 03/13/20 20:27 Coreg PO 25 mg BID TRANG Administration Ezetimibe 10 mg 03/02/20 09:00 03/13/20 08:36 Zetia PO 10 mg DAILY TRANG Administration Gabapentin 100 mg 03/12/20 15:00 03/13/20 20:27 Neurontin PO 100 mg TID TRANG Administration Heparin Sodium (Porcine) 5,000 units 03/08/20 21:00 03/13/20 20:27 Heparin SC 5,000 units BID TRANG Administration Hydralazine HCl 25 mg 03/04/20 09:00 03/13/20 20:27 Apresoline PO 25 mg BID TRANG Administration Hydralazine HCl 10 mg 03/03/20 23:40 03/04/20 15:14 Apresoline PO 10 mg Q6HR PRN Administration Hypertension Hydralazine HCl 20 mg 03/05/20 12:18 03/05/20 12:25 Apresoline SLOW IVP 20 mg Q6H PRN Administration Hypertension Sodium Chloride 1,000 mls @ 0 mls/hr 03/03/20 14:30 03/14/20 04:09 Normal Saline 0.9% IV 1,000 mls .Q0M TRANG Administration KVO Latanoprost 1 drop 03/02/20 09:00 03/13/20 11:12 Xalatan 0.005% Ophth Soln EA EYE Not Given DAILY TRANG Levothyroxine Sodium 50 mcg 03/05/20 06:00 03/14/20 05:16 Synthroid PO 50 mcg 0600 TRANG Administration Ondansetron HCl 4 mg 03/02/20 11:53 03/02/20 14:14 Zofran Odt PO 4 mg Q8H PRN Administration Nausea/Vomiting Sertraline HCl 25 mg 03/02/20 09:00 03/13/20 08:36 Zoloft PO 25 mg DAILY TRANG Administration Sodium Chloride 10 ml 03/03/20 09:00 03/13/20 20:28 Flush - Normal Saline IVF 10 ml Q12HR TRANG Administration - Exam General Appearance: NAD, awake alert Eye: PERRL, anicteric sclera ENT: normocephalic atraumatic Neck: supple Heart: RRR Respiratory: CTAB Gastrointestinal: soft Psychiatric: normal affect Hosp A/P (1) Acute respiratory failure Code(s): J96.00 - ACUTE RESPIRATORY FAILURE, UNSP W HYPOXIA OR HYPERCAPNIA Status: Acute Qualifiers: Respiratory failure complication: hypoxia Qualified Code(s): J96.01 - Acute respiratory failure with hypoxia (2) End-stage renal disease needing dialysis Code(s): N18.6 - END STAGE RENAL DISEASE; Z99.2 - DEPENDENCE ON RENAL DIALYSIS Status: Acute (3) Volume overload Code(s): E87.70 - FLUID OVERLOAD, UNSPECIFIED Status: Acute Qualifiers: Hypervolemia type: other Qualified Code(s): E87.79 - Other fluid overload (4) Hypertension Code(s): I10 - ESSENTIAL (PRIMARY) HYPERTENSION Status: Chronic Qualifiers: Hypertension type: essential hypertension Qualified Code(s): I10 - Essential (primary) hypertension (5) Obesity Code(s): E66.9 - OBESITY, UNSPECIFIED Status: Chronic - Plan YING with CKD now on dialysis -And undergoing hemodialysis today we will continue as per nephrology denying any complaints today - Case management arranging this for outpatient. Pt lives at [facility] in [place]. There is no dialysis center in [place], so it has to be arranged at a facility in the [facility] area. Awaiting acceptance Acute hypoxic resp failure -improved, suspect some underlying NANCY with apneic spells at night - will need chronic bipap when sleeping - oxygen during the day Anemia - stable HTN - well controlled Speech consult to assess swallowing/recommendations on food texture to optimize nutrition. Change to pureed diet for now. dvt prophy - heparin gi prophy - will discontinue as today is the last dose of prednisone code status full Planning for discharge when dialysis arranged. Pt will also need bipap at her facility - CM arranging.
[2020-03-14] MEDS: Aspirin Chewable 81 MG TAB PO SCH (14:01)
[2020-03-14] MEDS: Ezetimibe 10 MG TAB PO SCH (14:01)
[2020-03-14] MEDS: Gabapentin 100 MG CAP PO SCH ×3 (14:01→21:10)
[2020-03-14] MEDS: Amlodipine 10 MG TAB PO SCH (14:01)
[2020-03-14] MEDS: Carvedilol 25 MG TAB PO SCH ×2 (14:01→21:10)
[2020-03-14] MEDS: hydrALAZINE 25 MG TAB PO SCH ×2 (14:01→21:10)
[2020-03-14 15:31] LABS: Anion Gap 30 mmol/L (10-20); Calc. Creatinine Clearance 7 mL/min (70-130); Calcium 7.1 mg/dL (7.8-10.44); Carbon Dioxide 14 mmol/L (23-31); Chloride 92 mmol/L (98-107); Estimated GFR-MDRD 4; Glucose 151 mg/dL (80-115); Potassium 3.4 mmol/L (3.5-5.1); Sodium 133 mmol/L (136-145)
[2020-03-14 15:32] LABS: Hemoglobin 10.8 g/dL (12.0-16.0); Hypochromia SLIGHT = 6-15 cells (100X) (0-5/hpf); Lymphocytes 18 % (21-51); MDiff Complete? YES; Mean Corpuscular HGB CONC 31.6 g/dL (32.0-36.0); Mean Corpuscular Hemoglobin 28.6 pg (27.0-31.0); Mean Corpuscular Volume 90.5 fL (78.0-98.0); Mean Platelet Volume 8.3 fL (7.4-10.4); Monocytes 10 % (0-10); Neutrophil 72 % (42-75); Ovalocytes SLIGHT = 2-5 cells (100X) (0-1/hpf); Platelet Count 194 thou/uL (130-400); Platelet Morphology Comment Appears Adequate; Polychromasia SLIGHT = 2-3 cells (100X) (0-2/hpf); RBC Distribution Width 12.2 % (11.5-14.5); Red Blood Cell (RBC) Count 3.77 mill/uL (4.20-5.40); White Blood Cell (WBC) Count 11.1 thou/uL (4.8-10.8)
[2020-03-14 15:43] LABS: BUN (Urea Nitrogen) 170 mg/dL (9.8-20.1)
[2020-03-14] MEDS: Atorvastatin Calcium 40 MG TAB PO SCH (21:10)
[2020-03-14] MEDS: Acetaminophen 325 MG TAB PO PRN (23:02)
[2020-03-15] MEDS: Levothyroxine Sodium 50 MCG TAB PO SCH (05:45)
[2020-03-15] MEDS: Gabapentin 100 MG CAP PO SCH ×2 (08:33→14:50)
[2020-03-15] MEDS: Ezetimibe 10 MG TAB PO SCH (08:33)
[2020-03-15] MEDS: Heparin 5,000 UNITS/ML VIAL SC SCH (08:33)
[2020-03-15] MEDS: Aspirin Chewable 81 MG TAB PO SCH (08:33)
[2020-03-15] MEDS: Amlodipine 10 MG TAB PO SCH (08:35)
[2020-03-15] MEDS: Carvedilol 25 MG TAB PO SCH (08:36)
[2020-03-15] MEDS: hydrALAZINE 25 MG TAB PO SCH (08:36)
[2020-03-15 08:37] LABS: Hemoglobin 9.9 g/dL (12.0-16.0); Mean Corpuscular HGB CONC 33.6 g/dL (32.0-36.0); Mean Corpuscular Hemoglobin 30.4 pg (27.0-31.0); Mean Corpuscular Volume 90.5 fL (78.0-98.0); Platelet Count 223 thou/uL (130-400); RBC Distribution Width 12.2 % (11.5-14.5); Red Blood Cell (RBC) Count 3.25 mill/uL (4.20-5.40); White Blood Cell (WBC) Count 8.4 thou/uL (4.8-10.8)
[2020-03-15] MEDS: Sodium Chloride 0.9% 1,000 ML IV SCH ×2 (08:37→11:16)
[2020-03-15 09:17] LABS: Anion Gap 12 mmol/L (10-20); BUN (Urea Nitrogen) 17 mg/dL (9.8-20.1); Calc. Creatinine Clearance 21 mL/min (70-130); Calcium 8.4 mg/dL (7.8-10.44); Carbon Dioxide 28 mmol/L (23-31); Chloride 103 mmol/L (98-107); Estimated GFR-MDRD 12; Glucose 98 mg/dL (80-115); Potassium 3.5 mmol/L (3.5-5.1); Sodium 139 mmol/L (136-145)
[2020-03-15] MEDS: Latanoprost 0.005% Ophth Soln 2.5 ml Bottle EA EYE SCH (11:18)
--- NOTE | 2020-03-15 11:59 | RAD ---
TWO VIEWS OF THE LEFT FEMUR: DATE: 03/15/2020. PROVIDED CLINICAL HISTORY: Left leg pain. FINDINGS: Degenerative changes are seen at the hip and knee. There is no evidence for a fracture or other acut e osseous abnormality. If there is persistent clinical concern, conservative management and followup imaging are advised. IMPRESSION: As above. POS: BEATRIZ
--- NOTE | 2020-03-15 12:28 | RAD ---
LEFT KNEE RADIOGRAPHS 3 VIEWS: DATE: 03/15/2020. PROVIDED CLINICAL HISTORY: Pain. FINDINGS: Degenerative changes are seen. There is no evidence for a fracture or other acute osseous abnormalit y. If there is persistent clinical concern, conservative management and followup imaging are advised . IMPRESSION: As above. POS: BEATRIZ
--- NOTE | 2020-03-15 12:38 | PRG ---
DATE OF SERVICE: 03/15/2020 SUBJECTIVE: A 64-year-old female being seen for end-stage renal disease. The patient denied nausea, vomiting, or chest pain. OBJECTIVE: GENERAL: The patient is awake and alert. VITAL SIGNS: Afebrile. Pulse 53, breathing at 16, blood pressure 105/63. HEENT: Head normocephalic and atraumatic. Eyes intact, no ulcers. Nose intact, no ulcers. Ears intact, no ulcers. NECK: Supple. No JVD. CHEST: Symmetrical and clear. CARDIOVASCULAR: Shows S1 and S2, no rub, no murmur. GASTROINTESTINAL: Abdomen is soft, bowel sounds positive. EXTREMITIES: Show no edema or ulcers. SKIN: Shows no rash or petechiae. MUSCULOSKELETAL: Shows no joint swelling or stiffness. GENITOURINARY: Shows no Napoles or CVA tenderness. NEUROLOGIC: Motor intact. Cranial nerves intact. LABORATORY DATA: Reviewed. ASSESSMENT: 1. Stage chronic kidney disease, stable. 2. , stable. 3. Anemia, stable. 4. Medication based on GFR appropriate. Job ID: [id number]
[2020-03-15 14:06] VITALS: BP 111/72
[2020-03-15 17:48] VITALS: TEMP 98.2
--- NOTE | 2020-03-15 20:34 | DIS ---
DATE OF ADMISSION: 03/01/2020 DATE OF DISCHARGE: 03/15/2020 DISCHARGE DIAGNOSES: 1. Acute hypoxic respiratory failure, likely secondary to pulmonary edema versus obesity hypoventilation syndrome versus chronic obstructive pulmonary disease versus obstructive sleep apnea. 2. Acute hypoxic/hypercapnic respiratory failure secondary to obstructive sleep apnea/obesity hypoventilation syndrome. 3. Newly diagnosed end-stage renal disease. 4. Hyperkalemia. 5. Anemia. 6. Fibroid uterus CONSULTATION: Dr. Mao Kc with pulmonary critical care, Dr. Susan Norris with nephrology PROCEDURES: right internal tunneled dialysis catheter 03/10 BRIEF HISTORY OF PRESENT ILLNESS: This is a 64-year-old female, who has a history of multiple strokes and is at baseline, has left-sided weakness and paralysis and is chronically bed-bound. She came to the emergency room due to feeling shortness of breath and diminished appetite. When the patient presented to the emergency room, she had an oxygen saturation of 92% on room air. Her chest x-ray showed mild effusion. She was tested for COVID and admitted for further workup. HOSPITAL COURSE: Acute hypoxic and hypercapnic respiratory failure secondary to pulmonary edema with obesity hypoventilation/NANCY versus COPD exacerbation: The patient was tested for COVID and it came back negative. She was requiring 2 L nasal cannula. Her x-ray had shown some cardiomegaly. She was started on IV Lasix. Her echo showed normal EF of 60% to 65%. On 03/03, the patient became hypoxic and progressively more drowsy. She had no urine output with lasix. An ABG showed a pH of 6.99 and a pCO2 of 101. The patient was transferred to the ICU and was intubated.She was started on IV steroids and IV antibiotics. She was extubated on 03/04. She was then transitioned to nocturnal BiPAP. She eventually did well and was transferred to the floor. On the time of discharge, she was on room air. She did receive a course of antibiotics with IV Zosyn from 03/05 to 03/08. She finished a course of steroids. She will be [facility] to her [facility] and needs to use BiPAP at night. She should follow up with a product support analyst and consider getting an outpatient sleep study. Newly diagnosed end-stage renal disease/hyperkalemia: The patient initially had presented with a creatinine of 2.31. On 03/03, her creatinine continued to increase to 3.6, and she had minimal urine output. Due to her potassium being 7.1, she was emergently started on dialysis. She will continue with dialysis as an outpatient and will be getting it Tuesdays, , and Saturdays. She should follow up with a rn pain management in a week. Her creatinine at the time of discharge was 4.40. Anemia: The patient's hemoglobin was 9.9. She should consider Procrit injections as an outpatient. Hypertension: The patient was resumed on amlodipine 10 mg daily on discharge. Dysphagia: The patient was seen by Speech and was recommended to be on a pureed diet. Left leg pain: On the day of discharge, the patient reported 8/10 left leg pain with movement. She was able to lift up her left leg, but it is chronically weak due to a stroke. She did have some pain with external rotation. Therefore, femur x -ray and knee x-ray were done, which showed no fracture. She was started on gabapentin while in the hospital and will be discharged with this. She can take Tylenol p.r.n. I will avoid narcotics given her history of obesity hypoventilation syndrome. Vaginal bleeding: patient did have an episode of vaginal bleeding. PElvic US showed fibroid uterus. She has had no further occurrences of vaginal bleeding. Consider further workup as an outpatient. DISCHARGE PHYSICAL EXAMINATION: VITAL SIGNS: Temperature 98.2, heart rate 80, respiratory rate 14, O2 saturation 92% on room air, and blood pressure 111/72. GENERAL: The patient is alert, awake, and oriented x3. She is morbidly obese. CVS: Regular rate and rhythm with no murmurs, rubs, or gallops. LUNGS: Clear to auscultation bilaterally. ABDOMEN: Positive bowel sounds, soft, nontender, nondistended. EXTREMITIES: The patient has decreased range of motion in the left leg. She does have pain with external rotation of her left leg. She does have left-sided deficit at baseline from an old stroke. LABORATORY DATA: CBC 03/15: White count 8.4, hemoglobin 9.9, hematocrit 29.4, platelet count 223. BMP 03/15: Unremarkable except for creatinine of 4.40. Ferritin: 60.08. Hemoglobin A1c: 5.0. TSH: 0.84. COVID serology 03/01: Negative. Hepatitis B serology 03/03: Negative. IMAGING: Echo 03/03: EF 60% to 65%. Moderately to severely dilated left atrium. Mild MR. Mild TR. Chest x-ray on 03/01: Cardiomegaly. Small left pleural effusion. Renal ultrasound on 03/03: Medical renal disease. No hydronephrosis. Chest x-ray 03/06: Multifocal areas of airspace opacity in the right lung. Pelvic renal ultrasound on 03/07: Fibroid uterus. Chest x-ray 03/10: Left lower lobe infiltrate. Femur x-ray 03/15: No evidence of fracture. Degenerative changes of the hip or knee. Knee x-ray 03/15: No evidence of fracture. DISCHARGE CONDITION: Stable to discharge to [facility]. ACTIVITY: As tolerated. DIET: Pureed diet. DISCHARGE MEDICATIONS: 1. Aspirin 81 mg p.o. daily. 2. Gabapentin 100 mg p.o. daily three times weekly to give during hemodialysis. All other home medications were resumed. The patient should be started on nocturnal BiPAP on discharge. DISCHARGE INSTRUCTIONS: The patient to follow up with her PCP in a week. Consider repeat chest x-ray in 6 weeks to evaluate for resolution of left lower lobe infiltrate. For her left leg pain, the patient can take Tylenol or gabapentin. Consider outpatient sleep study. Consider further workup of fibroid uterus Job ID: [id number] [facility]
== END 2020-03-15 18:12 | disposition home or self-care (01) | DRG 673 ==
LOC: ERS 16:23 → T4-A 21:23 → OBSVTOIN 21:23 → T4-A 23:41 → CCU 03-03 14:23 → IMCU/EMU 03-06 13:02 → T4-A 03-07 14:58
PROVIDERS: ADMIT Internal Medicine; ATTEND Internal Medicine
PROC: 5A1D70Z Performance of Urinary Filtration, Intermittent, Less than 6 Hours Per Day (ICD-10-PCS; principal; 2020-03-03)
PROC: 5A1945Z Respiratory Ventilation, 24-96 Consecutive Hours (ICD-10-PCS; 2020-03-03)
PROC: 0BH18EZ Insertion of Endotracheal Airway into Trachea, Via Natural or Artificial Opening Endoscopic (ICD-10-PCS; 2020-03-03)
PROC: 06HY33Z Insertion of Infusion Device into Lower Vein, Percutaneous Approach (ICD-10-PCS; 2020-03-03)
PROC: 0T9B70Z Drainage of Bladder with Drainage Device, Via Natural or Artificial Opening (ICD-10-PCS; 2020-03-03)
PROC: 3E033XZ Introduction of Vasopressor into Peripheral Vein, Percutaneous Approach (ICD-10-PCS; 2020-03-03)
PROC: 5A09357 Assistance with Respiratory Ventilation, Less than 24 Consecutive Hours, Continuous Positive Airway Pressure (ICD-10-PCS; 2020-03-05)
PROC: 0JH63XZ Insertion of Tunneled Vascular Access Device into Chest Subcutaneous Tissue and Fascia, Percutaneous Approach (ICD-10-PCS; 2020-03-10)
PROC: 02HV33Z Insertion of Infusion Device into Superior Vena Cava, Percutaneous Approach (ICD-10-PCS; 2020-03-10)
PROC: B518ZZA Fluoroscopy of Superior Vena Cava, Guidance (ICD-10-PCS; 2020-03-10)
PROC: 02HV33Z Insertion of Infusion Device into Superior Vena Cava, Percutaneous Approach (ICD-10-PCS; 2020-03-10)
PROC: B548ZZA Ultrasonography of Superior Vena Cava, Guidance (ICD-10-PCS; 2020-03-10)
DX: N17.9 Acute kidney failure, unspecified (principal); J96.21 Acute and chronic respiratory failure with hypoxia; G93.41 Metabolic encephalopathy; J69.0 Pneumonitis due to inhalation of food and vomit; J96.22 Acute and chronic respiratory failure with hypercapnia; E66.2 Morbid (severe) obesity with alveolar hypoventilation; E87.0 Hyperosmolality and hypernatremia; E87.2 Acidosis; I12.0 Hypertensive chronic kidney disease with stage 5 chronic kidney disease or end stage renal disease; G93.1 Anoxic brain damage, not elsewhere classified; I69.354 Hemiplegia and hemiparesis following cerebral infarction affecting left non-dominant side; Z20.828 Contact with and (suspected) exposure to other viral communicable diseases; N18.6 End stage renal disease; E87.5 Hyperkalemia; D63.1 Anemia in chronic kidney disease; D25.9 Leiomyoma of uterus, unspecified; R13.10 Dysphagia, unspecified; N93.9 Abnormal uterine and vaginal bleeding, unspecified; E11.22 Type 2 diabetes mellitus with diabetic chronic kidney disease; E78.5 Hyperlipidemia, unspecified; H40.9 Unspecified glaucoma; M81.0 Age-related osteoporosis without current pathological fracture; G40.909 Epilepsy, unspecified, not intractable, without status epilepticus; E87.8 Other disorders of electrolyte and fluid balance, not elsewhere classified; E87.70 Fluid overload, unspecified; D32.9 Benign neoplasm of meninges, unspecified; E86.0 Dehydration; I16.0 Hypertensive urgency; Z79.899 Other long term (current) drug therapy; Z74.01 Bed confinement status; Z68.33 Body mass index [BMI] 33.0-33.9, adult; Z79.890 Hormone replacement therapy; Z90.49 Acquired absence of other specified parts of digestive tract; Z51.5 Encounter for palliative care
CPT/HCPCS: 36415; 36416; 71045; 76770; 76857; 80048; 80053; 80202; 81001; 82728; 82805; 83036; 83605; 83735; 83880; 84443; 84484; 85025; 85027; 85379; 86140; 86580; 86704; 86706; 86803; 87040; 87340; 87635; 90935; 93005; 93010; 93306; 93970; 94002; 94003; 94640; 94660; 96365; 96372; A4353; C1752; C9113; G0257; G0365; G0378; J0360; J0456; J0690; J0696; J1642; J1644; J1650; J1815; J1940; J2060; J2270; J2543; J2704; J2920; J3010; J3370; J3490; J7030; J7050; J7512; J7620; P9045; Q0162; S0020; U0003

== ENCOUNTER 2020-04-05 11:23 | Emergency (ER) | payer OTHER ==
[2020-04-05 11:56] LABS: #Basophils 0.1 thou/uL (0.0-0.2); #Lymphocytes 1.4 thou/uL (1.20-3.40); #Monocytes 0.7 thou/uL (0.11-0.59); #Neutrophils 6.2 thou/uL (1.40-6.50); %Basophils 0.6 % (0.0-1.0); %Eosinophils 0.1 % (0.0-10.0); %Lymphocytes 16.8 % (21.0-51.0); %Monocytes 8.6 % (0.0-10.0); %Neutrophils 73.9 % (42.0-75.0); Hemoglobin 12.3 g/dL (12.0-16.0); Mean Corpuscular HGB CONC 31.9 g/dL (32.0-36.0); Mean Corpuscular Hemoglobin 29.7 pg (27.0-31.0); Mean Corpuscular Volume 92.9 fL (78.0-98.0); Mean Platelet Volume 8.5 fL (7.4-10.4); Platelet Count 209 thou/uL (130-400); RBC Distribution Width 14.2 % (11.5-14.5); Red Blood Cell (RBC) Count 4.15 mill/uL (4.20-5.40); White Blood Cell (WBC) Count 8.4 thou/uL (4.8-10.8)
[2020-04-05 12:27] LABS: ALT (SGPT) 12 U/L (8-55); AST (SGOT) 38 U/L (5-34); Albumin 3.3 g/dL (3.4-4.8); Alkaline Phosphatase 81 U/L (40-110); Anion Gap 13 mmol/L (10-20); BUN (Urea Nitrogen) 4 mg/dL (9.8-20.1); Bilirubin, Total 0.6 mg/dL (0.2-1.2); Calc. Creatinine Clearance 0 mL/min (70-130); Calcium 8.9 mg/dL (7.8-10.44); Carbon Dioxide 33 mmol/L (23-31); Chloride 98 mmol/L (98-107); Estimated GFR-MDRD 23; Globulin 4.5 g/dL (2.4-3.5); Glucose 113 mg/dL (80-115); Potassium 3.6 mmol/L (3.5-5.1); Protein, Total 7.8 g/dL (6.0-8.3); Sodium 140 mmol/L (136-145)
--- NOTE | 2020-04-05 12:33 | RAD ---
PORTABLE CHEST: HISTORY: Hypotension. COMPARISON: 03/10/2020 exam. FINDINGS: Heart size is enlarged. A right-sided HemoSplit catheter is present. Lungs are clear of infiltrates . There are no signs of failure. IMPRESSION: Mild cardiomegaly. POS: FAITH
== END 2020-04-05 14:26 ==
LOC: ERS 11:23
DX: I95.9 Hypotension, unspecified (principal); D64.9 Anemia, unspecified; G40.909 Epilepsy, unspecified, not intractable, without status epilepticus; Z86.73 Personal history of transient ischemic attack (TIA), and cerebral infarction without residual deficits; E11.9 Type 2 diabetes mellitus without complications; E78.5 Hyperlipidemia, unspecified; F32.9 Major depressive disorder, single episode, unspecified; Z79.899 Other long term (current) drug therapy
CPT/HCPCS: 71045; 80053; 85025; 93005; 96360; 96361